=== PATIENT | female | born 1970 | race Caucasian/White ===

== ENCOUNTER 2020-03-16 18:00 | Inpatient (IN) | payer MEDICAID ==
[~2020-03-16] VITALS: Ht 175.3 cm; Wt 70.8 kg
[2020-03-16 19:09] LABS: BASOPHILS 0.1 % (0-2); HEMATOCRIT 36.9 % (36.0-48.0); HEMOGLOBIN 12.3 g/dL (12-16); IMMATURE GRANULOCYTES 0.6 % (0-5); LYMPHOCYTES 12.6 % (15-50); MCHC 33.3 g/dL (31.0-37.0); MEAN PLATELET VOLUME 8.5 fL (7.4-10.4); MONOCYTES 7.6 % (2-11); NEUTROPHILS 78.1 % (40-80); RDW 18.6 % (11.5-14.5); WBC 10.8 10x3/uL (4.8-10.8)
[2020-03-16 19:22] LABS: APTT 25.8 SECONDS (22.8-39.4); INR 0.99 (0.85-1.17)
[2020-03-16 19:23] LABS: ANION GAP 12.9 mmol/L (8-16); CALCIUM 9.2 mg/dL (8.5-10.1); CARBON DIOXIDE 28.9 mmol/L (21.0-32.0); CREATININE - SERUM 0.9 mg/dL (0.6-1.3); POTASSIUM - SERUM 3.8 mmol/L (3.5-5.1)
[2020-03-16 19:28] LABS: ALBUMIN 2.7 g/dL (3.4-5.0); BILIRUBIN - TOTAL 0.58 mg/dL (0.2-1.3); PROTEIN - SERUM 7.3 g/dL (6.4-8.2)
[2020-03-16 19:35] LABS: PLATELET COUNT 372 10x3/uL (130-400)
[2020-03-16 20:10] LABS: BILIRUBIN NEGATIVE (NEGATIVE); KETONE NEGATIVE (NEGATIVE); NITRITE NEGATIVE (NEGATIVE); UROBILINOGEN NORMAL (NORMAL)
[2020-03-16 20:11] LABS: BACTERIA FEW /hpf (NONE SEEN); WHITE CELLS - URINE 0-5 /hpf (0-5)
[2020-03-16 23:13] VITALS: BP 117/89; BMI 23.2
--- NOTE | 2020-03-16 23:45 | NUR ---
PROVIDED SANDWICH TRAY BEFORE MIDNIGHT. PATIENT VERBALIZES UNDERSTANDING OF NPO STATUS AFTER MIDNIGHT. CALL LIGHT CLOSE. CPOC.
[2020-03-17 06:58] LABS: BASOPHILS 0 % (0-2); EOSINOPHILS 1.7 % (0-7); HEMATOCRIT 33.7 % (36.0-48.0); IMMATURE GRANULOCYTES 0.4 % (0-5); MCH 28.9 pg (26.0-34.0); MCHC 32.6 g/dL (31.0-37.0); MCV 88.7 fL (80.0-100.0); MEAN PLATELET VOLUME 8.8 fL (7.4-10.4); MONOCYTES 8.8 % (2-11); NEUTROPHILS 74.1 % (40-80); PLATELET COUNT 393 10x3/uL (130-400); RDW 18.6 % (11.5-14.5)
[2020-03-17 07:26] LABS: INR 0.98 (0.85-1.17); PROTIME 12.9 SECONDS (11.6-15.0)
[2020-03-17 07:31] LABS: APTT 31.1 SECONDS (22.8-39.4)
[2020-03-17 07:45] LABS: CALC OSMOLALITY 277 mosm/kg (275-300); CALCIUM 8.5 mg/dL (8.5-10.1); CARBON DIOXIDE 26.9 mmol/L (21.0-32.0); CHLORIDE - SERUM 101 mmol/L (98-107); CREATININE - SERUM 0.7 mg/dL (0.6-1.3); GLUCOSE 104 mg/dL (74-106); MAGNESIUM - SERUM 2.1 mg/dL (1.8-2.4); PHOSPHOROUS 4.3 mg/dL (2.5-4.9); POTASSIUM - SERUM 3.9 mmol/L (3.5-5.1); PRO BNP 31 pg/mL (0-125); SODIUM 138 mmol/L (136-145); UREA NITROGEN 18 mg/dL (7-18); eGFR NON AFRICAN AMERICAN > 90 mL/min (90-120)
--- NOTE | 2020-03-17 09:01 | NUR ---
0700 BEDSIDE REPORT RCEIVED INSTRUCTED PT TO REMAIN NPO FOR PROCEEDURE VRBALIZED UNDERSTANDING.
--- NOTE | 2020-03-17 09:02 | NUR ---
0900 PATIENT NOT IN ROOM CALLED IR TO VERIFY THAT STAFF CAME TO GET HER FOR PARACENTHESIS
[2020-03-17 09:48] VITALS: BP 119/72
[2020-03-17 10:05] VITALS: BP 109/64
[2020-03-17 10:11] VITALS: Ht 175.3 cm; Wt 70.8 kg
[2020-03-17 12:00] VITALS: BP 93/60
[2020-03-17 15:40] LABS: ANION GAP 9.7 mmol/L (8-16); CALCIUM 8.4 mg/dL (8.5-10.1); CARBON DIOXIDE 30.8 mmol/L (21.0-32.0); MAGNESIUM - SERUM 1.9 mg/dL (1.8-2.4); PHOSPHOROUS 3.5 mg/dL (2.5-4.9); POTASSIUM - SERUM 3.5 mmol/L (3.5-5.1)
[2020-03-17 15:42] LABS: CREATININE - SERUM 0.9 mg/dL (0.6-1.3)
[2020-03-17 17:14] VITALS: BP 102/64
[2020-03-17 20:00] VITALS: BP 99/67
--- NOTE | 2020-03-17 20:00 | NUR ---
PATIENT RESTING IN BED WATCHING TV. NO S/S OF ACUTE DISTRESS. NO C/O AT THIS TIME. PATIENT HAS A LEFT FOREARM, SALINE LOC. IV IS PATENT WITHOUT REDNESS, SWELLING, OR TENDERNESS. PATIENT HAS A RIGHT PORT THAT IS NOT TO BE USED. PATIENT HAS A SMALL INCISION ON RIGHT SIDE FROM PARACENTISIS. CALL LIGHT WITHIN REACH. WILL CONTINUE TO MONITOR.
--- NOTE | 2020-03-17 20:04 | NUR ---
RETURND FROM IR WITH SMALL INCISION TO RLQ SITE CD NO DRAINAGE NOTED
--- NOTE | 2020-03-17 20:05 | NUR ---
1700 AMBULATING IN HALLS WITHOUT COMPLICATIONS
[2020-03-18 04:00] VITALS: BP 97/61
--- NOTE | 2020-03-18 05:14 | NUR ---
I have reviewed this patient and I concur with the Shift Assessment completed by the Licensed Practical Nurse today this shift.
[2020-03-18 06:34] LABS: BASOPHILS 0.1 % (0-2); EOSINOPHILS 1.2 % (0-7); HEMATOCRIT 32.2 % (36.0-48.0); HEMOGLOBIN 10.4 g/dL (12-16); IMMATURE GRANULOCYTES 0.4 % (0-5); LYMPHOCYTES 16.2 % (15-50); MCH 28.7 pg (26.0-34.0); MCHC 32.3 g/dL (31.0-37.0); MEAN PLATELET VOLUME 8.9 fL (7.4-10.4); MONOCYTES 8.7 % (2-11); NEUTROPHILS 73.4 % (40-80); PLATELET COUNT 340 10x3/uL (130-400); RBC 3.62 10x6/uL (4.00-5.40); RDW 18.6 % (11.5-14.5); WBC 8.1 10x3/uL (4.8-10.8)
[2020-03-18 06:51] LABS: ANION GAP 10.6 mmol/L (8-16); CALCIUM 8.1 mg/dL (8.5-10.1); CARBON DIOXIDE 28.9 mmol/L (21.0-32.0); CREATININE - SERUM 0.9 mg/dL (0.6-1.3); MAGNESIUM - SERUM 1.9 mg/dL (1.8-2.4); PHOSPHOROUS 3.6 mg/dL (2.5-4.9); POTASSIUM - SERUM 3.5 mmol/L (3.5-5.1)
--- NOTE | 2020-03-18 08:00 | NUR ---
ALERT AND ORIENTED X4 WITH DRESSING INTACT TO ABDOMEN. UP ADLIB AND DENIES ANY PAIN OR DISCOMFORT AT THIS TIME. ABDOMEN SOFT WITH BOWEL SOUNDS NOTED. ENCOURAGED TO USE CALL LIGHT FOR ASSSIT.
[2020-03-18 09:24] VITALS: BP 93/67
[2020-03-18 13:51] VITALS: BP 96/60
[2020-03-18] MEDS ORDERED: OMNICEF300 MG PO (15:07)
[2020-03-18] MEDS ORDERED: NICODERM CQ1 EAC3 TOPICAL (15:26)
--- NOTE | 2020-03-18 16:05 | NUR ---
IV DISCONTINUED AND VERBALIZED UNDERSTANDING OF DISCHARGE INSTRUCTIONS. STABLE AT TIME OF DEPARTURE.
== END 2020-03-18 16:05 | disposition home or self-care (01) | DRG 948 ==
LOC: D.ER 18:00 → D.MS 22:03 → OBSVTIME 22:03 → D.MS 03-17 14:49
PROVIDERS: Emergency Medicine; Family Medicine; Specialist; ADMIT Family Medicine; ATTEND Family Medicine
PROC: 0W9G3ZZ Drainage of Peritoneal Cavity, Percutaneous Approach (ICD-10-PCS; principal; 2020-03-17 09:05)
DX: R18.8 Other ascites (principal); F17.203 Nicotine dependence unspecified, with withdrawal; C56.9 Malignant neoplasm of unspecified ovary; N39.0 Urinary tract infection, site not specified

== ENCOUNTER 2020-03-28 08:19 | Inpatient (IN) | payer MEDICAID ==
[~2020-03-28] VITALS: Ht 167.6 cm; Wt 70.0 kg
--- NOTE | ~2020-03-28 | HEMODYNAMI ---
PATIENT:DASHA MCFARLAND MEDICAL RECORD: [id number] : 70 LOCATION:DRicardoAL [id number] ADMISSION DATE: 03/29/20 Generatedon:03/31/202010:12 Patient name: DASHA MCFARLAND Patient #: [id number] SSN: D OB: 1970 Date of study: 03/31/2020 Page: Of Hemodynamic Procedure Report Patient Data Patient Demographics Procedure consent was obtained First Name: DASHA Gender: Female Last Name: BARTOLO : 1970 Middle Initial: A Age: 50 year(s) Patient #: [id number] Race: Unknown Additional ID: [id number] Contact details Address: [address] [place] [address] State: [place] City: [facility] Zip code: [address] Past Medical History Allergies Allergen Reaction Date Comments Reported Penicillins 03/31/2020 Admission Admission Data Admission Date: 03/29/2020 Admission Time: 17:44 Room #: 2202 Procedure Procedure Types Cath Procedure Peripheral Cath Diagnostic Procedure Miscellaneous Pleurex Pleurex Cath Place w/ Imaging Procedure Description Procedure Date Procedure Date: 03/31/2020 Procedure Start Time: 9:30 Procedure End Time: 10:11 Procedure Staff Name Function Nimesh Bang MD Performing Physician ANTELMO JOINER RT Monitor Rickie Zapien RT Scrub Kandice Cruz RN Nurse Ana COLLINS RN Nurse Procedure Data Cath Procedure Fluoroscopy Diagnostic fluoroscopy Total fluoroscopy Time: 1.2 time: 1.2 min min Diagnostic fluoroscopy Total fluoroscopy dose: 43 dose: 43 mGy mGy Procedure Medications Medication Administration Route Dosage Heparin Flush Bag added to field 3 bags (1000units/500ml NS) Lidocaine 1% added to field 20 Vancomycin I.V.P.B 1 g Fentanyl I.V. 50 mcg Versed I.V. 1 mg Fentanyl I.V. 25 mcg Versed I.V. 0.5 mg Fentanyl I.V. 25 mcg Versed I.V. 0.5 mg Hemodynamics Rest Heart Rate: 103 (bpm) Snapshots Pre Cath Intra NCS Post Cath Vital Signs Time Heart Resp SPO2 etCO2 NIBP (mmHg) Rhythm Pain Status Sedation Rate (ipm) (%) (mmHg) Level (bpm) 8:46:48 101 15 0 106/73(82) NSR 0 (11) , No 10(A) pain 8:50:47 101 21 31.4 108/77(89) NSR 0 (11) , No 10(A) pain 8:54:47 100 19 32.9 110/77(87) NSR 0 (11) , No 10(A) pain 8:58:46 100 18 32.2 113/77(92) NSR 0 (11) , No 10(A) pain 9:02:48 96 21 24.7 112/76(92) NSR 0 (11) , No 10(A) pain 9:06:52 95 22 20.2 113/66(86) NSR 0 (11) , No 10(A) pain 9:10:54 96 19 30.7 117/78(90) NSR 0 (11) , No 10(A) pain 9:14:57 97 20 100 30.7 115/76(96) NSR 0 (11) , No 10(A) pain 9:18:59 98 16 100 33.7 112/77(98) NSR 0 (11) , No 10(A) pain 9:23:01 99 16 100 32.9 112/78(92) NSR 0 (11) , No 10(A) pain 9:27:01 101 16 32.9 114/81(96) NSR 4 (11) , 9(A) Distressing 9:31:02 99 18 32.2 112/78(91) NSR 3 (11) , 9(A) Tolerable 9:35:02 100 16 100 36.7 115/79(92) NSR 3 (11) , 9(A) Tolerable 9:39:01 100 14 99 35.9 119/83(93) NSR 0 (11) , No 8(A) pain 9:43:03 100 12 100 37.4 119/77(108) NSR 0 (11) , No 8(A) pain 9:47:07 101 11 100 35.9 119/78(90) NSR 0 (11) , No 8(A) pain 9:51:08 99 12 100 37.4 112/81(93) NSR 0 (11) , No 8(A) pain 9:55:06 96 12 99 37.4 117/82(102) NSR 0 (11) , No 8(A) pain 9:59:08 98 13 100 38.9 117/76(91) NSR 0 (11) , No 8(A) pain 10:03:10 95 17 100 32.9 112/73(89) NSR 0 (11) , No 9(A) pain 10:07:07 100 15 100 36.7 113/83(96) NSR 0 (11) , No 9(A) pain 10:11:09 95 15 100 34.4 115/73(102) NSR 0 (11) , No 9(A) pain Medications Time Medication Route Dose Verified Delivered Reason Notes Effe ctiveness by by 8:53:19 Heparin Flush added 3 Nimesh Beavers used for Bag to bags Beti Bang MD procedure (1000units/500ml field WEI NS) 8:53:32 Lidocaine 1% added 20ml Nimesh Beavers for local to vial Beti Bang MD anesthetic field WEI 8:53:50 Vancomycin I.V.P.B 1 g Nimesh Perez Per KARINA Bang physician RN 9:26:36 Fentanyl I.V. 50 Nimesh Mcdonaldr for mcg Burda, KARINA sedation RN 9:26:43 Versed I.V. 1 mg Nimesh Perez for Burda, KARINA sedation RN 9:30:31 Fentanyl I.V. 25 Nimesh Mcdonaldr for mcg Burda, KARINA sedation RN 9:30:34 Versed I.V. 0.5 Nimesh Minner for mg Burda, KARINA sedation RN 9:36:44 Fentanyl I.V. 25 Nimesh Mcdonaldr for mcg Burda, KARINA sedation RN 9:36:51 Versed I.V. 0.5 Nimesh Minner for mg Burda, KARINA sedation grey tender Log Time Note 8:45:28 Kandice Cruz RN sent for patient. Start room use. 8:45:29 Time tracking: Regular hours (M-F 7:00 - 5:00) 8:45:34 Plan of Care:Hemodynamics will remain stable., Cardiac rhythm will remain stable., Comfort level will be maintained., Respiratory function will remain adequate., Patient/ family verbilizes understanding of procedure., Procedure tolerated without complication., Recovers from procedure without complications.. 8:45:39 Patient received from Med/Surg to IR Alert and oriented. Tansferred to table in Supine position. 8:45:41 Signed procedure consent form obtained from patient. 8:45:42 Warm blankets applied, and junaid hugger turned on for patient comfort. 8:45:43 Correct patient and procedure confirmed by team. 8:45:43 ECG and BP/O2 sat monitors applied to patient. 8:45:45 Vital chart was started 8:45:58 Baseline sample Acquired. 8:46:14 Full Disclosure recording started 8:46:14 - 8:46:19 H&P Date Dictated: 03/31/2020 Within 30 days and on chart.. 8:46:21 Pre-op teaching completed and patient verbalized understanding. 8:46:22 Pre-procedure instructions explained to patient. 8:46:27 Family in patients room. 8:46:29 Patient NPO since Midnight. 8:46:34 Patient allergic to Penicillins 8:48:49 Is the patient allergic to Iodine/contrast media? No. 8:48:50 Is patient on blood thinner?Yes 8:48:52 Patient diabetic? No. 8:48:55 - 8:48:57 ----Pre-sedation anethsthesia assessment.---- 8:48:59 Previous problem with sedation/anesthesia? No ? 8:49:02 Snore? Yes 8:49:04 Sleep apnea? No 8:49:06 Deviated septum? No 8:49:08 Opens mouth fully? Yes 8:49:12 Sticks out tongue? Yes 8:49:18 Airway obstruction? No ? 8:49:25 Dentures? No ? 8:51:49 - 8:53:19 Heparin Flush Bag (1000units/500ml NS) 3 bags added to field was administered by Nimesh Bang MD; used for procedure; Verbal order read back and verified. 8:53:32 Lidocaine 1% 20ml vial added to field was administered by Nimesh Bang MD; for local anesthetic; Verbal order read back and verified. 8:53:50 Vancomycin 1 g I.V.P.B was administered by Ana COLLINS RN; Per physician; Verbal order read back and verified. 9:07:18 Right abdomen area was prepped with chlora-prep and draped in sterile fashion 9:07:19 Alarms reviewed by Malinda Batres 9:07:20 Sharps counted by scrub and verified by Trey 9:07:21 - 9:12:50 ASPIRA PLEURAL DRAIN CATH ([id number]) opened to sterile field. 9:24:37 - 9:24:39 Physician arrived 9:25:06 --------ALL STOP TIME OUT------ ::07 Final Timeout: patient, procedure, and site verified with staff and physician. All members of the team are in agreement. :25:11 Right abdomen site verified by team. ::15 Fire Safety Assessment: A--An alcohol-based skin anteseptic being used preoperatively., C--Open oxygen or nitrous oxide is being used. 9:25:23 - 9:25:26 Use device set IR Diagnostic 9:25:27 Bag Decanter () opened to sterile field. 9:25:27 Sterile Angiographic Pack opened to sterile field. 9:25:28 Tegaderm 4 x 4 ([id number]) opened to sterile field. 9:25:58 - 9:26:36 Fentanyl 50 mcg I.V. was administered by Ana COLLINS RN; for sedation; Verbal order read back and verified. 9::43 Versed 1 mg I.V. was administered by Ana COLLINS RN; for sedation; Verbal order read back and verified. 9:30:02 MICROPUNCTURE 4FR Tarari ([id number]) opened to sterile field. 9:30:08 Procedure started. 9:30:17 Local anesthetic to Abdominal area with Lidocaine 1% by Nimesh Bang MD.INITIAL ACCESS ONLY 9:30:31 Fentanyl 25 mcg I.V. was administered by Ana COLLINS RN; for sedation; Verbal order read back and verified. 9:30:34 Versed 0.5 mg I.V. was administered by Ana COLLINS RN; for sedation; Verbal order read back and verified. 9:35:27 Local anesthetic to Abdominal area with Lidocaine 1% by Nimesh Bang MD.ADDITIONAL ACCESS 9:36:44 Fentanyl 25 mcg I.V. was administered by Ana COLLINS RN; for sedation; Verbal order read back and verified. 9:36:51 Versed 0.5 mg I.V. was administered by Ana COLLINS RN; for sedation; Verbal order read back and verified. 9:59:21 AMPLATZ Super Stiff 75cm wire ([id number]) opened to sterile field. 9:59:47 ASPIRA DRESSING KIT ([id number] opened to sterile field. 10:00:13 Dermabond Pen opened to sterile field. 10:00:22 3-0 Vicryl Single Pack [id number] opened to sterile field. 10:00:27 2-0 Silk 685H opened to sterile field. 10:07:25 - 10:10:03 Procedure ended.(Physican Out) 10:10:07 Fluoroscopy time 01.20 minutes. 10:10:10 Fluoroscopy dose: 43 mGy 10:10:10 Flurop Dose total: 43 10:10:13 Sharps counted by scrub and verified by R.NRicardo 10:10:24 Post-op/insertion site Right Abdominal area dressed using a Dermabond, 4x4 and tegaderm.. 10:10:43 Post procedure instruction explained to patient.Patient verbalizes understanding. 10:10:45 Procedure and supply charges have been captured, reviewed, submitted an d are correct. 10:11:16 Vital chart was stopped 10:11:29 Operative report dictated upon procedure completion. 10:11:30 See physician's report for complete and final results. 10:11:32 Procedure ended. 10:11:32 Full Disclosure recording stopped Device Usage Item Name Manufacture Quantity Catalog Hospital Part Current Minima l Lot# / Number Charge Number Stock Stock Serial# Code ASPIRA Merit 1 [id number] [id number] [id number] 1 PLEURAL DRAIN Medical CATH ([id number]) Bag Decanter Microtek 1 2001S 900424 29114 [id number] 5 (2001S) Medical Inc. Sterile Cardinal 1 [id number] 882249 668445 5 Angiographic Health Pack Tegaderm 4 x 3M 1 1626W 382763 881242 347163 5 4 (1626W) MICROPUNCTURE Cook Medical 1 [id number] 134626 686521 161814 5 4FR Cook ([id number]) AMPLATZ Super [place] 1 [id number] 569246 848936 947141 5 Stiff 75cm Scientific wire ([id number]) ASPIRA Merit 1 [id number] 819977 691591 1 DRESSING KIT Medical ([id number] Dermabond Pen Ethicon 1 [id number] 792600 817716 5 3-0 Vicryl Ethicon 1 [id number] 434018 520304 669590 5 Single Pack [id number] 2-0 Silk 685H Ethicon 1 685H 850126 95897 478203 5 Signature Audit [place] Stage Time Signature Unsigned Intra-Procedure 03/31/2020 ANTELMO JOINER RT 10:12:06 AM (R) [id number] [place] [address]
[~2020-03-28 08:19] MED LIST: NICODERM CQ1 EAC3 TOPICAL; OMNICEF300 MG PO
[2020-03-28 08:44] LABS: BASOPHILS 0.4 % (0-2); EOSINOPHILS 0.8 % (0-7); HEMATOCRIT 34.8 % (36.0-48.0); HEMOGLOBIN 11.3 g/dL (12-16); IMMATURE GRANULOCYTES 0.4 % (0-5); LYMPHOCYTES 22.4 % (15-50); MCH 28.9 pg (26.0-34.0); MCHC 32.5 g/dL (31.0-37.0); MEAN PLATELET VOLUME 8.8 fL (7.4-10.4); MONOCYTES 18.4 % (2-11); NEUTROPHILS 57.6 % (40-80); RBC 3.91 10x6/uL (4.00-5.40); RDW 18.5 % (11.5-14.5); WBC 5.2 10x3/uL (4.8-10.8)
[2020-03-28 08:54] LABS: ANION GAP 11.8 mmol/L (8-16); CALCIUM 9.6 mg/dL (8.5-10.1); CARBON DIOXIDE 27.7 mmol/L (21.0-32.0); CREATININE - SERUM 0.9 mg/dL (0.6-1.3); PLATELET COUNT 509 10x3/uL (130-400); POTASSIUM - SERUM 4.5 mmol/L (3.5-5.1)
[2020-03-28 09:01] LABS: ALBUMIN 2.4 g/dL (3.4-5.0); BILIRUBIN - TOTAL 0.31 mg/dL (0.2-1.3); PROTEIN - SERUM 7.1 g/dL (6.4-8.2)
--- NOTE | 2020-03-28 09:46 | NUR ---
PT TO RADIOLOGY VIA STRETCHER AT THIS TIME WITH FARM PRODUCT PURCHASER.
[2020-03-28 10:24] LABS: APTT 27.4 SECONDS (22.8-39.4); INR 0.97 (0.85-1.17); PROTIME 12.9 SECONDS (11.6-15.0)
--- NOTE | 2020-03-28 13:10 | NUR ---
received pt from ER via WC. C/O pain in abdomin. EQUIP MAINT ENG ordered and is being hooked up. VS stable and WDL. Needs anticipated and met. Will conrinue to monitor
[2020-03-28 13:24] VITALS: BP 113/82; Ht 167.6 cm; Wt 70.0 kg
--- NOTE | 2020-03-28 16:32 | NUR ---
OUT OF ROOM FOR PROCEDURE
--- NOTE | 2020-03-28 17:39 | NUR ---
BACK IN ROOM. NO ACUTE DISTRESS NOTED. VS STABLE: BP 93/65 SPO2 95% ON ROOM AIR, HR 98, TEMP 98.2 MOTHER AT BEDSIDE. NEEDS ANTICIPATED AND MET. WILL CONTINUE TO MONITOR
[2020-03-28 19:54] VITALS: BP 104/70
--- NOTE | 2020-03-28 22:30 | NUR ---
PATIENT RESTING IN BED WITH FAMILY AT BEDSIDE. NO S/S OF ACUTE DISTRESS. NO C/O AT THIS TIME. PATIENT HAS RIGHT AC, NORMAL SALINE @ 75 ML/HR. IV IS PATENT WITHOUT REDNESS, SWELLING, OR TENDERNESS. PATIENT HAS MORPHINE LOSS CLAIM CLERK. PATIENT IS UP ADLIB CALL LIGHT WITHIN REACH. WILL CONTINUE TO [facility].
[2020-03-28 23:55] VITALS: BP 98/67
[2020-03-29 04:12] VITALS: BP 90/58
[2020-03-29 06:11] LABS: HEMATOCRIT 31.5 % (36.0-48.0); HEMOGLOBIN 9.9 g/dL (12-16); MCH 28.3 pg (26.0-34.0); MCHC 31.4 g/dL (31.0-37.0); MEAN PLATELET VOLUME 8.7 fL (7.4-10.4); PLATELET COUNT 491 10x3/uL (130-400); RDW 18.8 % (11.5-14.5); WBC 4.3 10x3/uL (4.8-10.8)
[2020-03-29 06:32] LABS: ALBUMIN 1.8 g/dL (3.4-5.0); ALKALINE PHOSPHATASE 101 U/L (30-120); ALT (SGPT) 22 U/L (10-68); BILIRUBIN - TOTAL 0.09 mg/dL (0.2-1.3); CALC OSMOLALITY 269 mosm/kg (275-300); CALCIUM 8.6 mg/dL (8.5-10.1); CARBON DIOXIDE 27.1 mmol/L (21.0-32.0); CHLORIDE - SERUM 100 mmol/L (98-107); CREATININE - SERUM 0.8 mg/dL (0.6-1.3); GLUCOSE 108 mg/dL (74-106); POTASSIUM - SERUM 4.5 mmol/L (3.5-5.1); PROTEIN - SERUM 5.7 g/dL (6.4-8.2); SODIUM 134 mmol/L (136-145); UREA NITROGEN 14 mg/dL (7-18); eGFR NON AFRICAN AMERICAN 80 mL/min (90-120)
[2020-03-29 08:15] LABS: BASOPHILS 1 % (0-2); EOSINOPHILS 5 % (0-7); LYMPHOCYTES 24 % (15-50); MONOCYTES 10 % (2-11); NEUTROPHILS 60 % (40-80); PLATELET ESTIMATE NORMAL
[2020-03-29 08:55] VITALS: BP 95/54
[2020-03-29 12:57] VITALS: BP 91/55
--- NOTE | 2020-03-29 15:05 | MORECARE ---
CASE MANAGEMENT DISCHARGE SUMMARY PATIENT: DASHA MCFARLAND UNIT: [id number] ADM DATE: 03/28/20 AGE: 50 : 70 SEX: F ROOM/BED: D.2202 AUTHOR: MILLIE MINA PHYSICIAN: REFERRING PHYSICIAN: JOSE JAMA DO DATE OF SERVICE: 03/29/20 Discharge Plan Patient Name: DASHA MCFARLAND Facility: [facility]:[place] : 1970 Planned Disposition: Home or Self Care Anticipated Discharge Date: Discharge Date: Expected LOS: Initial Reviewer: [email or web address] Initial Review Date: 03/28/2020 Generated: 03/29/20 4:05 pm DCPIA - Discharge Planning Initial Assessment Updated by [email or web address]: Tameka Hampton on 03/29/20 3:00 pm * Is the patient Alert and Oriented? Yes * PCP [facility] * Pharmacy [facility] * Preadmission Environment Home with Family * ADLs Independent * Equipment Other * Other Equipment ADJUSTABLE BED * List name and contact numbers for known caregivers / representatives who currently or will assist patient after discharge: ANDREAS PEARSON ( MOTHER) [phone] * Verbal permission to speak to the caregivers and representatives has been obtained from the patient. N/A * Community resources currently utilized None * Additional services required to return to the preadmission environment? No * Can the patient safely return to the preadmission environment? Yes * Has this patient been hospitalized within the prior 30 days at any hospital? Yes Patient Name: DASHA MCFARLAND Page 26156 at 1505 All edits/amendments must be made on the electronic document DICTATION DATE: 03/29/20 1505 MACHINIST MATE: JOSE GUADALUPE 03/29/20 1505 RPT#: [id number] DC DATE: STATUS: ADM IN [facility] [address] [place] [address] END OF REPORT
--- NOTE | 2020-03-29 15:21 | MORECARE ---
CASE MANAGEMENT DISCHARGE SUMMARY PATIENT: DASHA MCFARLAND UNIT: [id number] ADM DATE: 03/28/20 AGE: 50 : 70 SEX: F ROOM/BED: D.2202 AUTHOR: KEELEYDOC PHYSICIAN: REFERRING PHYSICIAN: JOSE JAMA DO DATE OF SERVICE: 03/29/20 Discharge Plan Patient Name: DASHA CMFARLAND Facility: [facility]:[place] : 1970 Planned Disposition: Home or Self Care Anticipated Discharge Date: Discharge Date: Expected LOS: Initial Reviewer: [email or web address] Initial Review Date: 03/28/2020 Generated: 03/29/20 4:21 pm Comments DCP- Discharge Planning Updated by [email or web address]: Tameka Hampton on 03/29/20 2:[address] Patient Name: DASHA MCFARLAND Admission Status: ER Accout number: [id number] Admission Date: 03-28-2020 : 1970 Admission Diagnosis: Attending: JOSE JAMA Current LOS: 1 Anticipated DC Date: Planned Disposition: Home or Self Care Primary Insurance: MEDICAID [place] Discharge Planning Comments: CASE MANAGEMENT MET WITH PATIENT TO ASSESS DISCHARGE PLANNING NEEDS. PATIENT LIVES AT HOME WITH HER CHILDREN WHO HELP HER. SHE STATED THAT HER MOTHER WILL BE HER CUPOLA CHARGER INSULATION HOME AND HELPS HER WITH. SHE HAS A ADJUSTABLE BED AT HOME. SHE DOES NOT HAVE ANY COMMUNITY HELP AT THIS TIME. SHE IS UNSURE ABOUT HOME HEALTH. HER HOME ADDRESS IS [facility] [phone] CM WILL CONTINUE TO FOLLOW AND ASSIST NEEDED FOR DC PLANNING Sonography Technologist: Tameka Hampton DCPIA - Discharge Planning Initial Assessment Updated by [email or web address]: Tameka Hampton on 03/29/20 3:00 pm * Is the patient Alert and Oriented? Yes * PCP [facility] * Pharmacy [facility] * Preadmission Environment Home with Family * ADLs Independent * Equipment Other * Other Equipment ADJUSTABLE BED * List name and contact numbers for known caregivers / representatives who currently or will assist patient after discharge: ANDREAS PEARSON ( MOTHER) [phone] * Verbal permission to speak to the caregivers and representatives has been obtained from the patient. N/A * Community resources currently utilized None * Additional services required to return to the preadmission environment? No * Can the patient safely return to the preadmission environment? Yes * Has this patient been hospitalized within the prior 30 days at any hospital? Yes Last DP export: 03/29/20 2:05 p Patient Name: DASHA MCFARLAND Page [phone] at 1521 All edits/amendments must be made on the electronic document DICTATION DATE: 03/29/201520 SUPERVISOR SHIPFITTERS: JOSE GUADALUPE 03/29/20 152 RPT#: [id number] DC DATE: STATUS: ADM IN [facility] [address] [place] [address] END OF REPORT
[2020-03-29 18:08] VITALS: BP 98/50
[2020-03-29 19:13] VITALS: BP 94/65
[2020-03-29 19:48] LABS: CKMB 0.4 U/L (0.0-3.6); CREATINE KINASE 23 UL (21-215); TROPONIN-I < 0.017 ng/mL (0.000-0.060)
--- NOTE | 2020-03-29 20:00 | NUR ---
RESTING IN BED, C/O MAUSEA ZOFRAN GIVEN, TECHNOLOGY COACH IN USE FOR PAIN CONTROL, SEE SHIFT ASSESSMENT, CALL LIGHT IN REACH
[2020-03-29 22:26] LABS: CKMB 0.6 U/L (0.0-3.6); CREATINE KINASE 26 UL (21-215); TROPONIN-I < 0.017 ng/mL (0.000-0.060)
[2020-03-30 03:34] LABS: BASOPHILS 0.2 % (0-2); EOSINOPHILS 1.3 % (0-7); HEMATOCRIT 32.8 % (36.0-48.0); HEMOGLOBIN 10.4 g/dL (12-16); IMMATURE GRANULOCYTES 0.4 % (0-5); LYMPHOCYTES 22.8 % (15-50); MCH 28.6 pg (26.0-34.0); MCHC 31.7 g/dL (31.0-37.0); MCV 90.1 fL (80.0-100.0); MEAN PLATELET VOLUME 8.7 fL (7.4-10.4); MONOCYTES 19.5 % (2-11); NEUTROPHILS 55.8 % (40-80); PLATELET COUNT 511 10x3/uL (130-400); RBC 3.64 10x6/uL (4.00-5.40); RDW 18.6 % (11.5-14.5); WBC 4.8 10x3/uL (4.8-10.8)
[2020-03-30 04:00] VITALS: BP 96/48
[2020-03-30 04:10] LABS: CALC OSMOLALITY 264 mosm/kg (275-300); CALCIUM 8.8 mg/dL (8.5-10.1); CARBON DIOXIDE 25.4 mmol/L (21.0-32.0); CHLORIDE - SERUM 100 mmol/L (98-107); CKMB 0.6 U/L (0.0-3.6); CREATINE KINASE 23 UL (21-215); CREATININE - SERUM 0.7 mg/dL (0.6-1.3); GLUCOSE 104 mg/dL (74-106); POTASSIUM - SERUM 4.3 mmol/L (3.5-5.1); SODIUM 132 mmol/L (136-145); TROPONIN-I < 0.017 ng/mL (0.000-0.060); UREA NITROGEN 13 mg/dL (7-18); eGFR NON AFRICAN AMERICAN > 90 mL/min (90-120)
--- NOTE | 2020-03-30 07:30 | NUR ---
REC'D IN BED AWAKE AND ALERT. RESP EVEN AND UNLABORED WITN NO DISTRESS NOTED. CAN EXPRESS NEEDS AND WANTS. NO C/O NOTED OR VOICED. ASSESSMENT COMPLETED. DENIES ANY PAIN OR DISCOMFORT AT THIS TIME. C/L IN REACH AT BEDSIDE.
[2020-03-30 09:08] VITALS: BP 90/72
[2020-03-30 12:14] VITALS: BP 102/70
--- NOTE | 2020-03-30 12:51 | NUR ---
PATIENT UP IN BED EATING. DENIES NEEDS AT THIS TIME. FAMILY AT BEDSIDE. FREE FROM SIGNS OF DISTRESS. WILL CONTINUE TO MONITOR THROUGHOUT THE DAY.
[2020-03-30 17:07] VITALS: BP 104/69
--- NOTE | 2020-03-30 19:00 | NUR ---
PATIENT ALERT AND ORIENTED WHEN ENTERING THE ROOM. PATIENT HAS MORPHINE JAILKEEPER INFUSING AT 07/17/09. STATES MEDICATION IS EFFECTIVE FOR PAIN. DENIES FURTHER NEEDS AT THIS TIME. CALL LIGHT CLOSE. CPOC.
[2020-03-30 20:00] VITALS: BP 115/75
[2020-03-31 04:00] VITALS: BP 100/66
--- NOTE | 2020-03-31 04:18 | NUR ---
HIBBA CLEANSE, EKG, CONSENTS COMPLETED. PATIENT REMAINS NPO SINCE MIDNIGHT. DENIES FURTHER NEEDS AT THIS TIME. CPOC.
[2020-03-31 06:49] LABS: HEMATOCRIT 32.6 % (36.0-48.0); HEMOGLOBIN 10.5 g/dL (12-16); MCH 28.6 pg (26.0-34.0); MCHC 32.2 g/dL (31.0-37.0); MCV 88.8 fL (80.0-100.0); MEAN PLATELET VOLUME 8.9 fL (7.4-10.4); PLATELET COUNT 545 10x3/uL (130-400); RBC 3.67 10x6/uL (4.00-5.40); RDW 18.3 % (11.5-14.5); WBC 5.4 10x3/uL (4.8-10.8)
[2020-03-31 07:07] LABS: APTT 29.9 SECONDS (22.8-39.4); INR 1.08 (0.85-1.17); PROTIME 13.9 SECONDS (11.6-15.0)
[2020-03-31 07:28] LABS: CALC OSMOLALITY 267 mosm/kg (275-300); CALCIUM 8.3 mg/dL (8.5-10.1); CARBON DIOXIDE 22.6 mmol/L (21.0-32.0); CHLORIDE - SERUM 99 mmol/L (98-107); CREATININE - SERUM 0.7 mg/dL (0.6-1.3); GLUCOSE 109 mg/dL (74-106); MAGNESIUM - SERUM 1.7 mg/dL (1.8-2.4); POTASSIUM - SERUM 4.8 mmol/L (3.5-5.1); SODIUM 133 mmol/L (136-145); UREA NITROGEN 14 mg/dL (7-18); eGFR NON AFRICAN AMERICAN > 90 mL/min (90-120)
[2020-03-31 08:18] LABS: LYMPHOCYTES 14 % (15-50); MONOCYTES 19 % (2-11); NEUTROPHILS 64 % (40-80); PLATELET ESTIMATE INCREASED
[2020-03-31 09:25] VITALS: BP 106/73
--- NOTE | 2020-03-31 20:00 | NUR ---
PATIENT RESTING IN BED WATCHING TV. NO S/S OF ACUTE DISTRESS. NO C/O AT THIS TIME. PATIENT HAS RIGHT AC, NORMAL SALINE @ KVO AND MORPHINE ACCOUNTS PAYABLE ANALYST. IV IS PATENT WITHOUT REDNESS, SWELLING, OR TENDERNESS. PATIENT HAS BANADAGE ON RIGHT SIDE FROM PARACENTESIS DONE TODAY, DRESSING C/D/I. PATIENT HAS PLEUREX CATH ON RIGHT SIDE WELL. PATEINT IS UP ADLIB. CALL LIGHT WITHIN REACH. WILL CONTINUE TO MONITOR.
--- NOTE | 2020-04-01 03:19 | NUR ---
I have reviewed this patient and I concur with the Shift Assessment completed by the Licensed Practical Nurse today this shift.
[2020-04-01 04:00] VITALS: BP 100/68
[2020-04-01 06:48] LABS: CALC OSMOLALITY 258 mosm/kg (275-300); CALCIUM 8.3 mg/dL (8.5-10.1); CARBON DIOXIDE 22.8 mmol/L (21.0-32.0); CHLORIDE - SERUM 98 mmol/L (98-107); CREATININE - SERUM 0.7 mg/dL (0.6-1.3); GLUCOSE 109 mg/dL (74-106); MAGNESIUM - SERUM 1.7 mg/dL (1.8-2.4); POTASSIUM - SERUM 4.2 mmol/L (3.5-5.1); SODIUM 129 mmol/L (136-145); UREA NITROGEN 11 mg/dL (7-18); eGFR NON AFRICAN AMERICAN > 90 mL/min (90-120)
--- NOTE | 2020-04-01 07:20 | NUR ---
REC'D IN BED AWAKE AND ALERT. RESP EVEN AND UNLABORED WITH NO DISTRESS NOTED. CAN EXPRESS NEEDS AND WANTS. NO C/O NOTED OR VOICED CAN EXPRESS NEEDS AND WANTS. DENIES ANY PAIN OR DISCOMFORT AT THIS TIME. ASSESSMENT COMPLETED. C/L IN REACH AT BEDSIDE.
[2020-04-01 07:25] LABS: BASOPHILS 0.3 % (0-2); EOSINOPHILS 0.8 % (0-7); HEMATOCRIT 32.1 % (36.0-48.0); HEMOGLOBIN 10.4 g/dL (12-16); IMMATURE GRANULOCYTES 0.6 % (0-5); LYMPHOCYTES 15.8 % (15-50); MCH 28.7 pg (26.0-34.0); MCHC 32.4 g/dL (31.0-37.0); MCV 88.4 fL (80.0-100.0); MEAN PLATELET VOLUME 8.8 fL (7.4-10.4); MONOCYTES 30.7 % (2-11); NEUTROPHILS 51.8 % (40-80); PLATELET COUNT 496 10x3/uL (130-400); RBC 3.63 10x6/uL (4.00-5.40); RDW 18.3 % (11.5-14.5); WBC 6.3 10x3/uL (4.8-10.8)
--- NOTE | 2020-04-01 09:23 | MORECARE ---
CASE MANAGEMENT DISCHARGE SUMMARY PATIENT: DASHA MCFARLAND UNIT: [id number] ADM DATE: 03/29/20 AGE: 50 : 70 SEX: F ROOM/BED: D.2202 AUTHOR: KEELEYDOC PHYSICIAN: REFERRING PHYSICIAN: JOSE JAMA DO DATE OF SERVICE: 04/01/20 Discharge Plan Patient Name: DASHA MCFARLAND Facility: [facility]:[place] : 1970 Planned Disposition: Home or Self Care Anticipated Discharge Date: Discharge Date: Expected LOS: Initial Reviewer: [email or web address] Initial Review Date: 03/28/2020 Generated: 04/01/20 10:23 am DCP- Discharge Planning Updated by [email or web address]: Tameka Hampton on 03/29/20 2:[address] Patient Name: DASHA MCFARLAND Admission Status: ER Accout number: [id number] Admission Date: 03-28-2020 : 1970 Admission Diagnosis: Attending: JOSE JAMA Current LOS: 1 Anticipated DC Date: Planned Disposition: Home or Self Care Primary Insurance: MEDICAID [place] Discharge Planning Comments: CASE MANAGEMENT MET WITH PATIENT TO ASSESS DISCHARGE PLANNING NEEDS. PATIENT LIVES AT HOME WITH HER CHILDREN WHO HELP HER. SHE STATED THAT HER MOTHER WILL BE HER COREMAKER FLOOR HOME AND HELPS HER WITH. SHE HAS A ADJUSTABLE BED AT HOME. SHE DOES NOT HAVE ANY COMMUNITY HELP AT THIS TIME. SHE IS UNSURE ABOUT HOME HEALTH. HER [facility] ADDRESS IS [facility] [phone] CM WILL CONTINUE TO FOLLOW AND ASSIST NEEDED FOR DC PLANNING Rn Coronary Care Unit: Tameka Hampton DCPIA - Discharge Planning Initial Assessment Updated by [email or web address]: Tameka Hampton on 03/29/20 3:00 pm * Is the patient Alert and Oriented? Yes * PCP [facility] * Pharmacy [facility] * Preadmission Environment Home with Family * ADLs Independent * Equipment Other * Other Equipment ADJUSTABLE BED * List name and contact numbers for known caregivers / representatives who currently or will assist patient after discharge: ANDREAS PEARSON ( MOTHER) [phone] * Verbal permission to speak to the caregivers and representatives has been obtained from the patient. N/A * Community resources currently utilized None * Additional services required to return to the preadmission environment? No * Can the patient safely return to the preadmission environment? Yes * Has this patient been hospitalized within the prior 30 days at any hospital? Yes External Providers External Provider: [facility] Next Contact Date: Service Request Date: Service Type: Resolution: Reviewer: Comments: Last DP export: 03/29/20 2:21 p Patient Name: DASHA MCFARLAND Page 24971 at 0923 All edits/amendments must be made on the electronic document DICTATION DATE: 04/01/20922 DIRECTOR OF COMMUNITY LIFE: JOSE GUADALUPE 04/01/20922 RPT#: [id number] DC DATE: STATUS: ADM IN [facility] [address] [place] [address] END OF REPORT
--- NOTE | 2020-04-01 09:31 | MORECARE ---
CASE MANAGEMENT DISCHARGE SUMMARY PATIENT: DASHA MCFARLAND UNIT: [id number] ADM DATE: 03/29/20 AGE: 50 : 70 SEX: F ROOM/BED: D.2202 AUTHOR: MILLIE MINA PHYSICIAN: REFERRING PHYSICIAN: JOSE JAMA DO DATE OF SERVICE: 04/01/20 Discharge Plan Patient Name: DASHA MCFARLAND Facility: [facility]:[place] : 1970 Planned Disposition: Home or Self Care Anticipated Discharge Date: Discharge Date: Expected LOS: Initial Reviewer: [id number] Initial Review Date: 03/28/2020 Generated: 04/01/20 10:31 am Comments DCP- Discharge Planning Updated by [id number]: Tameka Hampton on 04/01/20 8:[address] PATIENT WILL BE DISCHARGING HOME TODAY WITH HOME HEALTH SHE DID NOT CARE WHAT COMPANY, CARE IV CAN START CARE TOMORROW AND PATIENT WAS FINE WITH THAT. I HAVE SENT THE REFERRAL OVER, PATIENT WILL BE STAYING WITH HER MOM WHILE SHE RECOVERS, HER MOTHERS ADDRESS IS [address] [place], [place] [address] IN [place]. SEE WITH IR HAS GONE OVER TEACHING WITH HER DRAIN . HE HAS GIVEN HER THE SUPPLIES SHE WILL NEED TILL HERS COME IN THE MAIL. HE HAS ORDERED THOSE AND THEY WILL BE SHIPPED TO HER HOME. PATIENT DID NOT THIS SHE NEEDED ANYTHING ELSE AT THIS TIME. CM WILL CONTINUE TO FOLLOW AND ASSIST NEEDED DCP- Discharge Planning Updated by [id number]: Tameka Hampton on 03/29/20 2:[address] Patient Name: DASHA MCFARLAND Admission Status: ER Accout number: [id number] Admission Date: 03-28-2020 : 1970 Admission Diagnosis: Attending: JOSE JAMA Current LOS: 1 Anticipated DC Date: Planned Disposition: Home or Self Care Primary Insurance: MEDICAID [place] Discharge Planning Comments: CASE MANAGEMENT MET WITH PATIENT TO ASSESS DISCHARGE PLANNING NEEDS. PATIENT LIVES AT HOME WITH HER CHILDREN WHO HELP HER. SHE STATED THAT HER MOTHER WILL BE HER REEL ASSEMBLER HOME AND HELPS HER WITH. SHE HAS A ADJUSTABLE BED AT HOME. SHE DOES NOT HAVE ANY COMMUNITY HELP AT THIS TIME. SHE IS UNSURE ABOUT HOME HEALTH. HER HOME ADDRESS IS [facility] [phone] CM WILL CONTINUE TO FOLLOW AND ASSIST NEEDED FOR DC PLANNING Check Weigher: Tameka Hampton DCPIA - Discharge Planning Initial Assessment Updated by [id number]: Tameka Hampton on 03/29/20 3:00 pm * Is the patient Alert and Oriented? Yes * [facility]CP [facility] * Pharmacy [facility] * Preadmission Environment Home with Family * ADLs Independent * Equipment Other * Other Equipment ADJUSTABLE BED * List name and contact numbers for known caregivers / representatives who currently or will assist patient after discharge: ANDREAS PEARSON ( MOTHER) [phone] * Verbal permission to speak to the caregivers and representatives has been obtained from the patient. N/A * Community resources currently utilized None * Additional services required to return to the preadmission environment? No * Can the patient safely return to the preadmission environment? Yes * Has this patient been hospitalized within the prior 30 days at any hospital? Yes Coverage Notice Reviewer: [id number] - Tameka Hampton Notice Issued Date-Time: 04/01/2020 8:45 Notice Type: Patient Choice Letter Notice Delivered To: Patient Relationship to Patient: Quality Compliance Manager Name: Delivery Method: HAND - Hand Delivered Sherita Days: Prior Verbal Notification: Recipient Understood Notice: Yes Recipient Signature: Yes Med Rec Note Co-signed by Attending: Coverage Notice Comment: [facility] Last DP export: 04/01/20 8:23 a Patient Name: DASHA MCFARLAND Page [phone] at 0931 All edits/amendments must be made on the electronic document DICTATION DATE: 04/01/20930 FOREST FIREFIGHTER: JOSE GUADALUPE 04/01/20930 RPT#: [id number] DC DATE: STATUS: ADM IN [facility] [address] [place] [address] END OF REPORT
--- NOTE | 2020-04-01 10:00 | MORECARE ---
CASE MANAGEMENT DISCHARGE SUMMARY PATIENT: DASHA MCFARLAND UNIT: [id number] ADM DATE: 03/29/20 AGE: 50 : 70 SEX: F ROOM/BED: D.2202 AUTHOR: MILLIE MINA PHYSICIAN: REFERRING PHYSICIAN: JOSE JAMA DO DATE OF SERVICE: 04/01/20 Discharge Plan Patient Name: DASHA MCFARLAND Facility: [facility]:[place] : 1970 Planned Disposition: Home or Self Care Anticipated Discharge Date: Discharge Date: Expected LOS: Initial Reviewer: [id number] Initial Review Date: 03/28/2020 Generated: 04/01/20 10:59 am Comments DCP- Discharge Planning Updated by [id number]: Tameka Hampton on 04/01/20 8:[address] PATIENT WILL BE DISCHARGING HOME TODAY WITH HOME HEALTH SHE DID NOT CARE WHAT COMPANY, CARE IV CAN START CARE TOMORROW AND PATIENT WAS FINE WITH THAT. I HAVE SENT THE REFERRAL OVER, PATIENT WILL BE STAYING WITH HER MOM WHILE SHE RECOVERS, HER MOTHERS ADDRESS IS [address] [place], [place] [address] IN [place]. SEE WITH IR HAS GONE OVER TEACHING WITH HER DRAIN . HE HAS GIVEN HER THE SUPPLIES SHE WILL NEED TILL HERS COME IN THE MAIL. HE HAS ORDERED THOSE AND THEY WILL BE SHIPPED TO HER HOME. PATIENT DID NOT THIS SHE NEEDED ANYTHING ELSE AT THIS TIME. CM WILL CONTINUE TO FOLLOW AND ASSIST NEEDED DCP- Discharge Planning Updated by [id number]: Tameka Hampton on 03/29/20 2:[address] Patient Name: DASHA MCFARLAND Admission Status: ER Accout number: [id number] Admission Date: 03-28-2020 : 1970 Admission Diagnosis: Attending: JOSE JAMA Current LOS: 1 Anticipated DC Date: Planned Disposition: Home or Self Care Primary Insurance: MEDICAID [place] Discharge Planning Comments: CASE MANAGEMENT MET WITH PATIENT TO ASSESS DISCHARGE PLANNING NEEDS. PATIENT LIVES AT HOME WITH HER CHILDREN WHO HELP HER. SHE STATED THAT HER MOTHER WILL BE HER RIGGING MAN HOME AND HELPS HER WITH. SHE HAS A ADJUSTABLE BED AT HOME. SHE DOES NOT HAVE ANY COMMUNITY HELP AT THIS TIME. SHE IS UNSURE ABOUT HOME HEALTH. HER HOME ADDRESS IS [facility] [phone] CM WILL CONTINUE TO FOLLOW AND ASSIST NEEDED FOR DC PLANNING Pre Owned Sales Manager: Tameka Hampton DCPIA - Discharge Planning Initial Assessment Updated by [id number]: Tameka Hampton on 03/29/20 3:00 pm * Is the patient Alert and Oriented? Yes * [facility]CP [facility] * Pharmacy [facility] * Preadmission Environment Home with Family * ADLs Independent * Equipment Other * Other Equipment ADJUSTABLE BED * List name and contact numbers for known caregivers / representatives who currently or will assist patient after discharge: ANDREAS PEARSON ( MOTHER) [phone] * Verbal permission to speak to the caregivers and representatives has been obtained from the patient. N/A * Community resources currently utilized None * Additional services required to return to the preadmission environment? No * Can the patient safely return to the preadmission environment? Yes * Has this patient been hospitalized within the prior 30 days at any hospital? Yes External Providers External Provider: [facility] Next Contact Date: Service Request Date: Service Type: Resolution: Reviewer: Comments: Coverage Notice Reviewer: [id number] - Tameka Hampton Notice Issued Date-Time: 04/01/2020 8:45 Notice Type: Patient Choice Letter Notice Delivered To: Patient Relationship to Patient: Respiratory Therapy Aide Name: Delivery Method: HAND - Hand Delivered Sherita Days: Prior Verbal Notification: Recipient Understood Notice: Yes Recipient Signature: Yes Med Rec Note Co-signed by Attending: Coverage Notice Comment: [facility] Last DP export: 04/01/20 8:32 a Patient Name: DASHA MCFARLAND Page [phone] at 1000 All edits/amendments must be made on the electronic document DICTATION DATE: 04/01/20958 MEDICAL PATHOLOGY TEACHER: JOSE GUADALUPE 04/01/20958 RPT#: [id number] DC DATE: STATUS: ADM IN [facility] [address] [place] [address] END OF REPORT
--- NOTE | 2020-04-01 10:07 | MORECARE ---
CASE MANAGEMENT DISCHARGE SUMMARY PATIENT: DASHA MCFARLAND UNIT: [id number] ADM DATE: 03/29/20 AGE: 50 : 70 SEX: F ROOM/BED: D.2202 AUTHOR: MILLIE MINA PHYSICIAN: REFERRING PHYSICIAN: JOSE JAMA DO DATE OF SERVICE: 04/01/20 Discharge Plan Patient Name: DASHA MCFARLAND Facility: [facility]:[place] : 1970 Planned Disposition: Home or Self Care Anticipated Discharge Date: Discharge Date: Expected LOS: Initial Reviewer: [id number] Initial Review Date: 03/28/2020 Generated: 04/01/20 11:06 am Comments DCP- Discharge Planning Updated by [id number]: Tameka Hampton on 04/01/20 9:[address] CARE IV WILL NOT BE ABLE TO MEET THE NEEDS OF THE PATIENT AT THIS TIME, I HAVE SENT THE REFERRAL TO [facility] DCP- Discharge Planning Updated by [id number]: Tameka Hampton on 04/01/20 8:[address] PATIENT WILL BE DISCHARGING HOME TODAY WITH HOME HEALTH SHE DID NOT CARE WHAT COMPANY, CARE IV CAN START CARE TOMORROW AND PATIENT WAS FINE WITH THAT. I HAVE SENT THE REFERRAL OVER, PATIENT WILL BE STAYING WITH HER MOM WHILE SHE RECOVERS, HER MOTHERS ADDRESS IS [address] [place], [place] [address] IN [place]. SEE WITH IR HAS GONE OVER TEACHING WITH HER DRAIN . HE HAS GIVEN HER THE SUPPLIES SHE WILL NEED TILL HERS COME IN THE MAIL. HE HAS ORDERED THOSE AND THEY WILL BE SHIPPED TO HER HOME. PATIENT DID NOT THIS SHE NEEDED ANYTHING ELSE AT THIS TIME. CM WILL CONTINUE TO FOLLOW AND ASSIST NEEDED DCP- Discharge Planning Updated by [id number]: Tameka Hampton on 03/29/20 2:[address] Patient Name: DASHA MCFARLAND Admission Status: ER Accout number: [id number] Admission Date: 03-28-2020 : 1970 Admission Diagnosis: Attending: JOSE JAMA Current LOS: 1 Anticipated DC Date: Planned Disposition: Home or Self Care Primary Insurance: MEDICAID [place] Discharge Planning Comments: CASE MANAGEMENT MET WITH PATIENT TO ASSESS DISCHARGE PLANNING NEEDS. PATIENT LIVES AT HOME WITH HER CHILDREN WHO HELP HER. SHE STATED THAT HER MOTHER WILL BE HER BREAD SLICER MACHINE HOME AND HELPS HER WITH. SHE HAS A ADJUSTABLE BED AT HOME. SHE DOES NOT HAVE ANY COMMUNITY HELP AT THIS TIME. SHE IS UNSURE ABOUT HOME HEALTH. HER HOME ADDRESS IS [facility] [phone] CM WILL CONTINUE TO FOLLOW AND ASSIST NEEDED FOR DC PLANNING [facility] Pricing Consultant: Tameka Hampton DCPIA - Discharge Planning Initial Assessment Updated by [id number]: Tameka Hampton on 03/29/20 3:00 pm * Is the patient Alert and Oriented? Yes * [facility]CP [facility] * [facility]acy [facility] * Preadmission Environment Home with Family * ADLs Independent * Equipment Other * Other Equipment ADJUSTABLE BED * List name and contact numbers for known caregivers / representatives who currently or will assist patient after discharge: ANDREAS PEARSON ( MOTHER) [phone] * Verbal permission to speak to the caregivers and representatives has been obtained from the patient. N/A * Community resources currently utilized None * Additional services required to return to the preadmission environment? No * Can the patient safely return to the preadmission environment? Yes * Has this patient been hospitalized within the prior 30 days at any hospital? Yes Coverage Notice Reviewer: [id number] - Tameka Hampton Notice Issued Date-Time: 04/01/2020 8:45 Notice Type: Patient Choice Letter Notice Delivered To: Patient Relationship to Patient: Resident Caregiver Name: Delivery Method: HAND - Hand Delivered Sherita Days: Prior Verbal Notification: Recipient Understood Notice: Yes Recipient Signature: Yes Med Rec Note Co-signed by Attending: Coverage Notice Comment: [facility] Last DP export: 04/01/20 9:00 a Patient Name: DASHA MCFARLAND Page 15042 at 1007 All edits/amendments must be made on the electronic document DICTATION DATE: 04/01/20 1006 TEXTILE SCREEN MAKER: JOSE GUADALUPE 04/01/20 1006 RPT#: [id number] DC DATE: STATUS: ADM IN [facility] [address] [place] [address] END OF REPORT
--- NOTE | 2020-04-01 10:14 | MORECARE ---
CASE MANAGEMENT DISCHARGE SUMMARY PATIENT: DASHA MCFARLAND UNIT: [id number] ADM DATE: 03/29/20 AGE: 50 : 70 SEX: F ROOM/BED: D.2202 AUTHOR: MILLIE MINA PHYSICIAN: REFERRING PHYSICIAN: JOSE JAMA DO DATE OF SERVICE: 04/01/20 Discharge Plan Patient Name: DASHA MCFARLAND Facility: [facility]:[place] : 1970 Planned Disposition: Home or Self Care Anticipated Discharge Date: Discharge Date: Expected LOS: Initial Reviewer: [id number] Initial Review Date: 03/28/2020 Generated: 04/01/20 11:13 am Comments DCP- Discharge Planning Updated by [email or web address]: Tameka Hampton on 04/01/20 9:[address] CARE IV WILL NOT BE ABLE TO MEET THE NEEDS OF THE PATIENT AT THIS TIME, I HAVE SENT THE REFERRAL TO [facility] DCP- Discharge Planning Updated by [id number]: Tameka Hampton on 04/01/20 8:[address] PATIENT WILL BE DISCHARGING HOME TODAY WITH HOME HEALTH SHE DID NOT CARE WHAT COMPANY, CARE IV CAN START CARE TOMORROW AND PATIENT WAS FINE WITH THAT. I HAVE SENT THE REFERRAL OVER, PATIENT WILL BE STAYING WITH HER MOM WHILE SHE RECOVERS, HER MOTHERS ADDRESS IS [address] [place], [place] [address] IN [place]. SEE WITH IR HAS GONE OVER TEACHING WITH HER DRAIN . HE HAS GIVEN HER THE SUPPLIES SHE WILL NEED TILL HERS COME IN THE MAIL. HE HAS ORDERED THOSE AND THEY WILL BE SHIPPED TO HER HOME. PATIENT DID NOT THIS SHE NEEDED ANYTHING ELSE AT THIS TIME. CM WILL CONTINUE TO FOLLOW AND ASSIST NEEDED DCP- Discharge Planning Updated by [id number]: Tameka Hampton on 03/29/20 2:[address] Patient Name: DASHA MCFARLAND Admission Status: ER Accout number: [id number] Admission Date: 03-28-2020 : 1970 Admission Diagnosis: Attending: JOSE JAMA Current LOS: 1 Anticipated DC Date: Planned Disposition: Home or Self Care Primary Insurance: MEDICAID [place] Discharge Planning Comments: CASE MANAGEMENT MET WITH PATIENT TO ASSESS DISCHARGE PLANNING NEEDS. PATIENT LIVES AT HOME WITH HER CHILDREN WHO HELP HER. SHE STATED THAT HER MOTHER WILL BE HER YARN PREPARATION SUPERVISOR HOME AND HELPS HER WITH. SHE HAS A ADJUSTABLE BED AT HOME. SHE DOES NOT HAVE ANY COMMUNITY HELP AT THIS TIME. SHE IS UNSURE ABOUT HOME HEALTH. HER HOME ADDRESS IS [facility] [phone] CM WILL CONTINUE TO FOLLOW AND ASSIST NEEDED FOR DC PLANNING Director Of Rooms: Tameka Hampton DCPIA - Discharge Planning Initial Assessment Updated by [id number]: Tameka Hampton on 03/29/20 3:00 pm * Is the patient Alert and Oriented? Yes * [facility]CP [facility] * Pharmacy [facility] * Preadmission Environment Home with Family * ADLs Independent * Equipment Other * Other Equipment ADJUSTABLE BED * List name and contact numbers for known caregivers / representatives who currently or will assist patient after discharge: ANDREAS PEARSON ( MOTHER) [phone] * Verbal permission to speak to the caregivers and representatives has been obtained from the patient. N/A * Community resources currently utilized None * Additional services required to return to the preadmission environment? No * Can the patient safely return to the preadmission environment? Yes * Has this patient been hospitalized within the prior 30 days at any hospital? Yes Coverage Notice Reviewer: [id number] - Tameka Hampotn Notice Issued Date-Time: 04/01/2020 8:45 Notice Type: Patient Choice Letter Notice Delivered To: Patient Relationship to Patient: Local Telephone Operator Name: Delivery Method: HAND - Hand Delivered Sherita Days: Prior Verbal Notification: Recipient Understood Notice: Yes Recipient Signature: Yes Med Rec Note Co-signed by Attending: Coverage Notice Comment: [facility] FOR [facility] Last DP export: 04/01/20 9:07 a Patient Name: DASHA MCFARLAND Page 56085 at 1014 All edits/amendments must be made on the electronic document DICTATION DATE: 04/01/20 1013 IMPREGNATING MACHINE OPERATOR: JOSE GUADALUPE 04/01/20 1013 RPT#: [id number] DC DATE: STATUS: ADM IN [facility] [address] [place] [address] END OF REPORT
--- NOTE | 2020-04-01 10:23 | NUR ---
PATIENT IN BED SLEEPING. AROUSES TO VOICE. DENIES NEEDS AT THIS TIME. FREE FROM SIGNS OF DISTRESS. BED LOW POSITION, CALL LIGHT IN REACH. WILL CONTINUE TO MONITOR.
[2020-04-01 10:43] VITALS: BP 102/67
[2020-04-01 13:03] VITALS: BP 100/67
[2020-04-01] MEDS ORDERED: ALDACTONE25 MG PO (13:40)
--- NOTE | 2020-04-01 14:18 | MORECARE ---
CASE MANAGEMENT DISCHARGE SUMMARY PATIENT: DASHA MCFARLAND UNIT: [id number] ADM DATE: 03/29/20 AGE: 50 : 70 SEX: F ROOM/BED: D.2202 AUTHOR: MILLIE MINA PHYSICIAN: REFERRING PHYSICIAN: JOSE JAMA DO DATE OF SERVICE: 04/01/20 Discharge Plan Patient Name: DASHA MCFARLAND Facility: [facility]:[place] : 1970 Planned Disposition: Home or Self Care Anticipated Discharge Date: Discharge Date: Expected LOS: Initial Reviewer: [id number] Initial Review Date: 03/28/2020 Generated: 04/01/20 3:17 pm Comments DCP- Discharge Planning Updated by [id number]: Tameka Hampton on 04/01/20 1:[address] PATIENT WILL BE DISCHARGING HOME TODAY WITH [facility] THEY WILL START CARE TOMORROW SHE HAS ALL SUPPLIES FOR HER DRAIN DCP- Discharge Planning Updated by [id number]: Tameka Hampton on 04/01/20 9:[address] CARE IV WILL NOT BE ABLE TO MEET THE NEEDS OF THE PATIENT AT THIS TIME, I HAVE SENT THE REFERRAL TO [facility] DCP- Discharge Planning Updated by [id number]: Tameka Hampton on 04/01/20 8:[address] PATIENT WILL BE DISCHARGING HOME TODAY WITH HOME HEALTH SHE DID NOT CARE WHAT COMPANY, CARE IV CAN START CARE TOMORROW AND PATIENT WAS FINE WITH THAT. I HAVE SENT THE REFERRAL OVER, PATIENT WILL BE STAYING WITH HER MOM WHILE SHE RECOVERS, HER MOTHERS ADDRESS IS [address] [place], [place] [address] IN [place]. SEE WITH IR HAS GONE OVER TEACHING WITH HER DRAIN . HE HAS GIVEN HER THE SUPPLIES SHE WILL NEED TILL HERS COME IN THE MAIL. HE HAS ORDERED THOSE AND THEY WILL BE SHIPPED TO HER HOME. PATIENT DID NOT THIS SHE NEEDED ANYTHING ELSE AT THIS TIME. CM WILL CONTINUE TO FOLLOW AND ASSIST NEEDED DCP- Discharge Planning Updated by [id number]: Tameka Hampton on 03/29/20 2:[address] Patient Name: DASHA MCFARLAND Admission Status: ER Accout number: [id number] Admission Date: 03-28-2020 : 1970 Admission Diagnosis: Attending: JOSE JAMA Current LOS: 1 Anticipated DC Date: Planned Disposition: Home or Self Care Primary Insurance: MEDICAID [place] Discharge Planning Comments: CASE MANAGEMENT MET WITH PATIENT TO ASSESS DISCHARGE PLANNING NEEDS. PATIENT LIVES AT HOME WITH HER CHILDREN WHO HELP HER. SHE STATED THAT HER MOTHER WILL BE HER PROGRAMMING INTERNSHIP HOME AND HELPS HER WITH. SHE HAS A ADJUSTABLE BED AT HOME. SHE DOES NOT HAVE ANY COMMUNITY HELP AT THIS TIME. SHE IS UNSURE ABOUT HOME HEALTH. HER [facility] ADDRESS IS [facility] [phone] CM WILL CONTINUE TO FOLLOW AND ASSIST NEEDED FOR DC PLANNING Test Baker: Tameka Hampton DCPIA - Discharge Planning Initial Assessment Updated by [id number]: Tameka Hampton on 03/29/20 3:00 pm * Is the patient Alert and Oriented? Yes * [facility]CP [facility] * [facility]acy [facility] * Preadmission Environment Home with Family * ADLs Independent * Equipment Other * Other Equipment ADJUSTABLE BED * List name and contact numbers for known caregivers / representatives who currently or will assist patient after discharge: ANDREAS PEARSON ( MOTHER) [phone] * Verbal permission to speak to the caregivers and representatives has been obtained from the patient. N/A * Community resources currently utilized None * Additional services required to return to the preadmission environment? No * Can the patient safely return to the preadmission environment? Yes * Has this patient been hospitalized within the prior 30 days at any hospital? Yes Coverage Notice Reviewer: [id number] - Tameka Hampton Notice Issued Date-Time: 04/01/2020 8:45 Notice Type: Patient Choice Letter Notice Delivered To: Patient Relationship to Patient: Data Technician Name: Delivery Method: HAND - Hand Delivered Sherita Days: Prior Verbal Notification: Recipient Understood Notice: Yes Recipient Signature: Yes Med Rec Note Co-signed by Attending: Coverage Notice Comment: [facility] FOR [facility] Last DP export: 04/01/20 9:13 a Patient Name: DASHA MCFARLAND Page 60047 at 1418 All edits/amendments must be made on the electronic document DICTATION DATE: 04/01/201416 BARN MANAGER: JOSE GUADALUPE 04/01/201416 RPT#: [id number] DC DATE: STATUS: ADM IN [facility] [address] [place] [address] END OF REPORT
[2020-04-01] MEDS ORDERED: CARAFATE1 G PO (14:45)
--- NOTE | 2020-04-01 15:44 | NUR ---
DC HOME AT THIS TIME IN STABLE CONDITION WITH ALL PERSONAL BELONGING. IN STABLE CONDITION UPON DEPARTURE. VOICES UNDERSTANDING OF DC INSTRUCTION. C/L IN REACH AT BEDSIDE.
--- NOTE | 2020-04-04 08:47 | MORECARE ---
CASE MANAGEMENT DISCHARGE SUMMARY PATIENT: DASHA MCFARLAND UNIT: [id number] ADM DATE: 03/29/20 AGE: 50 : 70 SEX: F ROOM/BED: D.2202 AUTHOR: MILLIE MINA PHYSICIAN: REFERRING PHYSICIAN: JOSE JAMA DO DATE OF SERVICE: 04/04/20 Discharge Plan Patient Name: DASHA MCFARLAND Facility: [facility]:[place] : 1970 Planned Disposition: Home or Self Care Anticipated Discharge Date: Discharge Date: 04/01/2020 Expected LOS: Initial Reviewer: [email or web address] Initial Review Date: 03/28/2020 Generated: 04/04/20 9:46 am Comments DCP- Discharge Planning Updated by [email or web address]: Tameka Hampton on 04/01/20 1:[address] PATIENT WILL BE DISCHARGING HOME TODAY WITH [facility] THEY WILL START CARE TOMORROW SHE HAS ALL SUPPLIES FOR HER DRAIN DCP- Discharge Planning Updated by [email or web address]: Tameka Hampton on 04/01/20 9:[address] CARE [facility] WILL NOT BE ABLE TO MEET THE NEEDS OF THE PATIENT AT THIS TIME, I HAVE SENT THE REFERRAL TO [facility] DCP- Discharge Planning Updated by [email or web address]: Tameka Hampton on 04/01/20 8:[address] PATIENT WILL BE DISCHARGING HOME TODAY WITH [facility] SHE DID NOT CARE WHAT COMPANY, CARE [facility] CAN START CARE TOMORROW AND PATIENT WAS FINE WITH THAT. I HAVE SENT THE REFERRAL OVER, PATIENT WILL BE STAYING WITH HER MOM WHILE SHE RECOVERS, HER MOTHERS ADDRESS IS [address] [place], [place] [address] IN [place]. SEE WITH IR HAS GONE OVER TEACHING WITH HER DRAIN . HE HAS GIVEN HER THE SUPPLIES SHE WILL NEED TILL HERS COME IN THE MAIL. HE HAS ORDERED THOSE AND THEY WILL BE SHIPPED TO HER HOME. PATIENT DID NOT THIS SHE NEEDED ANYTHING ELSE AT THIS TIME. CM WILL CONTINUE TO FOLLOW AND ASSIST NEEDED DCP- Discharge Planning Updated by [email or web address]: Tameka Hampton on 03/29/20 2:[address] Patient Name: DASHA MCFARLAND Admission Status: ER Accout number: [id number] Admission Date: 03-28-2020 : 1970 Admission Diagnosis: Attending: JOSE JAMA Current LOS: 1 Anticipated DC Date: Planned Disposition: Home or Self Care Primary Insurance: MEDICAID [place] Discharge Planning Comments: CASE MANAGEMENT MET WITH PATIENT TO ASSESS DISCHARGE PLANNING NEEDS. PATIENT LIVES AT HOME WITH HER CHILDREN WHO HELP HER. SHE STATED THAT HER MOTHER WILL BE HER REELER OPERATOR HOME AND HELPS HER WITH. SHE HAS A ADJUSTABLE BED AT HOME. SHE DOES NOT HAVE ANY COMMUNITY HELP AT THIS TIME. SHE IS UNSURE ABOUT HOME HEALTH. HER HOME ADDRESS IS [facility] [phone] CM WILL CONTINUE TO FOLLOW AND ASSIST NEEDED FOR DC PLANNING Procurement Buyer: Tameka Hampton DCPIA - Discharge Planning Initial Assessment Updated by [email or web address]: Tameka Hampton on 03/29/20 3:00 pm * Is the patient Alert and Oriented? Yes * [facility] * Pharmacy [facility] * Preadmission Environment Home with Family * ADLs Independent * Equipment Other * Other Equipment ADJUSTABLE BED * List name and contact numbers for known caregivers / representatives who currently or will assist patient after discharge: ANDREAS PEARSON ( MOTHER) [phone] * Verbal permission to speak to the caregivers and representatives has been obtained from the patient. N/A * Community resources currently utilized None * Additional services required to return to the preadmission environment? No * Can the patient safely return to the preadmission environment? Yes * Has this patient been hospitalized within the prior 30 days at any hospital? Yes Coverage Notice Reviewer: [id number] - Tameka Hampton Notice Issued Date-Time: 04/01/2020 8:45 Notice Type: Patient Choice Letter Notice Delivered To: Patient Relationship to Patient: River Guide Name: Delivery Method: HAND - Hand Delivered Sherita Days: Prior Verbal Notification: Recipient Understood Notice: Yes Recipient Signature: Yes Med Rec Note Co-signed by Attending: Coverage Notice Comment: [facility] FOR HH Last DP export: 04/01/20 1:17 p Patient Name: DASHA MCFARLAND Page 71233 at 0847 All edits/amendments must be made on the electronic document DICTATION DATE: 04/04/20845 MOP MAKER: JOSE GUADALUPE 04/04/2046 RPT#: [id number] DC DATE:04/01/20 STATUS: DIS IN [facility] [address] [place] [address] END OF REPORT
== END 2020-04-01 15:48 | disposition home health service (06) | DRG 948 ==
LOC: D.ER 08:19 → OBSVTIME 10:36 → D.MS 10:36 → OBSVTIME 11:11 → D.MS 03-29 17:44
PROVIDERS: Family Medicine; General Practice; ADMIT Family Medicine; ATTEND Family Medicine
PROC: 0W9G3ZZ Drainage of Peritoneal Cavity, Percutaneous Approach (ICD-10-PCS; principal; 2020-03-29)
PROC: 0WHG33Z Insertion of Infusion Device into Peritoneal Cavity, Percutaneous Approach (ICD-10-PCS; 2020-03-31)
DX: R18.8 Other ascites (principal); C56.9 Malignant neoplasm of unspecified ovary; K21.9 Gastro-esophageal reflux disease without esophagitis

== ENCOUNTER 2020-04-03 13:42 | Inpatient (IN) | payer MEDICAID ==
[~2020-04-03] VITALS: Ht 167.6 cm; Wt 63.0 kg
[~2020-04-03 13:42] MED LIST changes: +ALDACTONE25 MG PO; +CARAFATE1 G PO
[2020-04-03 14:34] LABS: HEMATOCRIT 32.5 % (36.0-48.0); HEMOGLOBIN 10.7 g/dL (12-16); MCH 28.3 pg (26.0-34.0); MCHC 32.9 g/dL (31.0-37.0); MEAN PLATELET VOLUME 8.5 fL (7.4-10.4); RBC 3.78 10x6/uL (4.00-5.40); RDW 18.2 % (11.5-14.5); WBC 6.3 10x3/uL (4.8-10.8)
[2020-04-03 14:40] LABS: PLATELET COUNT 620 10x3/uL (130-400)
[2020-04-03 14:45] LABS: CALC OSMOLALITY 264 mosm/kg (275-300); CARBON DIOXIDE 29.3 mmol/L (21.0-32.0); CHLORIDE - SERUM 91 mmol/L (98-107); CREATININE - SERUM 0.8 mg/dL (0.6-1.3); GLUCOSE 103 mg/dL (74-106); POTASSIUM - SERUM 3.6 mmol/L (3.5-5.1); SODIUM 131 mmol/L (136-145); UREA NITROGEN 17 mg/dL (7-18); eGFR NON AFRICAN AMERICAN 80 mL/min (90-120)
[2020-04-03 14:52] LABS: ALKALINE PHOSPHATASE 177 U/L (30-120); ALT (SGPT) 24 U/L (10-68); BILIRUBIN - TOTAL 0.38 mg/dL (0.2-1.3); PROTEIN - SERUM 6.6 g/dL (6.4-8.2)
[2020-04-03 15:09] LABS: LYMPHOCYTES 28 % (15-50); MONOCYTES 20 % (2-11); NEUTROPHILS 41 % (40-80); PLATELET ESTIMATE INCREASED
[2020-04-03 16:00] LABS: BILIRUBIN NEGATIVE (NEGATIVE); KETONE MODERATE mg/dL (NEGATIVE); NITRITE NEGATIVE (NEGATIVE); UROBILINOGEN NORMAL mg/dL (< 2)
[2020-04-03 16:01] LABS: WHITE CELLS - URINE 0-5 HPF (0-4)
[2020-04-03 16:02] LABS: AMORPHOUS SEDIMENT MANY LPF (NONE SEEN); BACTERIA FEW HPF (NONE SEEN); EPITHELIAL CELLS 0-5 /hpf (0-5)
[2020-04-03 16:07] LABS: APTT 31.9 SECONDS (22.8-39.4); INR 1.03 (0.85-1.17); PROTIME 13.5 SECONDS (11.6-15.0)
--- NOTE | 2020-04-03 17:13 | NUR ---
PT ADVISED THAT HER NAUSEA WAS BETTER AND ASKED FOR SOME WATER OR ICE, PT WAS INFROMED THAT WE HAD TO WAIT UNTIL THE DR CLEARS HER FOR PO INTAKE
[2020-04-03 18:49] VITALS: BP 108/65
--- NOTE | 2020-04-03 18:55 | NUR ---
BEDSIDE REPORT GIVEN TO CHON LOPEZ
--- NOTE | 2020-04-03 20:04 | NUR ---
PT RESTING IN COMFORT AND SAFETY. PT HAS IVF/ DRIP INFUSING VIA PUMP. PT DENIES NEEDS AT THIS TIME.
[2020-04-03 20:07] VITALS: BP 106/67
--- NOTE | 2020-04-03 22:40 | NUR ---
RECEIVED TO FLOOR FROM ER, ORIENTED TO ROOM, CALL LIGHT IN REACH, BED LOWEST POSITION, DENIES NEEDS, NO S/S OF DISTRESS NOTED
[2020-04-03 23:19] VITALS: BP 113/67; BMI 22.4
[2020-04-04 04:00] VITALS: BP 104/64
[2020-04-04 06:11] LABS: BASOPHILS 0.2 % (0-2); EOSINOPHILS 1.2 % (0-7); HEMATOCRIT 28.8 % (36.0-48.0); HEMOGLOBIN 9.1 g/dL (12-16); IMMATURE GRANULOCYTES 1.3 % (0-5); MCH 27.5 pg (26.0-34.0); MCHC 31.6 g/dL (31.0-37.0); MEAN PLATELET VOLUME 8.5 fL (7.4-10.4); NEUTROPHILS 48.3 % (40-80); PLATELET COUNT 530 10x3/uL (130-400); RBC 3.31 10x6/uL (4.00-5.40); RDW 18.2 % (11.5-14.5); WBC 5.2 10x3/uL (4.8-10.8)
[2020-04-04 06:30] LABS: APTT 28.1 SECONDS (22.8-39.4); INR 1.04 (0.85-1.17); PROTIME 13.5 SECONDS (11.6-15.0)
[2020-04-04 06:41] LABS: ALBUMIN 1.7 g/dL (3.4-5.0); ALKALINE PHOSPHATASE 137 U/L (30-120); ALT (SGPT) 19 U/L (10-68); BILIRUBIN - TOTAL 0.27 mg/dL (0.2-1.3); CALC OSMOLALITY 264 mosm/kg (275-300); CALCIUM 8.1 mg/dL (8.5-10.1); CARBON DIOXIDE 26.1 mmol/L (21.0-32.0); CHLORIDE - SERUM 97 mmol/L (98-107); CREATININE - SERUM 0.6 mg/dL (0.6-1.3); GLUCOSE 87 mg/dL (74-106); POTASSIUM - SERUM 3.1 mmol/L (3.5-5.1); PROTEIN - SERUM 5.5 g/dL (6.4-8.2); SODIUM 133 mmol/L (136-145); eGFR NON AFRICAN AMERICAN > 90 mL/min (90-120)
[2020-04-04 06:46] LABS: UREA NITROGEN 12 mg/dL (7-18)
[2020-04-04 08:13] VITALS: BP 100/61
--- NOTE | 2020-04-04 11:18 | NUR ---
ASSESSMENT PER FLOW SHEET. PATIENT IS WITHOUT DISTRESS.WITHOUT COMPLAINTS OF NAUSEA.STATES SHE IS HUNGRY. SCD ON AND WORKING. IS TO BEDSIDE WITH INSTRUCT.FAMILY AT BEDSIDE
[2020-04-04 12:04] VITALS: BP 99/65
[2020-04-04 13:34] VITALS: Ht 167.6 cm; Wt 63.0 kg
[2020-04-04 16:00] VITALS: BP 100/69
[2020-04-04 20:00] VITALS: BP 108/70
--- NOTE | 2020-04-04 23:14 | NUR ---
REC'D WALKING ROUNDS CHGE.OF SHIFT ASSISTED DRSG CHGE PER REQUEST RIGHT LATERAL MID ABDOMEN.SAMSON WELL CONTINUE TO MONITOR FOR ANY CHGES AND FOLLOW CURRENT PLAN OF CARE.
[2020-04-05 04:00] VITALS: BP 96/69
[2020-04-05 08:58] VITALS: BP 106/69
--- NOTE | 2020-04-05 12:52 | MORECARE ---
CASE MANAGEMENT DISCHARGE SUMMARY PATIENT: DASHA MCFARLAND UNIT: [id number] ADM DATE: 04/03/20 AGE: 50 : 70 SEX: F ROOM/BED: D.2215 AUTHOR: MILLIE MINA PHYSICIAN: REFERRING PHYSICIAN: NGOZI TELLO MD DATE OF SERVICE: 04/05/20 Discharge Plan Patient Name: DASHA MCFARLAND Facility: [facility]:[place] : 1970 Planned Disposition: Anticipated Discharge Date: Discharge Date: Expected LOS: Initial Reviewer: [email or web address] Initial Review Date: 04/03/2020 Generated: 04/05/20 1:52 pm Patient Name: DASHA MCFARLAND Page 27353 at 1252 All edits/amendments must be made on the electronic document DICTATION DATE: 04/05/20 1252 PARKING REGULATION ENFORCEMENT OFFICER: JOSE GUADALUPE 04/05/20 1252 RPT#: [id number] DC DATE: STATUS: ADM IN [facility] [address] [place] [address] END OF REPORT
--- NOTE | 2020-04-05 13:00 | MORECARE ---
CASE MANAGEMENT DISCHARGE SUMMARY PATIENT: DASHA MCFARLAND UNIT: [id number] ADM DATE: 04/03/20 AGE: 50 : 70 SEX: F ROOM/BED: D.2215 AUTHOR: MILLIE MINA PHYSICIAN: REFERRING PHYSICIAN: NGOZI TELLO MD DATE OF SERVICE: 04/05/20 Discharge Plan Patient Name: DASHA MCFARLAND [facility] [facility] 1970 Planned Disposition: Anticipated Discharge Date: Discharge Date: Expected LOS: Initial Reviewer: [email or web address] Initial Review Date: 04/03/2020 Generated: 04/05/20 1:59 pm Comments DCP- Discharge Planning Updated by [id number]: Tameka Hampton on 04/05/20 11:[address] PATIENT IS REQUESTING TO BE TRANSFERED TO [facility], WHERE HER CANCER DR IS TREATING HER. I HAVE STARTED THE REQUEST TO TRANSFER HER TO [facility], FOR A HIGHER LEVEL OF CARE DR CASTILLO WILL DO THE DOC TO [facility] AND I HOPE TO GET AN ACCEPTING MD. SHE IS A PATIENT OF [facility]. CM TO FOLLOW AND ASSIST NEEDED I SPOKE WITH CESARIO WITH [facility] TRANSFER LINE Last DP export: 04/05/20 11:52 a Patient Name: DASHA MCFARLAND Page 76910 at 1300 All edits/amendments must be made on the electronic document DICTATION DATE: 04/05/20 1259 CABINET INSTALLER: JOSE GUADALUPE 04/05/20 1259 RPT#: [id number] DC DATE: STATUS: ADM IN [facility] [address] [place] [address] END OF REPORT
--- NOTE | 2020-04-05 13:19 | MORECARE ---
CASE MANAGEMENT DISCHARGE SUMMARY PATIENT: DASHA MCFARLAND UNIT: [id number] ADM DATE: 04/03/20 AGE: 50 : 70 SEX: F ROOM/BED: D.2215 AUTHOR: MILLIE MINA PHYSICIAN: REFERRING PHYSICIAN: NGOZI TELLO MD DATE OF SERVICE: 04/05/20 Discharge Plan Patient Name: DASHA MCFARLAND Facility: [facility]:[place] : 1970 Planned Disposition: Anticipated Discharge Date: Discharge Date: Expected LOS: Initial Reviewer: [email or web address] Initial Review Date: 04/03/2020 Generated: 04/05/20 2:19 pm Comments DCP- Discharge Planning Updated by [email or web address]: Tameka Hampton on 04/05/20 12:[address] PATIENT WILL BE TRANSFERING TO [facility] FOR HIGHER LEVEL OF CARE DR CASTILLO SPOKE WITH JAELYN WESTON APN AND THE ACCEPTING MD IS DR MATHIAS. SHE WILL TAKE A DISC WITH HER AND WILL BE TRANSFERED VIA EMS DCP- Discharge Planning Updated by [email or web address]: Tameka Hampton on 04/05/20 11:[address] PATIENT IS REQUESTING TO BE TRANSFERED TO [facility], WHERE HER CANCER DR IS TREATING HER. I HAVE STARTED THE REQUEST TO TRANSFER HER TO [facility], FOR A HIGHER LEVEL OF CARE DR CASTILLO WILL DO THE DOC TO DOC AND I HOPE TO GET AN ACCEPTING MD. SHE IS A PATIENT OF [facility]. CM TO FOLLOW AND ASSIST NEEDED I SPOKE WITH CESARIO WITH [facility] TRANSFER LINE Last DP export: 04/05/20 12:00 p Patient Name: DASHA MCFARLAND Page [phone] at 1319 All edits/amendments must be made on the electronic document DICTATION DATE: 04/05/20 1319 QUANTITATIVE MANAGER: JOSE GUADALUPE 04/05/20 1319 RPT#: [id number] DC DATE: STATUS: ADM IN [facility] [address] [place] [address] END OF REPORT
[2020-04-05 18:09] VITALS: BP 105/71
[2020-04-05 20:00] VITALS: BP 92/64
[2020-04-06 06:11] LABS: BASOPHILS 0.2 % (0-2); EOSINOPHILS 0.6 % (0-7); HEMATOCRIT 31.8 % (36.0-48.0); HEMOGLOBIN 9.9 g/dL (12-16); IMMATURE GRANULOCYTES 0.9 % (0-5); LYMPHOCYTES 9.6 % (15-50); MCH 27.5 pg (26.0-34.0); MCHC 31.1 g/dL (31.0-37.0); MCV 88.3 fL (80.0-100.0); MEAN PLATELET VOLUME 8.4 fL (7.4-10.4); MONOCYTES 13.2 % (2-11); NEUTROPHILS 75.5 % (40-80); PLATELET COUNT 536 10x3/uL (130-400); RDW 18.6 % (11.5-14.5)
[2020-04-06 06:20] LABS: WBC 8.8 10x3/uL (4.8-10.8)
[2020-04-06 06:41] LABS: ALBUMIN 1.6 g/dL (3.4-5.0); ALKALINE PHOSPHATASE 166 U/L (30-120); ALT (SGPT) 29 U/L (10-68); CALC OSMOLALITY 265 mosm/kg (275-300); CARBON DIOXIDE 22.7 mmol/L (21.0-32.0); CHLORIDE - SERUM 101 mmol/L (98-107); CREATININE - SERUM 0.6 mg/dL (0.6-1.3); GLUCOSE 92 mg/dL (74-106); POTASSIUM - SERUM 3.7 mmol/L (3.5-5.1); PROTEIN - SERUM 5.3 g/dL (6.4-8.2); SODIUM 134 mmol/L (136-145); UREA NITROGEN 6 mg/dL (7-18); eGFR NON AFRICAN AMERICAN > 90 mL/min (90-120)
[2020-04-06 09:21] VITALS: BP 92/60
--- NOTE | 2020-04-06 10:16 | MORECARE ---
CASE MANAGEMENT DISCHARGE SUMMARY PATIENT: DASHA MCFARLAND UNIT: [id number] ADM DATE: 04/03/20 AGE: 50 : 70 SEX: F ROOM/BED: D.2215 AUTHOR: MILLIE MINA PHYSICIAN: REFERRING PHYSICIAN: NGOZI TELLO MD DATE OF SERVICE: 04/06/20 Discharge Plan Patient Name: DASHA MCFARLAND Facility: [facility]:[place] : 1970 Planned Disposition: Anticipated Discharge Date: Discharge Date: Expected LOS: Initial Reviewer: [id number] Initial Review Date: 04/03/2020 Generated: 04/06/20 11:15 am Comments DCP- Discharge Planning Updated by [email or web address]: Tameka Hampton on 04/06/20 9:[address] CALLED [facility] TO CHECK THE STATUS OF HER TRANSFER SHE IS STILL WAITING ON A BED PER [facility] DCP- Discharge Planning Updated by [email or web address]: Tameka Hampton on 04/05/20 12:[address] PATIENT WILL BE TRANSFERING TO [facility] FOR HIGHER LEVEL OF CARE DR CASTILLO SPOKE WITH JAELYN WESTON APN AND THE ACCEPTING MD IS DR MATHIAS. SHE WILL TAKE A DISC WITH HER AND WILL BE TRANSFERED VIA EMS DCP- Discharge Planning Updated by [email or web address]: Tameka Hampton on 04/05/20 11:[address] PATIENT IS REQUESTING TO BE TRANSFERED TO [facility], WHERE HER CANCER DR IS TREATING HER. I HAVE STARTED THE REQUEST TO TRANSFER HER TO [facility], FOR A HIGHER LEVEL OF CARE DR CASTILLO WILL DO THE DOC TO [facility] AND I HOPE TO GET AN ACCEPTING MD. SHE IS A PATIENT OF [facility]. CM TO FOLLOW AND ASSIST NEEDED I SPOKE WITH CESARIO WITH [facility] TRANSFER LINE Last DP export: 04/05/20 12:19 p Patient Name: DASHA MCFARLAND Page 92829 at 1016 All edits/amendments must be made on the electronic document DICTATION DATE: 04/06/20 1015 MARINE ELECTRONICS TECHNICIAN: JOSE GUADALUPE 04/06/20 1015 RPT#: [id number] DC DATE: STATUS: ADM IN [facility] [address] [place] [address] END OF REPORT
--- NOTE | 2020-04-06 10:31 | NUR ---
ASSESSMENT COMPLETED PER FLOW SHEET. RESTING AFTER PAIN MEDS ORDERED.MONITOR FOR NEEDS.
--- NOTE | 2020-04-06 12:36 | MORECARE ---
CASE MANAGEMENT DISCHARGE SUMMARY PATIENT: DASHA MCFARLAND UNIT: [id number] ADM DATE: 04/03/20 AGE: 50 : 70 SEX: F ROOM/BED: D.2215 AUTHOR: MILLIE MINA PHYSICIAN: REFERRING PHYSICIAN: NGOZI TELLO MD DATE OF SERVICE: 04/06/20 Discharge Plan Patient Name: DASHA MCFARLAND Facility: [facility]:[place] : 1970 Planned Disposition: Home with Home Health Anticipated Discharge Date: Discharge Date: Expected LOS: Initial Reviewer: [email or web address] Initial Review Date: 04/03/2020 Generated: 04/06/20 1:35 pm Comments DCP- Discharge Planning Updated by [email or web address]: Tameka Hampton on 04/06/20 9:[address] CALLED [facility] TO CHECK THE STATUS OF HER TRANSFER SHE IS STILL WAITING ON A BED PER [facility] DCP- Discharge Planning Updated by [email or web address]: Tameka Hampton on 04/05/20 12:[address] PATIENT WILL BE TRANSFERING TO [facility] FOR HIGHER LEVEL OF CARE DR CASTILLO SPOKE WITH JAELYN WESTON APN AND THE ACCEPTING MD IS DR MATHIAS. SHE WILL TAKE A DISC WITH HER AND WILL BE TRANSFERED VIA EMS DCP- Discharge Planning Updated by [email or web address]: Tameka Hampton on 04/05/20 11:[address] PATIENT IS REQUESTING TO BE TRANSFERED TO [facility], WHERE HER CANCER DR IS TREATING HER. I HAVE STARTED THE REQUEST TO TRANSFER HER TO [facility], FOR A HIGHER LEVEL OF CARE DR CASTILLO WILL DO THE DOC TO [facility] AND I HOPE TO GET AN ACCEPTING MD. SHE IS A PATIENT OF [facility]. CM TO FOLLOW AND ASSIST NEEDED I SPOKE WITH CESARIO WITH [facility] TRANSFER LINE Last DP export: 04/06/20 9:15 a Patient Name: DASHA MCFARLAND Page 08770 at 1236 All edits/amendments must be made on the electronic document DICTATION DATE: 04/06/20 1235 VENUE MANAGER: JOSE GUADALUPE 04/06/20 1235 RPT#: [id number] DC DATE: STATUS: ADM IN [facility] [address] [place] [address] END OF REPORT
[2020-04-06 12:38] VITALS: BP 102/70
--- NOTE | 2020-04-06 12:54 | MORECARE ---
CASE MANAGEMENT DISCHARGE SUMMARY PATIENT: DASHA MCFARLAND UNIT: [id number] ADM DATE: 04/03/20 AGE: 50 : 70 SEX: F ROOM/BED: D.2215 AUTHOR: MILLIE MINA PHYSICIAN: REFERRING PHYSICIAN: NGOZI TELLO MD DATE OF SERVICE: 04/06/20 Discharge Plan Patient Name: DASHA MCFARLAND Facility: [facility]:[place] : 1970 Planned Disposition: Home with Home Health Anticipated Discharge Date: Discharge Date: Expected LOS: Initial Reviewer: [email or web address] Initial Review Date: 04/03/2020 Generated: 04/06/20 1:54 pm Comments DCP- Discharge Planning Updated by [email or web address]: Tameka Hampton on 04/06/20 9:[address] CALLED [facility] TO CHECK THE STATUS OF HER TRANSFER SHE IS STILL WAITING ON A BED PER [facility] DCP- Discharge Planning Updated by [id number]: Tameka Hampton on 04/05/20 12:[address] PATIENT WILL BE TRANSFERING TO [facility] FOR HIGHER LEVEL OF CARE DR CASTILLO SPOKE WITH JAELYN WESTON APN AND THE ACCEPTING MD IS DR MATHIAS. SHE WILL TAKE A DISC WITH HER AND WILL BE TRANSFERED VIA EMS DCP- Discharge Planning Updated by [id number]: Tameka Hampton on 04/05/20 11:[address] PATIENT IS REQUESTING TO BE TRANSFERED TO [facility], WHERE HER CANCER DR IS TREATING HER. I HAVE STARTED THE REQUEST TO TRANSFER HER TO [facility], FOR A HIGHER LEVEL OF CARE DR CASTILLO WILL DO THE DOC TO DOC AND I HOPE TO GET AN ACCEPTING MD. SHE IS A PATIENT OF [facility]. CM TO FOLLOW AND ASSIST NEEDED I SPOKE WITH CESARIO WITH [facility] TRANSFER LINE DCPIA - Discharge Planning Initial Assessment Updated by [email or web address]: Tameka Hampton on 04/06/20 12:47 pm * Is the patient Alert and Oriented? Yes * [facility]CP [facility] * [facility] * Preadmission Environment Home with Family * ADLs Independent * Equipment Other * Other Equipment pleurix catheter supplies adjustable bed * List name and contact numbers for known caregivers / representatives who currently or will assist patient after discharge: ANDREAS PEARSON (MOTHER) [phone] * Verbal permission to speak to the caregivers and representatives has been obtained from the patient. N/A * Community resources currently utilized Home Health * Please name any agencies selected above. [facility] * Additional services required to return to the preadmission environment? Yes * Can the patient safely return to the preadmission environment? Yes * Has this patient been hospitalized within the prior 30 days at any hospital? Yes Last DP export: 04/06/20 11:36 a Patient Name: DASHA MCFARLAND Page 18768 at 1254 All edits/amendments must be made on the electronic document DICTATION DATE: 04/06/20 1254 CHEMICAL PLANT OPERATOR SUPERVISOR: JOSE GUADALUPE 04/06/20 1254 RPT#: [id number] DC DATE: STATUS: ADM IN [facility] [address] [place] [address] END OF REPORT
--- NOTE | 2020-04-06 13:03 | MORECARE ---
CASE MANAGEMENT DISCHARGE SUMMARY PATIENT: DASHA MCFARLAND UNIT: [id number] ADM DATE: 04/03/20 AGE: 50 : 70 SEX: F ROOM/BED: D.2847 AUTHOR: MILLIE MINA PHYSICIAN: REFERRING PHYSICIAN: NGOZI TELLO MD DATE OF SERVICE: 04/06/20 Discharge Plan Patient Name: DASHA MCFARLAND Facility: [facility]:[place] : 1970 Planned Disposition: Home with Home Health Anticipated Discharge Date: Discharge Date: Expected LOS: Initial Reviewer: [id number] Initial Review Date: 04/03/2020 Generated: 04/06/20 2:03 pm Comments DCP- Discharge Planning Updated by [id number]: Tameka Hampton on 04/06/20 11:[address] Patient Name: DASHA MCFARLAND Admission Status: ER Accout number: [id number] Admission Date: 04-03-2020 : 1970 Admission Diagnosis:UNSPECIFIED ABDOMINAL PAIN Attending: OMER, Current LOS: 3 Anticipated DC Date: Planned Disposition: Home with Home Health Primary Insurance: MEDICAID [place] Discharge Planning Comments: CM met with patient to complete initial dc planning assessment. CM educated patient on the CM role and verbal consent given by patient to complete assessment. Patient was staying with her mother so she could help her with her care. She was just discharged on 04/01/20 with [facility] . IR had set up and taught the patient and the mother how to drain her pleurx catheter & IR set up her supplies to be delivered to her home. At this time she is on a list to transfer to [facility], for a higher level of care. She is waiting on a bed. Patient denied known discharge needs at this time. CM will continue to follow and will assist as needed with dc plans/needs. Ball Ender: Tameka Hampton DCP- Discharge Planning Updated by [email or web address]: Tameka Hampton on 04/06/20 9:[address] CALLED [facility] TO CHECK THE STATUS OF HER TRANSFER SHE IS STILL WAITING ON A BED PER [facility] DCP- Discharge Planning Updated by [id number]: Tameka Hampton on 04/05/20 12:[address] PATIENT WILL BE TRANSFERING TO [facility] FOR HIGHER LEVEL OF CARE DR CASTILLO SPOKE WITH JAELYN WESTON APN AND THE ACCEPTING MD IS DR MATHIAS. SHE WILL TAKE A DISC WITH HER AND WILL BE TRANSFERED VIA EMS DCP- Discharge Planning Updated by [email or web address]: Tameka Hmapton on 04/05/20 11:[address] PATIENT IS REQUESTING TO BE TRANSFERED TO [facility], WHERE HER CANCER DR IS TREATING HER. I HAVE STARTED THE REQUEST TO TRANSFER HER TO [facility], FOR A HIGHER LEVEL OF CARE DR CASTILLO WILL DO THE DOC TO DOC AND I HOPE TO GET AN ACCEPTING MD. SHE IS A PATIENT OF [facility]. CM TO FOLLOW AND ASSIST NEEDED I SPOKE WITH CESARIO WITH [facility] TRANSFER LINE DCPIA - Discharge Planning Initial Assessment Updated by [email or web address]: Tameka Hampton on 04/06/20 12:47 pm * Is the patient Alert and Oriented? Yes * [facility]CP [facility] * [facility] * Preadmission Environment Home with Family * ADLs Independent * Equipment Other * Other Equipment pleurix catheter supplies adjustable bed * List name and contact numbers for known caregivers / representatives who currently or will assist patient after discharge: ANDREAS PEARSON (MOTHER) [phone] * Verbal permission to speak to the caregivers and representatives has been obtained from the patient. N/A * Community resources currently utilized Home Health * Please name any agencies selected above. [facility] * Additional services required to return to the preadmission environment? Yes * Can the patient safely return to the preadmission environment? Yes * Has this patient been hospitalized within the prior 30 days at any hospital? Yes Last DP export: 04/06/20 11:54 a Patient Name: DASHA MCFARLAND Page [id number] Electronically Signed by [facility] CITYValeriy on 04/06/20 at 1303 All edits/amendments must be made on the electronic document DICTATION DATE: 04/06/20 1303 TAX SERVICES MANAGER: JOSE GUADALUPE 04/06/20 1303 RPT#: [id number] DC DATE: STATUS: ADM IN [facility] [address] [place] [address] END OF REPORT
[2020-04-06 17:46] VITALS: BP 102/61
[2020-04-07] VITALS: BP 159/66
[2020-04-07 00:21] VITALS: BP 102/65
[2020-04-07 04:00] VITALS: BP 92/61
--- NOTE | 2020-04-07 05:55 | NUR ---
I have reviewed this patient and I concur with the Shift Assessment completed by the Licensed Practical Nurse today this shift.
[2020-04-07 07:10] LABS: HEMATOCRIT 30.5 % (36.0-48.0); HEMOGLOBIN 9.5 g/dL (12-16); MCH 27.4 pg (26.0-34.0); MCHC 31.1 g/dL (31.0-37.0); MCV 87.9 fL (80.0-100.0); MEAN PLATELET VOLUME 8.5 fL (7.4-10.4); PLATELET COUNT 510 10x3/uL (130-400); RBC 3.47 10x6/uL (4.00-5.40); RDW 18.9 % (11.5-14.5)
[2020-04-07 07:18] LABS: ALBUMIN 1.4 g/dL (3.4-5.0); ALKALINE PHOSPHATASE 149 U/L (30-120); ALT (SGPT) 28 U/L (10-68); BILIRUBIN - TOTAL 0.26 mg/dL (0.2-1.3); CALC OSMOLALITY 265 mosm/kg (275-300); CALCIUM 7.8 mg/dL (8.5-10.1); CHLORIDE - SERUM 101 mmol/L (98-107); CREATININE - SERUM 0.5 mg/dL (0.6-1.3); GLUCOSE 91 mg/dL (74-106); POTASSIUM - SERUM 3.3 mmol/L (3.5-5.1); SODIUM 134 mmol/L (136-145); UREA NITROGEN 7 mg/dL (7-18); eGFR NON AFRICAN AMERICAN > 90 mL/min (90-120)
[2020-04-07 09:02] VITALS: BP 94/58
[2020-04-07 11:46] LABS: ANISOCYTOSIS OCC; LYMPHOCYTES 10 % (15-50); MONOCYTES 15 % (2-11); NEUTROPHILS 74 % (40-80); PLATELET ESTIMATE INCREASED
[2020-04-07 11:51] VITALS: BP 94/56
--- NOTE | 2020-04-07 13:49 | MORECARE ---
CASE MANAGEMENT DISCHARGE SUMMARY PATIENT: DASHA MCFARLAND UNIT: [id number] ADM DATE: 04/03/20 AGE: 50 : 70 SEX: F ROOM/BED: D.2215 AUTHOR: MILLIE MINA PHYSICIAN: REFERRING PHYSICIAN: NGOZI TELLO MD DATE OF SERVICE: 04/07/20 Discharge Plan Patient Name: DASHA MCFARLAND Facility: [facility]:[place] : 1970 Planned Disposition: Home with Home Health Anticipated Discharge Date: Discharge Date: Expected LOS: Initial Reviewer: [email or web address] Initial Review Date: 04/03/2020 Generated: 04/07/20 2:48 pm Comments DCP- Discharge Planning Updated by [email or web address]: Tameka Hampton on 04/07/20 12:[address] PATIENT HAS BEEN ACCEPTED TO [facility] AND HAS A BED, ROOM NUMBER [id number] DCP- Discharge Planning Updated by [id number]: Tameka Hampton on 04/06/20 11:[address] Patient Name: DASHA MCFARLAND Admission Status: ER Accout number: [id number] Admission Date: 04-03-2020 : 1970 Admission Diagnosis:UNSPECIFIED ABDOMINAL PAIN Attending: OMER, Current LOS: 3 Anticipated DC Date: Planned Disposition: Home with Home Health Primary Insurance: MEDICAID [place] Discharge Planning Comments: CM met with patient to complete initial dc planning assessment. CM educated patient on the CM role and verbal consent given by patient to complete assessment. Patient was staying with her mother so she could help her with her care. She was just discharged on 04/01/20 with [facility] . IR had set up and taught the patient and the mother how to drain her pleurx catheter & IR set up her supplies to be delivered to her home. At this time she is on a list to transfer to [facility], for a higher level of care. She is waiting on a bed. Patient denied known discharge needs at this time. CM will continue to follow and will assist as needed with dc plans/needs. Starting Sheet Tank Operator: Tameka Hampton DCP- Discharge Planning Updated by [email or web address]: Tameka Hampton on 04/06/20 9:[address]ED [facility] TO CHECK THE STATUS OF HER TRANSFER SHE IS STILL WAITING ON A BED PER [facility] DCP- Discharge Planning Updated by [id number]: Tameka Hampton on 04/05/20 12:[address] PATIENT WILL BE TRANSFERING TO [facility] FOR HIGHER LEVEL OF CARE DR CASTILLO SPOKE WITH JAELYN WESTON APN AND THE ACCEPTING MD IS DR MATHIAS. SHE WILL TAKE A DISC WITH HER AND WILL BE TRANSFERED VIA EMS DCP- Discharge Planning Updated by [email or web address]: Tameka Hampton on 04/05/20 11:[address] PATIENT IS REQUESTING TO BE TRANSFERED TO [facility], WHERE HER CANCER DR IS TREATING HER. I HAVE STARTED THE REQUEST TO TRANSFER HER TO [facility], FOR A HIGHER LEVEL OF CARE DR CASTILLO WILL DO THE DOC TO DOC AND I HOPE TO GET AN ACCEPTING MD. SHE IS A PATIENT OF [facility]. CM TO FOLLOW AND ASSIST NEEDED I SPOKE WITH CESARIO WITH [facility] TRANSFER LINE DCPIA - Discharge Planning Initial Assessment Updated by [id number]: Tameka Hampton on 04/06/20 12:47 pm * Is the patient Alert and Oriented? Yes * [facility]CP [facility] * [facility] * Preadmission Environment Home with Family * ADLs Independent * Equipment Other * Other Equipment pleurix catheter supplies adjustable bed * List name and contact numbers for known caregivers / representatives who currently or will assist patient after discharge: ANDREAS PEARSON (MOTHER) [phone] * Verbal permission to speak to the caregivers and representatives has been obtained from the patient. N/A * Community resources currently utilized Home Health * Please name any agencies selected above. [facility] * Additional services required to return to the preadmission environment? Yes * Can the patient safely return to the preadmission environment? Yes * Has this patient been hospitalized within the prior 30 days at any hospital? Yes Last DP export: 04/06/20 12:03 p Patient Name: DASHA MCFARLAND Page 25978 at 1349 All edits/amendments must be made on the electronic document DICTATION DATE: 04/07/201347 EQUINE VET: JOSE GUADALUPE 04/07/201347 RPT#: [id number] DC DATE: STATUS: ADM IN [facility] [address] [place] [address] END OF REPORT
--- NOTE | 2020-04-07 14:44 | NUR ---
0700 BEDSIDE REPORT RECEIVED ASSESSMENT COMPLETE
--- NOTE | 2020-04-07 14:45 | NUR ---
1208 MORPHINE 4 MG GIVEN IV FPR PAIN 03/17
--- NOTE | 2020-04-07 14:45 | NUR ---
1232 ONE TIME DOSE PHENERGAN 25MG IV GIVEN FOR NAUSEA
--- NOTE | 2020-04-07 14:46 | NUR ---
1300 REPORT CALLED TO HAILEY DANIELS RN AT [facility]
--- NOTE | 2020-04-08 09:23 | MORECARE ---
CASE MANAGEMENT DISCHARGE SUMMARY PATIENT: DASHA MCFARLAND UNIT: [id number] ADM DATE: 04/03/20 AGE: 50 : 70 SEX: F ROOM/BED: D.2215 AUTHOR: KEELEYDOC PHYSICIAN: REFERRING PHYSICIAN: NGOZI TELLO MD DATE OF SERVICE: 04/08/20 Discharge Plan Patient Name: DASHA MCFARLAND Facility: [facility]:[place] : 1970 Planned Disposition: Home with Home Health Anticipated Discharge Date: Discharge Date: 04/07/2020 Expected LOS: Initial Reviewer: [email or web address] Initial Review Date: 04/03/2020 Generated: 04/08/20 10:22 am Comments DCP- Discharge Planning Updated by [id number]: Tameka Hampton on 04/07/20 12:[address] PATIENT HAS BEEN ACCEPTED TO [facility] AND HAS A BED, ROOM NUMBER -[id number] DCP- Discharge Planning Updated by [email or web address]: Tameka Hampton on 04/06/20 11:[address] Patient Name: DASHA MCFARLAND Admission Status: ER Accout number: [id number] Admission Date: 04-03-2020 : 1970 Admission Diagnosis:UNSPECIFIED ABDOMINAL PAIN Attending: OMER, Current LOS: 3 Anticipated DC Date: Planned Disposition: Home with Home Health Primary Insurance: MEDICAID [place] Discharge Planning Comments: CM met with patient to complete initial dc planning assessment. CM educated patient on the CM role and verbal consent given by patient to complete assessment. Patient was staying with her mother so she could help her with her care. She was just discharged on 04/01/20 with [facility] . IR had set up and taught the patient and the mother how to drain her pleurx catheter & IR set up her supplies to be delivered to her home. At this time she is on a list to transfer to [facility], for a higher level of care. She is waiting on a bed. Patient denied known discharge needs at this time. CM will continue to follow and will assist as needed with dc plans/needs. Senior Accountant Analyst: Tameka Hampton DCP- Discharge Planning Updated by [email or web address]: Tameka Hampton on 04/06/20 9:[address] CALLED [facility] TO CHECK THE STATUS OF HER TRANSFER SHE IS STILL WAITING ON A BED PER [facility] DCP- Discharge Planning Updated by [email or web address]: Tameka Hampton on 04/05/20 12:[address] PATIENT WILL BE TRANSFERING TO [facility] FOR HIGHER LEVEL OF CARE DR CASTILLO SPOKE WITH JAELYN WESTON APN AND THE ACCEPTING MD IS DR MATHIAS. SHE WILL TAKE A DISC WITH HER AND WILL BE TRANSFERED VIA EMS DCP- Discharge Planning Updated by [email or web address]: Tameka Hampton on 04/05/20 11:[address] PATIENT IS REQUESTING TO BE TRANSFERED TO [facility], WHERE HER CANCER DR IS TREATING HER. I HAVE STARTED THE REQUEST TO TRANSFER HER TO [facility], FOR A HIGHER LEVEL OF CARE DR CASTILLO WILL DO THE DOC TO DOC AND I HOPE TO GET AN ACCEPTING MD. SHE IS A PATIENT OF [facility]. CM TO FOLLOW AND ASSIST NEEDED I SPOKE WITH CESARIO WITH [facility] TRANSFER LINE DCPIA - Discharge Planning Initial Assessment Updated by [email or web address]: Tameka Hapmton on 04/06/20 12:47 pm * Is the patient Alert and Oriented? Yes * PCP [facility] * Pharmacy [facility] * Preadmission Environment Home with Family * ADLs Independent * Equipment Other * Other Equipment pleurix catheter supplies adjustable bed * List name and contact numbers for known caregivers / representatives who currently or will assist patient after discharge: ANDREAS PEARSON (MOTHER) [phone] * Verbal permission to speak to the caregivers and representatives has been obtained from the patient. N/A * Community resources currently utilized Home Health * Please name any agencies selected above. [facility] * Additional services required to return to the preadmission environment? Yes * Can the patient safely return to the preadmission environment? Yes * Has this patient been hospitalized within the prior 30 days at any hospital? Yes Last DP export: 04/07/20 12:49 p Patient Name: DASHA MCFARLAND Page [id number] at 0923 All edits/amendments must be made on the electronic document DICTATION DATE: 04/08/20921 DISTANCE LEARNING COORDINATOR: JOSE GUADALUPE 04/08/20921 RPT#: [id number] DC DATE:10/01/20 STATUS: DIS IN [facility] [address] [facility] [place] [address] END OF REPORT
== END 2020-04-07 15:35 | disposition short-term general hospital (02) | DRG 375 ==
LOC: D.ER 13:42 → D.MS 21:45
PROVIDERS: Family Medicine; Family Medicine Adult Medicine; ADMIT Family Medicine; ATTEND Family Medicine
DX: C78.6 Secondary malignant neoplasm of retroperitoneum and peritoneum (principal); R18.0 Malignant ascites; E87.1 Hypo-osmolality and hyponatremia; C56.9 Malignant neoplasm of unspecified ovary; E87.6 Hypokalemia; E86.0 Dehydration; R11.2 Nausea with vomiting, unspecified; D64.9 Anemia, unspecified; Z72.0 Tobacco use

== ENCOUNTER → 2020-09-15 11:31 | Outpatient (CLI) | payer MEDICAID ==
[2020-07-22 17:35] VITALS: BMI 16.6
[~2020-09-15 11:31] MED LIST changes: +AZITHROMYCIN500 MG PO
[2020-09-15 11:51] LABS: BASOPHILS 0.4 % (0-2); HEMATOCRIT 35.6 % (36.0-48.0); HEMOGLOBIN 11.7 g/dL (12-16); IMMATURE GRANULOCYTES 0.1 % (0-5); LYMPHOCYTE ABS# 1.31 10x3/uL (1.18-3.74); LYMPHOCYTES 18.9 % (15-50); MCH 31.3 pg (26.0-34.0); MCHC 32.9 g/dL (31.0-37.0); MCV 95.2 fL (80.0-100.0); MEAN PLATELET VOLUME 8.9 fL (7.4-10.4); MONOCYTES 7.1 % (2-11); NEUTROPHIL ABS# 4.95 10x3/uL (1.56-6.13); NEUTROPHILS 71.5 % (40-80); PLATELET COUNT 387 10x3/uL (130-400); RBC 3.74 10x6/uL (4.00-5.40); RDW 14.6 % (11.5-14.5); WBC 6.9 10x3/uL (4.8-10.8)
[2020-09-15 12:05] LABS: ALKALINE PHOSPHATASE 110 U/L (30-120); ALT (SGPT) 14 U/L (10-68); BILIRUBIN - TOTAL 0.28 mg/dL (0.2-1.3); CALC OSMOLALITY 278 mosm/kg (275-300); CALCIUM 8.9 mg/dL (8.5-10.1); CARBON DIOXIDE 29.5 mmol/L (21.0-32.0); CHLORIDE - SERUM 105 mmol/L (98-107); CREATININE - SERUM 0.7 mg/dL (0.6-1.3); POTASSIUM - SERUM 4.1 mmol/L (3.5-5.1); PROTEIN - SERUM 6.6 g/dL (6.4-8.2); SODIUM 141 mmol/L (136-145); UREA NITROGEN 12 mg/dL (7-18); eGFR NON AFRICAN AMERICAN > 90 mL/min (90-120)
[2020-09-15 12:06] LABS: GLUCOSE 70 mg/dL (74-106)
== END | disposition home or self-care (01) ==
LOC: D.LABREF 11:31
PROVIDERS: ATTEND Emergency Medicine
DX: C56.1 Malignant neoplasm of right ovary (principal); C56.2 Malignant neoplasm of left ovary; E43 Unspecified severe protein-calorie malnutrition; Z15.01 Genetic susceptibility to malignant neoplasm of breast

== ENCOUNTER → 2020-09-22 11:26 | Outpatient (CLI) | payer MEDICAID ==
[2020-07-22 17:35] VITALS: BMI 16.6
[2020-09-22 11:39] LABS: BASOPHILS 0.3 % (0-2); EOSINOPHILS 2.4 % (0-7); HEMATOCRIT 36.2 % (36.0-48.0); HEMOGLOBIN 11.6 g/dL (12-16); IMMATURE GRANULOCYTES 0.2 % (0-5); LYMPHOCYTE ABS# 1.38 10x3/uL (1.18-3.74); LYMPHOCYTES 22.4 % (15-50); MCH 30.2 pg (26.0-34.0); MCV 94.3 fL (80.0-100.0); MEAN PLATELET VOLUME 8.9 fL (7.4-10.4); MONOCYTES 11.9 % (2-11); NEUTROPHIL ABS# 3.87 10x3/uL (1.56-6.13); NEUTROPHILS 62.8 % (40-80); PLATELET COUNT 440 10x3/uL (130-400); RBC 3.84 10x6/uL (4.00-5.40); RDW 14.4 % (11.5-14.5); WBC 6.2 10x3/uL (4.8-10.8)
[2020-09-22 11:52] LABS: ALBUMIN 2.8 g/dL (3.4-5.0); ALKALINE PHOSPHATASE 105 U/L (30-120); ALT (SGPT) 15 U/L (10-68); BILIRUBIN - TOTAL 0.37 mg/dL (0.2-1.3); CALC OSMOLALITY 276 mosm/kg (275-300); CALCIUM 8.8 mg/dL (8.5-10.1); CARBON DIOXIDE 28.5 mmol/L (21.0-32.0); CHLORIDE - SERUM 104 mmol/L (98-107); CREATININE - SERUM 0.6 mg/dL (0.6-1.3); GLUCOSE 89 mg/dL (74-106); POTASSIUM - SERUM 4.5 mmol/L (3.5-5.1); PROTEIN - SERUM 6.4 g/dL (6.4-8.2); SODIUM 140 mmol/L (136-145); UREA NITROGEN 11 mg/dL (7-18); eGFR NON AFRICAN AMERICAN > 90 mL/min (90-120)
== END | disposition home or self-care (01) ==
LOC: D.LABREF 11:26
PROVIDERS: ATTEND Internal Medicine Hematology & Oncology
DX: C56.1 Malignant neoplasm of right ovary (principal); E43 Unspecified severe protein-calorie malnutrition; C56.2 Malignant neoplasm of left ovary; Z15.01 Genetic susceptibility to malignant neoplasm of breast

== ENCOUNTER → 2020-09-29 11:46 | Outpatient (CLI) | payer MEDICAID ==
[2020-07-22 17:35] VITALS: BMI 16.6
[2020-09-29 13:22] LABS: BASOPHILS 0.1 % (0-2); EOSINOPHILS 0.1 % (0-7); HEMATOCRIT 31.5 % (36.0-48.0); HEMOGLOBIN 10.4 g/dL (12-16); IMMATURE GRANULOCYTES 0.1 % (0-5); LYMPHOCYTE ABS# 1.28 10x3/uL (1.18-3.74); LYMPHOCYTES 12.7 % (15-50); MCH 30.8 pg (26.0-34.0); MCV 93.2 fL (80.0-100.0); MEAN PLATELET VOLUME 8.9 fL (7.4-10.4); MONOCYTES 10.1 % (2-11); NEUTROPHIL ABS# 7.78 10x3/uL (1.56-6.13); NEUTROPHILS 76.9 % (40-80); PLATELET COUNT 485 10x3/uL (130-400); RBC 3.38 10x6/uL (4.00-5.40); WBC 10.1 10x3/uL (4.8-10.8)
[2020-09-29 13:28] LABS: ALBUMIN 2.3 g/dL (3.4-5.0); ALKALINE PHOSPHATASE 98 U/L (30-120); ALT (SGPT) 18 U/L (10-68); BILIRUBIN - TOTAL 0.15 mg/dL (0.2-1.3); CALC OSMOLALITY 278 mosm/kg (275-300); CALCIUM 8.5 mg/dL (8.5-10.1); CARBON DIOXIDE 28.3 mmol/L (21.0-32.0); CHLORIDE - SERUM 100 mmol/L (98-107); CREATININE - SERUM 0.7 mg/dL (0.6-1.3); GLUCOSE 98 mg/dL (74-106); POTASSIUM - SERUM 4.1 mmol/L (3.5-5.1); PROTEIN - SERUM 6.2 g/dL (6.4-8.2); SODIUM 139 mmol/L (136-145); UREA NITROGEN 16 mg/dL (7-18); eGFR NON AFRICAN AMERICAN > 90 mL/min (90-120)
== END | disposition home or self-care (01) ==
LOC: D.LABREF 11:46
PROVIDERS: ATTEND Internal Medicine Hematology & Oncology
DX: C56.1 Malignant neoplasm of right ovary (principal); C56.2 Malignant neoplasm of left ovary; E43 Unspecified severe protein-calorie malnutrition; Z15.01 Genetic susceptibility to malignant neoplasm of breast

== ENCOUNTER 2020-10-15 20:18 | Inpatient (IN) | payer MEDICAID ==
[~2020-10-15] VITALS: Ht 167.6 cm; Wt 51.7 kg
--- NOTE | ~2020-10-15 | HEMODYNAMI ---
PATIENT:DAHSA MCFARLAND MEDICAL RECORD: [id number] : [birth year] LOCATION:[facility] D.2222 ADMISSION DATE: 10/15/20 Generatedon:19:31 Patient name: DASHA MCFARLAND Patient #: [id number] SSN: : 1970 Date of study: 10/17/2020 Page: Of Hemodynamic Procedure Report Patient Data Patient Demographics First Name: DASHA Gender: Female Last Name: BARTOLO : 1970 Middle Initial: A Age: 50 year(s) Patient #: [id number] Race: Unknown Additional ID: [id number] Contact details Address: [address] [place] [address] State: [place] City: [place] Zip code: [address] Past Medical History Allergies Allergen Reaction Date Comments Reported Penicillins 03/31/2020 Penicillins 10/17/2020 Admission Admission Data Admission Date: 10/15/2020 Admission Time: 23:53 Room #: .2222 Height (in.): 66 BSA: 1.58 (m2) Height (cm.): 167.64 BMI: 18.4 (kg/m2) Weight (lbs.): 114 Weight (kg.): 51.71 Procedure Procedure Types Cath Procedure Peripheral Cath Diagnostic Procedure Miscellaneous Cathetergram Procedure Description Procedure Date Procedure Date: 10/17/2020 Procedure Start Time: 9:23 Procedure Staff Name Function Nimesh Bang MD Performing Physician Brandi Hayward RT Body Liner Doris De Leon RN Nurse Rickie Zapien RT Scrub Procedure Data Cath Procedure Fluoroscopy Diagnostic fluoroscopy Total fluoroscopy Time: 0 time: 0 min min Diagnostic fluoroscopy Total fluoroscopy dose: 14 dose: 14 mGy mGy Contrast Material Contrast Material Type Amount (ml) Isovue 300 15 Hemodynamics Rest BSA: 1.58 (m2) O2 Consumption: Estimated: 214.88 (ml/min) O2 Consumption indexed : Estimated:136 (ml/min/m) Pre Cath Intra NCS Post Cath Procedure Log Time Note 8:50:03 Patient Weight : 114 lbs 8:50:09 Patient Height : 66 inches 8:50:12 Time tracking: Regular hours (M-F 7:00 - 5:00) 8:53:36 Patient received from Med/Surg to IR Alert and oriented. Tansferred to table in Supine position. 8:53:42 Pre-procedure instructions explained to patient. 8:53:43 Pre-op teaching completed and patient verbalized understanding. 8:53:45 Family unavailable. 8:53:54 Patient allergic to Penicillins 8:53:58 Is the patient allergic to Iodine/contrast media? No. 8:54:15 Right chest area was prepped with chlora-prep and draped in sterile fashion 8:54:20 9:22:05 Physician arrived 9:22:06 --------ALL STOP TIME OUT------ 9:22:07 Final Timeout: patient, procedure, and site verified with staff and physician. All members of the team are in agreement. 9:23:09 Procedure started. 9:23:10 Full Disclosure recording started 9:29:41 portagram performed 9:30:01 Procedure ended.(Physican Out) 9:30:22 Fluoroscopy time 00.00 minutes. 9:30:29 Fluoroscopy dose: 14 mGy 9:30:29 Flurop Dose total: 14 9:30:34 Contrast amount:Isovue 300 15ml. 9:30:37 Procedure and supply charges have been captured, reviewed, submitted and are correct. Signature Audit [place] Stage Time Signature Unsigned Intra-Procedure 10/17/2020 Brandi Hayward 9:31:15 AM (R) [facility] [address] [facility] [place] [address]
--- NOTE | ~2020-10-15 | HEMODYNAMI ---
PATIENT:DASHA MCFARLAND MEDICAL RECORD: [id number] : [birth year] LOCATION: D.2222 ADMISSION DATE: 10/15/20 Generatedon:111:44 Patient name: DASHA MCFARLAND Patient #: [id number] SSN: D OB: 1970 Date of study: 10/18/2020 Page: Of Hemodynamic Procedure Report Patient Data Patient Demographics Procedure consent was obtained First Name: DASHA Gender: Female Last Name: BARTOLO : 1970 Middle Initial: A Age: 50 year(s) Patient #: [id number] Race: Unknown Additional ID: [id number] Contact details [address]: [address] [place] [address] State: [place] City: [place] Zip code: [address] Past Medical History Allergies Allergen Reaction Date Comments Reported Penicillins 03/31/2020 Penicillins 10/17/2020 Penicillins 10/18/2020 Admission Admission Data Admission Date: 10/15/2020 Admission Time: 23:53 Room #: D.2222 Height (in.): 66 BSA: 1.58 (m2) Height (cm.): 167.64 BMI: 18.4 (kg/m2) Weight (lbs.): 114 Weight (kg.): 51.71 Procedure Procedure Types Cath Procedure Peripheral Cath Diagnostic Procedure Miscellaneous Pleurex Pleurex Cath Place w/ Imaging Procedure Description Procedure Date Procedure Date: 10/18/2020 Procedure Start Time: 11:39 Procedure Staff Name Function Alon Shaw MD Performing Physician Brandi Hayward RT Lobster Fisherman Doris De Leon RN Nurse Rickie Zapien RT Scrub Procedure Data Cath Procedure Fluoroscopy Diagnostic fluoroscopy Total fluoroscopy Time: 0.4 time: 0.4 min min Diagnostic fluoroscopy Total fluoroscopy dose: 3 dose: 3 mGy mGy Procedure Medications Medication Administration Route Dosage Heparin Flush Bag added to field 2 bags (1000units/500ml NS) Lidocaine 1% added to field 20 Fentanyl I.V. 50 mcg Versed I.V. 1 mg Fentanyl I.V. 25 mcg Versed I.V. 0.5 mg Hemodynamics Rest BSA: 1.58 (m2) O2 Consumption: Estimated: 156.33 (ml/min) O2 Consumption indexed : Estimated:98.94 (ml/min/m) Heart Rate: 73 (bpm) Snapshots Pre Cath Intra NCS Post Cath Vital Signs Time Heart Resp SPO2 etCO2 NIBP Rhythm Pain Sedation Rate (ipm) (%) (mmHg) (mmHg) Status Level (bpm) 10:49:09 70 17 94 0 124/66(90) NSR 0 (11) 10(A) , No pain 10:53:15 73 19 94 0 128/68(93) NSR 0 (11) 10(A) , No pain 10:57:21 72 18 97 0 129/76(86) NSR 0 (11) 10(A) , No pain 11:01:31 66 20 97 0 125/66(85) NSR 0 (11) 10(A) , No pain 11:05:55 74 15 97 0 118/63(78) NSR 0 (11) 8(A) , No pain 11:09:59 75 17 96 0 119/69(78) NSR 0 (11) 8(A) , No pain 11:14:05 73 16 97 6.7 120/64(79) NSR 0 (11) 8(A) , No pain 11:18:12 72 16 96 12 117/64(93) NSR 0 (11) 8(A) , No pain 11:22:18 75 13 96 18.8 126/63(85) NSR 0 (11) 8(A) , No pain 11:26:26 75 16 95 0 120/64(75) NSR 0 (11) 8(A) , No pain 11:30:34 69 13 98 1.5 127/61(82) NSR 0 (11) 10(A) , No pain 11:34:44 70 16 98 0 126/63(83) NSR 0 (11) 10(A) , No pain 11:38:49 76 13 97 0 99/67(77) NSR 0 (11) 10(A) , No pain 11:43:42 66 16 98 0 115/65(79) NSR 0 (11) 10(A) , No pain Medications Time Medication Route Dose Verified Delivered Reason Notes Effec tiveness by by 10:44:39 Heparin Flush added 2 Alon Chi used for Bag to bags Colin Shaw procedure (1000units/500ml field MD WEI NS) 10:44:57 Lidocaine 1% added 20ml Aoln Chi used for to vial Colin Shaw procedure field MD WEI 11:04:22 Fentanyl I.V. 50 Alon George for mcg Colin De Leon sedation RN 11:04:46 Versed I.V. 1 mg Alon George for Colin De Leon sedation MD GIVENS 11:20:18 Versed I.V. 0.5 Alon George for mg Colin De Leon sedation MD GIVENS 11:20:58 Fentanyl I.V. 25 Alon George for mcg Colin De Leon sedation cancer registry coordinator Log Time Note 10:09:55 Patient Height : 66 inches 10:09:55 Patient Weight : 114 lbs 10:11:56 ASPIRA DRESSING KIT ([id number] opened to sterile field. 10:11:57 ASPIRA PLEURAL DRAIN CATH ([id number]) opened to sterile field. 10:12:22 Use device set IR Diagnostic 10:12:25 Sterile Angiographic Pack opened to sterile field. 10:12:28 Bag Decanter (2002S) opened to sterile field. 10:32:54 - 10:32:57 Time tracking: Regular hours (M-F 7:00 - 5:00) 10:33:32 Plan of Care:Hemodynamics will remain stable., Cardiac rhythm will remain stable., Comfort level will be maintained., Respiratory function will remain adequate., Patient/ family verbilizes understanding of procedure., Procedure tolerated without complication., Recovers from procedure without complications.. 10:33:54 Patient received from Med/Surg to IR Alert and oriented. Tansferred to table in Supine position. 10:33:58 Signed procedure consent form obtained from patient. 10:34:04 H&P Date Dictated: 10/18/2020 Within 30 days and on chart.. 10:34:06 Pre-procedure instructions explained to patient. 10:34:07 Pre-op teaching completed and patient verbalized understanding. 10:34:17 Family unavailable. 10:34:22 Patient NPO since Midnight. 10:34:34 Patient allergic to Penicillins 10:34:43 Is patient on blood thinner?No 10:34:49 ----Pre-sedation anethsthesia assessment.---- 10:34:54 Previous problem with sedation/anesthesia? No ? 10:34:56 Snore? Yes 10:35:00 Sleep apnea? No 10:35:03 Deviated septum? No 10:35:06 Opens mouth fully? Yes 10:35:12 Sticks out tongue? Yes 10:36:09 Airway obstruction? Yes pl eff. 10:36:14 Dentures? No ? 10:36:52 Alarms reviewed by Malinda Batres 10:37:06 Right chest area was prepped with chlora-prep and draped in sterile fashion 10:37:20 - 10:44:39 Heparin Flush Bag (1000units/500ml NS) 2 bags added to field was administered by Alon Shaw MD; used for procedure; Verbal order read back and verified. 10:44:57 Lidocaine 1% 20ml vial added to field was administered by Alon bynum MD; used for procedure; Verbal order read back and verified. 10:48:05 ECG and BP/O2 sat monitors applied to patient. 10:48:06 Vital chart was started 10:48:08 Baseline sample Acquired. 10:48:09 Full Disclosure recording started 10:48:09 - 10:49:40 SUTURE L27IN 2-0 MCRYL ASHU MO opened to sterile field. 10:51:47 Fire Safety Assessment: A--An alcohol-based skin anteseptic being used preoperatively., C--Open oxygen or nitrous oxide is being used. 11:01:01 Physician arrived 11:01:02 --------ALL STOP TIME OUT------ 11:01:03 Final Timeout: patient, procedure, and site verified with staff and physician. All members of the team are in agreement. 11:02:37 Procedure started. 11:04:22 Fentanyl 50 mcg I.V. was administered by Doris De Leon RN; for sedation; Verbal order read back and verified. 11:04:46 Versed 1 mg I.V. was administered by Doris De Leon RN; for sedation; Verbal order read back and verified. 11:08:13 YUCH needle opened to sterile field. 11:08:15 STOPCOCK 3-Way Large Bore ([id number]) opened to sterile field. 11:20:18 Versed 0.5 mg I.V. was administered by Doris De Leon RN; for sedation; Verbal order read back and verified. 11:20:58 Fentanyl 25 mcg I.V. was administered by Doris De Leon RN; for sedation; Verbal order read back and verified. 11:21:50 [id number] 8FR CATH DRAIN TRAY opened to sterile field. 11:38:40 Procedure ended.(Physican Out) 11:40:17 Fluoroscopy time 00.40 minutes. 11:40:21 Fluoroscopy dose: 3 mGy 11:40:21 Flurop Dose total: 3 11:40:23 Procedure and supply charges have been captured, reviewed, submitted an d are correct. 11:41:15 Report given to Med/Surg. 11:44:05 Vital chart was stopped Device Usage Item Name Manufacture Quantity Catalog Hospital Part Current Mini mal Lot# / Number Charge Number Stock Stock Serial# Code ASPIRA DRESSING Merit 1 [id number] 1 KIT ([id number] Medical ASPIRA PLEURAL Merit 1 [id number] [id number] 1 DRAIN CATH Medical ([id number]) Sterile Cardinal 1 [id number] [id number] 5 Angiographic Health Pack Bag Decanter Microtek 1 [id number] 21929 [id number] 5 () Medical Inc. SUTURE L27IN Ethicon 1 [id number] 892552 5 2-0 MCRYL ASHU MO YUCH needle [employer] [facility] 1 [id number] [id number] 5 [id number] STOPCOCK 3-Way [facility] 1 [id number] 8564 [id number] 5 [id number] Large Bore ([id number]) [id number] CareFusion 1 [id number] 826206 [id number] 5 8FR CATH DRAIN TRAY Signature Audit [place] Stage Time Signature Unsigned Intra-Procedure 10/18/2020 Brandi Hayward 11:44:02 AM RT(R) [facility] [address] [place] [address]
[2020-10-15] MEDS ORDERED: VITAMINS (20:31)
[2020-10-15] MEDS ORDERED: HYDROXYZINE HCL50 MG PO (20:31)
[2020-10-15 21:52] LABS: HEMATOCRIT 35.7 % (36.0-48.0); HEMOGLOBIN 11.6 g/dL (12-16); LYMPHOCYTE ABS# 1.87 10x3/uL (1.18-3.74); MCH 30.2 pg (26.0-34.0); MCHC 32.5 g/dL (31.0-37.0); MEAN PLATELET VOLUME 9.2 fL (7.4-10.4); RBC 3.84 10x6/uL (4.00-5.40); RDW 14.5 % (11.5-14.5); WBC 13.5 10x3/uL (4.8-10.8)
[2020-10-15 21:53] LABS: PLATELET COUNT 259 10x3/uL (130-400)
[2020-10-15 21:56] LABS: APTT 29.4 SECONDS (22.8-39.4); INR 1.05 (0.85-1.17); PROTIME 12.7 SECONDS (11.6-15.0)
[2020-10-15 21:59] LABS: CALC OSMOLALITY 280 mosm/kg (275-300); CARBON DIOXIDE 28.8 mmol/L (21.0-32.0); CHLORIDE - SERUM 104 mmol/L (98-107); CREATININE - SERUM 0.7 mg/dL (0.6-1.3); GLUCOSE 90 mg/dL (74-106); POTASSIUM - SERUM 3.8 mmol/L (3.5-5.1); SODIUM 141 mmol/L (136-145); UREA NITROGEN 12 mg/dL (7-18); eGFR NON AFRICAN AMERICAN > 90 mL/min (90-120)
[2020-10-15 22:13] LABS: LYMPHOCYTES 10 % (15-50); MONOCYTES 5 % (2-11); NEUTROPHILS 85 % (40-80); PLATELET ESTIMATE NORMAL
[2020-10-15 22:15] VITALS: BP 101/69
[2020-10-15 22:16] LABS: ALBUMIN 2.4 g/dL (3.4-5.0); ALKALINE PHOSPHATASE 116 U/L (30-120); ALT (SGPT) 14 U/L (10-68); CKMB 0.6 U/L (0.0-3.6); CREATINE KINASE 49 UL (21-215); PRO BNP 390 pg/mL (0-125); PROTEIN - SERUM 6.9 g/dL (6.4-8.2); TROPONIN-I < 0.017 ng/mL (0.000-0.060)
[2020-10-15 22:45] VITALS: BP 107/71
[2020-10-16] VITALS (28 sets, daily range): BP systolic 72–112; BP diastolic 42–72
--- NOTE | 2020-10-16 00:10 | NUR ---
DR BAUM AT BEDSIDE TO GET CONSENT SIGNED FOR CHEST TUBE PLACEMENT. PROCEDURE EXPLAINED TO PATIENT AND CONSENT SIGNED AND WITNESSED.
--- NOTE | 2020-10-16 00:20 | NUR ---
DR BAUM STARTED PROCEDURE WIT THIS NURSE, LUCINA RN, AND HAILEY RN. AREA CLEANED WITH CHLORAPREP AND DRAIPED FOR STERILITY. AREA NUMBED BY DR BAUM AT THE FOURTH INTERCOSTAL SPACE WITH 2 PERCENT LIDOCAINE. 28 FR CHEST TUPE PLACED IN FOURTH INTERCOSTAL SPACE WITH 3000 ML OF IMEDIATE FLUID RETURN. AREA DRESSED WITH VASALINE GAUZE AND DRAIN GAUZE AND SECURED WITH FOAM TAPE.
--- NOTE | 2020-10-16 02:15 | NUR ---
PATIENT ARRIVED TO UNIT. UPON TRANSFERRING FROM THE STRETCHER TO THE BED. PATIENT ROLLED TO LEFT SIDE AND EVERYTHING WAS SATURATED WITH BLOOD. PATIENT CHEST TUBE WAS DISLODGED. VASELINE BANDAGE AND PRESSURE DRESSING APPLIED. DR. BAUM NOTIFIED. STAT CXR ORDERED PATIENT IN S/S OF DISTRESS. NO C/O PAIN. CALL LIGHT WITHIN REACH. WILL CPOC.
--- NOTE | 2020-10-16 03:15 | NUR ---
ATTEMPTED TO ADMINISTER ANTIBIOTIC UNABLE PULL FROM PYXIS. ALLERGY NOTED. SPOKE WITH PATIENT SHE STATED THAT SHE HAS HAD ROCEPHIN PRIOR AND HAD NO REACTION. CALLED AND SPOKE WITH AFTER HOURS PHARMACY. PHARMACIST STATED HE WILL VERIFY MEDICATION. STILL WAITING AT THIS TIME.
[2020-10-16 05:09] LABS: BASOPHILS 0.1 % (0-2); EOSINOPHILS 0.1 % (0-7); HEMATOCRIT 35.9 % (36.0-48.0); HEMOGLOBIN 11.4 g/dL (12-16); IMMATURE GRANULOCYTES 3.5 % (0-5); LYMPHOCYTE ABS# 0.89 10x3/uL (1.18-3.74); LYMPHOCYTES 6.5 % (15-50); MCH 29.9 pg (26.0-34.0); MCHC 31.8 g/dL (31.0-37.0); MCV 94.2 fL (80.0-100.0); MEAN PLATELET VOLUME 9.2 fL (7.4-10.4); MONOCYTES 5.6 % (2-11); NEUTROPHIL ABS# 11.44 10x3/uL (1.56-6.13); NEUTROPHILS 84.2 % (40-80); PLATELET COUNT 225 10x3/uL (130-400); RBC 3.81 10x6/uL (4.00-5.40); RDW 14.7 % (11.5-14.5); WBC 13.6 10x3/uL (4.8-10.8)
[2020-10-16 05:23] LABS: ALBUMIN 1.8 g/dL (3.4-5.0); ALKALINE PHOSPHATASE 97 U/L (30-120); ALT (SGPT) 12 U/L (10-68); BILIRUBIN - TOTAL 0.22 mg/dL (0.2-1.3); CALC OSMOLALITY 276 mosm/kg (275-300); CALCIUM 8.1 mg/dL (8.5-10.1); CARBON DIOXIDE 24.2 mmol/L (21.0-32.0); CHLORIDE - SERUM 108 mmol/L (98-107); CREATININE - SERUM 0.6 mg/dL (0.6-1.3); GLUCOSE 118 mg/dL (74-106); MAGNESIUM - SERUM 1.5 mg/dL (1.8-2.4); PHOSPHOROUS 4.1 mg/dL (2.5-4.9); POTASSIUM - SERUM 3.7 mmol/L (3.5-5.1); PROTEIN - SERUM 5.5 g/dL (6.4-8.2); SODIUM 138 mmol/L (136-145); UREA NITROGEN 13 mg/dL (7-18); eGFR NON AFRICAN AMERICAN > 90 mL/min (90-120)
--- NOTE | 2020-10-16 05:59 | NUR ---
DR BAUM RETURNED CALL AFTER LOOKING AT CXR, UPDATED REGARDING PT STATUS-(RESTING COMFORTABLY, DENIES ANY NEEDS) STATES PNEUMO DOES NOT LOOK TO BE EXPANDING, CONT TO MONITOR FOR NOW.
--- NOTE | 2020-10-16 07:50 | NUR ---
ABSENT BREATH SOUNDS NOTED DURING AM ASSESSMENT, STAT CHEST X RAY ORDERED TO EVALUATE STATUS POST ACCIDENTAL REMOVAL OF RIGHT CHEST TUBE YESTERDAY. PATIENT IN NO DISTRESS AT THIS TIME, MG, SOB AT REST.
--- NOTE | 2020-10-16 08:40 | NUR ---
PATIENT ASSISTED FROM BED TO BSC WITH X 1 ASSIST. RETURNED BACK TO BED. VOID X 1. RADIOLOGY AT BEDSIDE FOR CHEST X RAY.
--- NOTE | 2020-10-16 09:40 | NUR ---
PATIENT ASSISTED TO POSITION OF COMFORT, SCHEDULED MEDICATIONS ADMINISTERED, WATER AT BEDSIDE, NO NEEDS. RESULTS OF CHEST X RAY EXPLAINED, CARE PLAN REVIEWED WITH PATIENT. SITTING UP HIGH PATEL IN NO ACUTE DISTRESS. ALERT AND ORIENTED X 4. MONITORING IN LINE OF SIGHT. VITALS STABLE.
--- NOTE | 2020-10-16 10:59 | NUR ---
PATIENT ROUNDING AND REASSESSMENT PERFORMED. NO CHANGES FROM PREVIOUS ASSESSMENT. VITALS STABLE. PATIENT RESTING WITH EYES CLOSED RESPIRATIONS EVEN AND UNLABORED. NAD. NS IVF INFUSING AT 125ML/HR.
--- NOTE | 2020-10-16 11:51 | NUR ---
PATIENT RESTING WITH EYES CLOSED AND RESPIRATIONS EVEN.
--- NOTE | 2020-10-16 12:30 | NUR ---
LUNCH TRAY SET UP FOR PATIENT, REQUESTING TWO DP, DIETARY NOTIFIED. PATIENT AWAKE ALERT AND ORIENTED. NO CHANGE IN STATUS.
--- NOTE | 2020-10-16 13:46 | NUR ---
ROUNDING PERFORMED. PATIENT FINISHED WITH LUNCH TRAY, RESTING WITH EYES CLOSED RESPIRATIONS EVEN NAD. MONITORING IN LINE OF SIGHT.
--- NOTE | 2020-10-16 14:19 | NUR ---
PATIENT CALL LIGHT REPLACED DUE TO MALFUNCTION, ASSISTED TO BEDSIDE COMMODE FOR VOID X 1 YELLOW URINE. LINENS CHANGED AND ROOM TIDIED. ASSISTED BACK TO BED. LINENS STRAIGHTENED, BLANKETS APPLIED, ASSISTED TO POSITION OF COMFORT. DENIES FURTHER NEEDS.
--- NOTE | 2020-10-16 15:02 | NUR ---
ROUND WITH DR PINO PERFORMED, OPTIONS DISCUSSED AT LENGTH WITH PATIENT. DR PINO STATES PATIENT IS CLEARED TO MOVE TO MED SURG FROM HIS STAND POINT AND THAT HE WILL PLACE A PLEURX CATH TOMORROW MORNING IN THE OR.
--- NOTE | 2020-10-16 15:10 | NUR ---
DR DEMETRIA SCOTT CALLED AT [address] PINO PLAN OF CARE[address] TELEPHONE ORDER TO MOVE TO MED SURG RECEIVED AT THIS TIME. FEEDLOT MANAGER LUCINA GIVENS NOTIFIED.
--- NOTE | 2020-10-16 15:29 | NUR ---
DR BENAVIDES CALLED, NOTIFIED OF PATIENT STATUS AND PLAN OF CARE.
--- NOTE | 2020-10-16 15:49 | NUR ---
DR MAKAYLA NEWMAN.
--- NOTE | 2020-10-16 16:06 | NUR ---
REPORT CALLED TO CHON BLACKMAN, ACCEPTED TO ROOM 2222.
--- NOTE | 2020-10-16 16:30 | NUR ---
PATIENT TAKEN TO ROOM 2222, STABLE, TOLERATED MOVE WELL, ALL BELONGINGS ACCOUNTED FOR BY PATIENT.
[2020-10-16 20:33] LABS: BILIRUBIN NEGATIVE (NEGATIVE); KETONE NEGATIVE (NEGATIVE); NITRITE NEGATIVE (NEGATIVE); UROBILINOGEN NORMAL mg/dL (< 2)
[2020-10-17] VITALS: BP 87/60
--- NOTE | 2020-10-17 01:02 | NUR ---
I have reviewed this patient and I concur with the Shift Assessment completed by the Licensed Practical Nurse today this shift.
--- NOTE | 2020-10-17 01:02 | NUR ---
I have reviewed this patient and I concur with the Shift Assessment completed by the Licensed Practical Nurse today this shift.
[2020-10-17 04:00] VITALS: BP 85/48
--- NOTE | 2020-10-17 07:24 | NUR ---
RECIEVED BEDSIDE REPORT. IN BED, AROUSES TO VOICE. DENIES NEEDS AT THIS TIME. BED LOW POSITION, CALL LIGHT IN REACH. WILL CONTINUE TO MONITOR.
[2020-10-17 08:02] LABS: ALBUMIN 1.9 g/dL (3.4-5.0); ALKALINE PHOSPHATASE 95 U/L (30-120); ALT (SGPT) 13 U/L (10-68); BILIRUBIN - TOTAL 0.27 mg/dL (0.2-1.3); CALC OSMOLALITY 275 mosm/kg (275-300); CALCIUM 8.1 mg/dL (8.5-10.1); CARBON DIOXIDE 27.5 mmol/L (21.0-32.0); CHLORIDE - SERUM 105 mmol/L (98-107); CREATININE - SERUM 0.7 mg/dL (0.6-1.3); GLUCOSE 83 mg/dL (74-106); MAGNESIUM - SERUM 1.5 mg/dL (1.8-2.4); PHOSPHOROUS 3.5 mg/dL (2.5-4.9); POTASSIUM - SERUM 3.8 mmol/L (3.5-5.1); PROTEIN - SERUM 5.1 g/dL (6.4-8.2); SODIUM 139 mmol/L (136-145); UREA NITROGEN 11 mg/dL (7-18); eGFR NON AFRICAN AMERICAN > 90 mL/min (90-120)
[2020-10-17 08:08] LABS: BASOPHILS 0.1 % (0-2); EOSINOPHILS 0.6 % (0-7); HEMATOCRIT 33.1 % (36.0-48.0); HEMOGLOBIN 10.5 g/dL (12-16); LYMPHOCYTE ABS# 1.29 10x3/uL (1.18-3.74); LYMPHOCYTES 18.4 % (15-50); MCH 30.1 pg (26.0-34.0); MCHC 31.7 g/dL (31.0-37.0); MCV 94.8 fL (80.0-100.0); MEAN PLATELET VOLUME 9.6 fL (7.4-10.4); MONOCYTES 8.5 % (2-11); NEUTROPHIL ABS# 5.08 10x3/uL (1.56-6.13); NEUTROPHILS 72.4 % (40-80); PLATELET COUNT 205 10x3/uL (130-400); RBC 3.49 10x6/uL (4.00-5.40); RDW 14.8 % (11.5-14.5)
[2020-10-17 08:11] LABS: APTT 32.5 SECONDS (22.8-39.4); INR 1.07 (0.85-1.17); PROTIME 12.9 SECONDS (11.6-15.0)
[2020-10-17 13:26] VITALS: Ht 167.6 cm; Wt 51.7 kg
[2020-10-17 15:25] VITALS: BP 104/62
[2020-10-17 18:35] VITALS: BP 106/52
[2020-10-17 20:00] VITALS: BP 112/62
--- NOTE | 2020-10-17 22:58 | NUR ---
PT RESTING IN BED. COMPLAINED OF PAIN WHERE PAST CHEST TUBE WAS. PAIN MEDICATION WAS GIVEN AND EFFECTIVE. ABLE TO MAKE WANTS AND NEEDS KNOWN CLEARLY. BED IN LOWEST POSITION. CALL LIGHT IN REACH.
[2020-10-18] VITALS (11 sets, daily range): BP systolic 107–141; BP diastolic 55–73
[2020-10-18 05:27] LABS: BASOPHILS 0.2 % (0-2); EOSINOPHILS 0.8 % (0-7); HEMATOCRIT 29.2 % (36.0-48.0); HEMOGLOBIN 9.2 g/dL (12-16); LYMPHOCYTE ABS# 1.23 10x3/uL (1.18-3.74); LYMPHOCYTES 24.9 % (15-50); MCH 29.7 pg (26.0-34.0); MCHC 31.5 g/dL (31.0-37.0); MCV 94.2 fL (80.0-100.0); MEAN PLATELET VOLUME 9.3 fL (7.4-10.4); MONOCYTES 12.8 % (2-11); NEUTROPHIL ABS# 3.03 10x3/uL (1.56-6.13); NEUTROPHILS 61.3 % (40-80); RDW 14.8 % (11.5-14.5)
[2020-10-18 05:32] LABS: PLATELET COUNT 150 10x3/uL (130-400); WBC 4.9 10x3/uL (4.8-10.8)
[2020-10-18 06:38] LABS: ALBUMIN 1.6 g/dL (3.4-5.0); ALKALINE PHOSPHATASE 79 U/L (30-120); BILIRUBIN - TOTAL 0.17 mg/dL (0.2-1.3); CALC OSMOLALITY 275 mosm/kg (275-300); CALCIUM 7.9 mg/dL (8.5-10.1); CARBON DIOXIDE 26.2 mmol/L (21.0-32.0); CHLORIDE - SERUM 105 mmol/L (98-107); CREATININE - SERUM 0.6 mg/dL (0.6-1.3); GLUCOSE 87 mg/dL (74-106); MAGNESIUM - SERUM 1.5 mg/dL (1.8-2.4); PHOSPHOROUS 3.5 mg/dL (2.5-4.9); POTASSIUM - SERUM 3.3 mmol/L (3.5-5.1); SODIUM 139 mmol/L (136-145); UREA NITROGEN 10 mg/dL (7-18); eGFR NON AFRICAN AMERICAN > 90 mL/min (90-120)
[2020-10-18 06:39] LABS: ALT (SGPT) 9 U/L (10-68)
--- NOTE | 2020-10-18 07:00 | NUR ---
RECEIVED BEDSIDE REPORT ON PATIENT AND ASSUMED CARE. PATIENT ALERT AND ORIENTED X 4, O2 3LPM VIA NC, BBS CLEAR AND EQUAL DIMINISHED IN THE BASES. IV 20 GA TO RIGHT FA, NSL, DRESSING C/D/I, AND IV L FA 18 GA INFUSING NS AT 100 ML/HR. NO S/S OF INFILTRATION. MORNING LABS SHOW LOW POTASSIUM 3.3 AND LOW MAG 1.5 WILL REPLACE IV PER PROTOCOL DUE TO PATIENT BEING NPO FOR PROCEDURE THIS AM. PATIENT DENIES ANY PAIN AT THIS TIME AND STATES IT HAS BEEN WELL CONTROLLED WITH MORPHINE. DRESING TO RIGHT CHEST LATERAL, C/D/I. HEAD TO TOE ASSESSMENT COMPLETED.
[2020-10-18 07:14] LABS: INR 1.05 (0.85-1.17); PROTIME 12.7 SECONDS (11.6-15.0)
--- NOTE | 2020-10-18 08:02 | NUR ---
DRAIN TO RIGHT LOWER ABDOMEN NOTED TO HAVE STITCHES PULLED OUT, PATIENTS STATES DRAIN HAD BEEN PLACED LAST DUE TO ACSITES BUT SHADI HAS TO DRAIN IT ONCE EVERY THREE - FOUR WEEKS AT MOST. LAST TIME SHE DRAINED IT SHE ONLY DRAINED 65 ML. IR AT ROOM AND FLUSHED DRAIN AND DRESSING PLACED TO PROTECT DRAIN.
--- NOTE | 2020-10-18 10:28 | NUR ---
PATIENT TO IR FOR PROCEDURE.
--- NOTE | 2020-10-18 12:15 | NUR ---
PATIENT BACK FROM IR, VSS.
[2020-10-18] MEDS ORDERED: OMNICEF300 MG PO (13:23)
[2020-10-18] MEDS ORDERED: FLORAJEN3 CAPS460 MG PO (13:23)
[2020-10-18] MEDS ORDERED: PROTONIX40 MG PO (13:23)
[2020-10-18] MEDS ORDERED: POTASSIUM CHLO10 ME1 PO (13:54)
[2020-10-18] MEDS ORDERED: OMEPRAZOLE20 M1 PO (13:55)
[2020-10-18] MEDS ORDERED: MAGNESIUM OXID250 MG PO (13:57)
[2020-10-18] MEDS ORDERED: [UNRECOGNIZED DRUG - OTHER] PO (14:00)
[2020-10-18] MEDS ORDERED: VIT D (14:01)
[2020-10-18] MEDS ORDERED: [UNRECOGNIZED DRUG - OTHER] (14:01)
[2020-10-18] MEDS ORDERED: [UNRECOGNIZED DRUG - OTHER] PO (14:02)
[2020-10-18] MEDS ORDERED: [UNRECOGNIZED DRUG - OTHER] PO (14:03)
[2020-10-18] MEDS ORDERED: [UNRECOGNIZED DRUG - OTHER] PO (14:04)
--- NOTE | 2020-10-18 14:20 | NUR ---
PATIENT WALKED IN HALLWAY BY RT ON ROOM AIR, SPO2 AT START OF WALK WAS 95% AND DROPPED TO 91% DURING WALK AND QUICKLY RECOVERED TO 95%.
--- NOTE | 2020-10-18 15:39 | MORECARE ---
CASE MANAGEMENT DISCHARGE SUMMARY PATIENT: DASHA MCFARLAND UNIT: [id number] ADM DATE: 10/15/20 AGE: 50 : 70 SEX: F ROOM/BED: D.2222 AUTHOR: MILLIE MINA PHYSICIAN: REFERRING PHYSICIAN: DEMETRIA SCOTT MD DATE OF SERVICE: 10/18/20 Case Management Discharge Planning Summary COMMENTS ENTERED DATE: 10/18/20 15:34 CT COMMENT TYPE: Discharge Planning REVIEWER: Tameka Hampton CM met with patient to complete initial dc planning assessment. CM educated patient on the CM role and verbal consent given by patient to complete assessment. Patient lives at home with her mother where she states she is independent with her care. Her daughter or her mother will be her driver education road instructor home today. At discharge patient plans to return home and feels this is a safe discharge. CM discussed availability of home health, rehab services, and medical equipment. At this time she has a shower chair and a elevated toilet seat that she does not use. She has her pleurx catheter supplies and know how to care for all of that. [facility] is current with [facility] and she is also on [facility]. She stated that she passed her walk test for home O2, but she said that part of the palliative program that if she thinks she needs O2 she can call and they will come assess her. Patient denied known discharge needs at this time. I will send clinicals over to [facility] . CM will continue to follow and will assist as needed with dc plans/needs. DCP REVIEW SUMMARY ANTICIPATED D/C DATE: EXPECTED LOS : CASE STATUS: DCP Initiated INITIAL REVIEW: 10/16/2020 INITIAL REVIEWER: Tameka Hampton FINAL DISCHARGE DISPOSITION: 01 : Home or Self Care (Routine Discharge) FINAL REVIEWER: FINAL REVIEW DATE: DCP Focus Questions & Answers DCP Screen QUESTION: ANSWER High Risk Factors: : Hosp related to CHF, COPD, DM, End Stage Ds, CVA, CA DCP Evaluation QUESTION: ANSWER Patient's ability to cope with chronic illness : d. No chronic illness Patient and/or caregiver agree upon recommended discharge plan? : Yes Family / Caregiver's ability to cope with chronic illness: : a. Adequate (ability to meet patient's medical needs, ensures patient attends medical appts.) Patient's current cognitive status: : *Oriented to person, place, situation, time and present Family / Caregiver's ability to cope with chronic illness: : a. Adequate (ability to meet patient's medical needs, ensures patient attends medical appts.) Physical Status: : Independent with ADL's Does the patient have the ability to pay for or attain post discharge needs / services? : Yes Functional screen assessment: : Can meet basic needs but may require referral for resources Living Arrangements: : Home Alone with Support Equipment needed for post hospitalization: : Other Is there a likelihood that the patient will require additional services to return to the preadmission environment? : No Living arrangements comments: : LIVES WITH MOTHER HAS CHILDREN Baseline cognitive status: : *Oriented to person, place, situation, time and present Other Equipment comments: : PLEUREX SUPPLIES Results of this evaluation have been discussed with: : Patient Patient with capacity for self-care or can be cared for in same environment as prior to hospitalization? : Yes Physical environment modification needed / anticipated for discharge: : No Medication Management: : Patient states they do not have transporation to bean picker medications [facility] Planned post hospital services available for patient? : Yes Does Patient have transportation to get home and to follow-up medical appointments when discharged from the hospital? : Yes Planned post hospital services covered by insurance plan? : Yes Would patient like to participate in any Care Coordination programs (if applicable): : Not applicable Does the patient have electricity at home? : Yes Does the patient have running water in their house? : Yes Equipment in use: : Other Equipment in use: : Shower Chair Other Equipment comments: : ELEVATED TOILET Mental health screen: : No mental health history Psychosocial status: : Independent adult (18-64) Resources / Services in place: : Palliative care at home Resources / Services in place: : Home health Contact information for resources in use: : [facility] DCP Re-evaluation QUESTION: ANSWER Would patient like to participate in any Care Coordination programs (if applicable): : Not applicable PATIENT: DASHA MCFARLAND ENCOUNTER: [id number] MEDICAL RECORD#: [id number] ADMISSION DATE: 10/15/2020 DISCHARGE DATE: ATTENDING MD: DEMETRIA SLOAN : AGE: 50 MARITAL STATUS: D DC PLAN ID: [id number] FACILITY: [facility] PRINTED ON: 10/18/20 15:39 CT All edits/amendments must be made on the electronic document DICTATION DATE: 10/18/201538 CORPORATE AUDITOR: JOSE GUADALUPE 10/18/201538 RPT#: [id number] DC DATE: STATUS: ADM IN [facility] [address] [place] [address] END OF REPORT
--- NOTE | 2020-10-18 15:49 | NUR ---
PATIENT IVS DISCONTINUED IN PREPARATION FOR DISCHARGE TO HOME PER ORDER.
[2020-10-18] MEDS ORDERED: HYDROCODONE-AC1 EAC2 PO (16:10)
--- NOTE | 2020-10-18 17:02 | NUR ---
PATIENT GIVEN DISCHARGE INSTRUCTIONS AND VERBALIZED UNDERSTANDING, TALKED AT LENGHT ON OPTIONS TO ASSIST WITH SMOKING CESSATION, PATIENT STATES IT HELPS WITH HER STRESS LEVELS TO SMOKE BUT WILL DISCUSS WITH PCP IF DECIDES TO QUITE. PATIENT AMBULATORY WITH RN TO VEHICLE, MOTHER DRIVING.
--- NOTE | 2020-10-19 10:19 | MORECARE ---
CASE MANAGEMENT DISCHARGE SUMMARY PATIENT: DASHA MCFARLAND UNIT: [id number] ADM DATE: 10/15/20 AGE: 50 : 70 SEX: F ROOM/BED: D.2222 AUTHOR: MILLIE MINA PHYSICIAN: REFERRING PHYSICIAN: DEMETRIA SCOTT MD DATE OF SERVICE: 10/19/20 Case Management Discharge Planning Summary COMMENTS ENTERED DATE: 10/18/20 15:34 CT COMMENT TYPE: Discharge Planning REVIEWER: Tameka Hampton CM met with patient to complete initial dc planning assessment. CM educated patient on the CM role and verbal consent given by patient to complete assessment. Patient lives at home with her mother where she states she is independent with her care. Her daughter or her mother will be her courtesy bus driver home today. At discharge patient plans to return home and feels this is a safe discharge. CM discussed availability of home health, rehab services, and medical equipment. At this time she has a shower chair and a elevated toilet seat that she does not use. She has her pleurx catheter supplies and know how to care for all of that. She is current with [facility] and she is also on Palliative Care. She stated that she passed her walk test for home O2, but she said that part of the palliative program that if she thinks she needs O2 she can call and they will come assess her. Patient denied known discharge needs at this time. I will send clinicals over to [facility] . CM will continue to follow and will assist as needed with dc plans/needs. DCP REVIEW SUMMARY ANTICIPATED D/C DATE: EXPECTED LOS : CASE STATUS: DCP Initiated INITIAL REVIEW: 10/16/2020 INITIAL REVIEWER: Tameka Hampton FINAL DISCHARGE DISPOSITION: 01 : Home or Self Care (Routine Discharge) FINAL REVIEWER: FINAL REVIEW DATE: DCP Focus Questions & Answers DCP Screen QUESTION: ANSWER High Risk Factors: : Hosp related to CHF, COPD, DM, End Stage Ds, CVA, CA DCP Evaluation QUESTION: ANSWER Patient's ability to cope with chronic illness : d. No chronic illness Patient and/or caregiver agree upon recommended discharge plan? : Yes Family / Caregiver's ability to cope with chronic illness: : a. Adequate (ability to meet patient's medical needs, ensures patient attends medical appts.) Patient's current cognitive status: : *Oriented to person, place, situation, time and present Family / Caregiver's ability to cope with chronic illness: : a. Adequate (ability to meet patient's medical needs, ensures patient attends medical appts.) Physical Status: : Independent with ADL's Does the patient have the ability to pay for or attain post discharge needs / services? : Yes Functional screen assessment: : Can meet basic needs but may require referral for resources Living Arrangements: : Home Alone with Support Equipment needed for post hospitalization: : Other Is there a likelihood that the patient will require additional services to return to the preadmission environment? : No Living arrangements comments: : LIVES WITH MOTHER HAS CHILDREN Baseline cognitive status: : *Oriented to person, place, situation, time and present Other Equipment comments: : PLEUREX SUPPLIES Results of this evaluation have been discussed with: : Patient Patient with capacity for self-care or can be cared for in same environment as prior to hospitalization? : Yes Physical environment modification needed / anticipated for discharge: : No Medication Management: : Patient states they do not have transporation to brain picker medications [facility] Planned post hospital services available for patient? : Yes Does Patient have transportation to get home and to follow-up medical appointments when discharged from the hospital? : Yes Planned post hospital services covered by insurance plan? : Yes Would patient like to participate in any Care Coordination programs (if applicable): : Not applicable Does the patient have electricity at home? : Yes Does the patient have running water in their house? : Yes Equipment in use: : Other Equipment in use: : Shower Chair Other Equipment comments: : ELEVATED TOILET Mental health screen: : No mental health history Psychosocial status: : Independent adult (18-64) Resources / Services in place: : Palliative care at home Resources / Services in place: : Home health Contact information for resources in use: : [facility] DCP Re-evaluation QUESTION: ANSWER Would patient like to participate in any Care Coordination programs (if applicable): : Not applicable PATIENT: DASHA MCFARLAND ENCOUNTER: [id number] MEDICAL RECORD#: [id number] ADMISSION DATE: 10/15/2020 DISCHARGE DATE: 10/18/2020 ATTENDING MD: DEMETRIA SLOAN : AGE: 50 MARITAL STATUS: D DC PLAN ID: [id number] FACILITY: [facility] PRINTED ON: 10/19/20 10:19 CT All edits/amendments must be made on the electronic document DICTATION DATE: 10/19/20 1019 SCREEN REPAIRER CRUSHER: JOSE GUADALUPE 10/19/20 1019 RPT#: [id number] DC DATE:10/18/20 STATUS: DIS IN [facility] [address] [place] [address] END OF REPORT
--- NOTE | 2020-10-19 10:43 | MORECARE ---
CASE MANAGEMENT DISCHARGE SUMMARY PATIENT: DASHA MCFARLAND UNIT: [id number] ADM DATE: 10/15/20 AGE: 50 : 70 SEX: F ROOM/BED: D.2222 AUTHOR: MILLIE MINA PHYSICIAN: REFERRING PHYSICIAN: DEMETRIA SCOTT MD DATE OF SERVICE: 10/19/20 Case Management Discharge Planning Summary COMMENTS ENTERED DATE: 10/18/20 15:34 CT COMMENT TYPE: Discharge Planning REVIEWER: Tameka Hampton CM met with patient to complete initial dc planning assessment. CM educated patient on the CM role and verbal consent given by patient to complete assessment. Patient lives at home with her mother where she states she is independent with her care. Her daughter or her mother will be her tank wagon driver home today. At discharge patient plans to return home and feels this is a safe discharge. CM discussed availability of home health, rehab services, and medical equipment. At this time she has a shower chair and a elevated toilet seat that she does not use. She has her pleurx catheter supplies and know how to care for all of that. She is current with [facility] and she is also on Palliative Care. She stated that she passed her walk test for home O2, but she said that part of the palliative program that if she thinks she needs O2 she can call and they will come assess her. Patient denied known discharge needs at this time. I will send clinicals over to [facility] . CM will continue to follow and will assist as needed with dc plans/needs. DCP REVIEW SUMMARY ANTICIPATED D/C DATE: EXPECTED LOS : CASE STATUS: DCP Initiated INITIAL REVIEW: 10/16/2020 INITIAL REVIEWER: Tameka Hampton FINAL DISCHARGE DISPOSITION: 01 : Home or Self Care (Routine Discharge) FINAL REVIEWER: FINAL REVIEW DATE: DCP Focus Questions & Answers DCP Screen QUESTION: ANSWER High Risk Factors: : Hosp related to CHF, COPD, DM, End Stage Ds, CVA, CA DCP Evaluation QUESTION: ANSWER Patient's ability to cope with chronic illness : d. No chronic illness Patient and/or caregiver agree upon recommended discharge plan? : Yes Family / Caregiver's ability to cope with chronic illness: : a. Adequate (ability to meet patient's medical needs, ensures patient attends medical appts.) Patient's current cognitive status: : *Oriented to person, place, situation, time and present Family / Caregiver's ability to cope with chronic illness: : a. Adequate (ability to meet patient's medical needs, ensures patient attends medical appts.) Physical Status: : Independent with ADL's Does the patient have the ability to pay for or attain post discharge needs / services? : Yes Functional screen assessment: : Can meet basic needs but may require referral for resources Living Arrangements: : Home Alone with Support Equipment needed for post hospitalization: : Other Is there a likelihood that the patient will require additional services to return to the preadmission environment? : No Living arrangements comments: : LIVES WITH MOTHER HAS CHILDREN Baseline cognitive status: : *Oriented to person, place, situation, time and present Other Equipment comments: : PLEUREX SUPPLIES Results of this evaluation have been discussed with: : Patient Patient with capacity for self-care or can be cared for in same environment as prior to hospitalization? : Yes Physical environment modification needed / anticipated for discharge: : No Medication Management: : Patient states they do not have transporation to peanut picker medications [facility] Planned post hospital services available for patient? : Yes Does Patient have transportation to get home and to follow-up medical appointments when discharged from the hospital? : Yes Planned post hospital services covered by insurance plan? : Yes Would patient like to participate in any Care Coordination programs (if applicable): : Not applicable Does the patient have electricity at home? : Yes Does the patient have running water in their house? : Yes Equipment in use: : Other Equipment in use: : Shower Chair Other Equipment comments: : ELEVATED TOILET Mental health screen: : No mental health history Psychosocial status: : Independent adult (18-64) Resources / Services in place: : Palliative care at home Resources / Services in place: : Home health Contact information for resources in use: : [facility] DCP Re-evaluation QUESTION: ANSWER Would patient like to participate in any Care Coordination programs (if applicable): : Not applicable PATIENT: DASHA MCFARLAND ENCOUNTER: [id number] MEDICAL RECORD#: [id number] ADMISSION DATE: 10/15/2020 DISCHARGE DATE: 10/18/2020 ATTENDING MD: DEMETRIA SLOAN : AGE: 50 MARITAL STATUS: D DC PLAN ID: [id number] FACILITY: [facility] PRINTED ON: 10/19/20 10:43 CT All edits/amendments must be made on the electronic document DICTATION DATE: 10/19/20 1043 TEACHER DANCING: JOSE GUADALUPE 10/19/20 1043 RPT#: [id number] DC DATE:10/18/20 STATUS: DIS IN [facility] [address] [place] [address] END OF REPORT
== END 2020-10-18 17:04 | disposition home health service (06) | DRG 186 ==
LOC: D.ER 20:18 → D.MS 23:53 → D.EDHOLD 23:53 → D.ICU 23:53 → D.MS 10-16 16:39
PROVIDERS: Family Medicine; General Practice; ADMIT Emergency Medicine; ATTEND Emergency Medicine
PROC: 0W9930Z Drainage of Right Pleural Cavity with Drainage Device, Percutaneous Approach (ICD-10-PCS; principal; 2020-10-15)
DX: J94.8 Other specified pleural conditions (principal); E43 Unspecified severe protein-calorie malnutrition; R18.0 Malignant ascites; C56.9 Malignant neoplasm of unspecified ovary; C79.9 Secondary malignant neoplasm of unspecified site; Z68.1 Body mass index [BMI] 19.9 or less, adult; J90 Pleural effusion, not elsewhere classified; Z72.0 Tobacco use; J98.2 Interstitial emphysema

== ENCOUNTER 2020-11-12 15:05 | Emergency (ER) | payer MEDICAID ==
[~2020-11-12] VITALS: Ht 167.6 cm; Wt 46.4 kg
[~2020-11-12 15:05] MED LIST changes: +FLORAJEN3 CAPS460 MG PO; +HYDROCODONE-AC1 EAC2 PO; +HYDROXYZINE HCL50 MG PO; +MAGNESIUM OXID250 MG PO; +OMEPRAZOLE20 M1 PO; +POTASSIUM CHLO10 ME1 PO; +PROTONIX40 MG PO; +VIT D; +VITAMINS; +[UNRECOGNIZED DRUG - OTHER]; +[UNRECOGNIZED DRUG - OTHER] PO; +[UNRECOGNIZED DRUG - OTHER] PO; +[UNRECOGNIZED DRUG - OTHER] PO; +[UNRECOGNIZED DRUG - OTHER] PO
[2020-11-12 15:26] VITALS: Ht 167.6 cm; Wt 46.4 kg
[2020-11-12 15:40] VITALS: BP 104/73
[2020-11-12 16:25] LABS: BILIRUBIN NEGATIVE (NEGATIVE); KETONE NEGATIVE (NEGATIVE); NITRITE NEGATIVE (NEGATIVE); UROBILINOGEN NORMAL mg/dL (< 2)
[2020-11-12 16:28] LABS: BASOPHILS 0.2 % (0-2); EOSINOPHILS 0.3 % (0-7); HEMATOCRIT 37.7 % (36.0-48.0); HEMOGLOBIN 12.5 g/dL (12-16); IMMATURE GRANULOCYTES 0.3 % (0-5); LYMPHOCYTE ABS# 1.44 10x3/uL (1.18-3.74); LYMPHOCYTES 22.9 % (15-50); MCH 30.2 pg (26.0-34.0); MCHC 33.2 g/dL (31.0-37.0); MCV 91.1 fL (80.0-100.0); MEAN PLATELET VOLUME 9.1 fL (7.4-10.4); MONOCYTES 7.3 % (2-11); NEUTROPHIL ABS# 4.35 10x3/uL (1.56-6.13); RBC 4.14 10x6/uL (4.00-5.40); RDW 16.4 % (11.5-14.5); WBC 6.3 10x3/uL (4.8-10.8)
[2020-11-12 16:30] LABS: PLATELET COUNT 237 10x3/uL (130-400)
[2020-11-12 16:36] LABS: CALC OSMOLALITY 274 mosm/kg (275-300); CALCIUM 8.6 mg/dL (8.5-10.1); CARBON DIOXIDE 31.4 mmol/L (21.0-32.0); CHLORIDE - SERUM 100 mmol/L (98-107); CREATININE - SERUM 0.8 mg/dL (0.6-1.3); GLUCOSE 91 mg/dL (74-106); POTASSIUM - SERUM 3.6 mmol/L (3.5-5.1); SODIUM 137 mmol/L (136-145); UREA NITROGEN 16 mg/dL (7-18); eGFR NON AFRICAN AMERICAN 80 mL/min (90-120)
[2020-11-12 16:45] LABS: ALBUMIN 2.2 g/dL (3.4-5.0); ALKALINE PHOSPHATASE 167 U/L (30-120); ALT (SGPT) 17 U/L (10-68); AMYLASE - SERUM 41 U/L (25-115); BILIRUBIN - TOTAL 0.18 mg/dL (0.2-1.3); LIPASE 184 U/L (73-393); PROTEIN - SERUM 6.8 g/dL (6.4-8.2)
[2020-11-12 16:51] LABS: TROPONIN-I < 0.017 ng/mL (0.000-0.060)
[2020-11-12] MEDS ORDERED: ZOFRAN ODT4 MG/UDTAB PO (17:08)
== END 2020-11-12 17:38 | disposition home or self-care (01) ==
LOC: D.ER 15:05
PROVIDERS: Family Medicine
DX: T85.9XXA Unspecified complication of internal prosthetic device, implant and graft, initial encounter (principal)

== ENCOUNTER 2020-12-09 16:42 | Inpatient (IN) | payer MEDICAID ==
[~2020-12-09] VITALS: Ht 167.6 cm; Wt 48.1 kg
[~2020-12-09 16:42] MED LIST changes: +ZOFRAN ODT4 MG/UDTAB PO
[2020-12-09 17:15] VITALS: BP 92/63
[2020-12-09 17:34] VITALS: BP 92/65
[2020-12-09 17:34] LABS: BASOPHILS 0.7 % (0-2); EOSINOPHILS 0.5 % (0-7); HEMATOCRIT 40.7 % (36.0-48.0); HEMOGLOBIN 13.5 g/dL (12-16); LYMPHOCYTES 23.8 % (15-50); MCH 30.4 pg (26.0-34.0); MCHC 33.3 g/dL (31.0-37.0); MCV 91.3 fL (80.0-100.0); MEAN PLATELET VOLUME 7.2 fL (7.4-10.4); MONOCYTES 15.3 % (2-11); NEUTROPHILS 59.7 % (40-80); PLATELET COUNT 475 10x3/uL (130-400); RBC 4.45 10x6/uL (4.00-5.40); RDW 21.4 % (11.5-14.5); WBC 5.1 10x3/uL (4.8-10.8)
[2020-12-09 17:40] LABS: APTT 27.7 SECONDS (22.8-39.4); INR 0.99 (0.85-1.17); PROTIME 12.1 SECONDS (11.6-15.0)
[2020-12-09 17:42] LABS: CALC OSMOLALITY 264 mosm/kg (275-300); CALCIUM 8.1 mg/dL (8.5-10.1); CARBON DIOXIDE 28.7 mmol/L (21.0-32.0); CHLORIDE - SERUM 98 mmol/L (98-107); CREATININE - SERUM 0.8 mg/dL (0.6-1.3); GLUCOSE 99 mg/dL (74-106); POTASSIUM - SERUM 4.4 mmol/L (3.5-5.1); SODIUM 131 mmol/L (136-145); UREA NITROGEN 18 mg/dL (7-18); eGFR NON AFRICAN AMERICAN 80 mL/min (90-120)
[2020-12-09 17:57] LABS: ALBUMIN 1.8 g/dL (3.4-5.0); ALKALINE PHOSPHATASE 307 U/L (30-120); ALT (SGPT) 29 U/L (10-68); BILIRUBIN - TOTAL 0.28 mg/dL (0.2-1.3); CKMB 0.4 U/L (0.0-3.6); CREATINE KINASE 67 UL (21-215)
[2020-12-09 18:01] LABS: TROPONIN-I < 0.017 ng/mL (0.000-0.060)
[2020-12-09 18:01] LABS: BILIRUBIN NEGATIVE (NEGATIVE); KETONE NEGATIVE (NEGATIVE); NITRITE NEGATIVE (NEGATIVE); UROBILINOGEN NORMAL mg/dL (< 2)
[2020-12-09 18:03] LABS: WHITE CELLS - URINE 0-5 HPF (0-4)
[2020-12-09 18:04] LABS: BACTERIA MODERATE HPF (NONE SEEN); SQUAMOUS EPITHELIAL 0-5 HPF (0-4)
[2020-12-09 18:08] VITALS: BP 101/69
[2020-12-09 18:30] VITALS: BP 97/67
--- NOTE | 2020-12-09 18:30 | NUR ---
97/67 (77) AFTER IVF BOLUS
[2020-12-09 19:13] VITALS: BP 98/73
--- NOTE | 2020-12-09 19:14 | NUR ---
BS REPORT TO CHON WALLACE
--- NOTE | 2020-12-09 22:24 | NUR ---
RECEIVED TO ROOM VIA [facility] FROM ER. ALERT.ORIENTED. RESP UNALBORED. IV TO RFA INTACT WITHOUT REDNESS OR EDEMA NOTED. ORIENTED TO ROOM..CL IN REACH
[2020-12-09 22:40] VITALS: BP 71/48
[2020-12-10 03:28] VITALS: BMI 17.1
[2020-12-10 05:42] LABS: BASOPHILS 0.6 % (0-2); EOSINOPHILS 0.5 % (0-7); HEMOGLOBIN 11.1 g/dL (12-16); LYMPHOCYTES 20.8 % (15-50); MCH 31.3 pg (26.0-34.0); MCHC 34.2 g/dL (31.0-37.0); MCV 91.4 fL (80.0-100.0); MEAN PLATELET VOLUME 7.2 fL (7.4-10.4); MONOCYTES 19.4 % (2-11); NEUTROPHILS 58.7 % (40-80); RDW 21.1 % (11.5-14.5); WBC 4.1 10x3/uL (4.8-10.8)
[2020-12-10 05:45] LABS: HEMATOCRIT 32.4 % (36.0-48.0); PLATELET COUNT 373 10x3/uL (130-400); RBC 3.54 10x6/uL (4.00-5.40)
[2020-12-10 06:04] LABS: ALKALINE PHOSPHATASE 220 U/L (30-120); CALC OSMOLALITY 262 mosm/kg (275-300); CALCIUM 7.1 mg/dL (8.5-10.1); CARBON DIOXIDE 26.9 mmol/L (21.0-32.0); CHLORIDE - SERUM 100 mmol/L (98-107); CREATININE - SERUM 0.7 mg/dL (0.6-1.3); GLUCOSE 75 mg/dL (74-106); MAGNESIUM - SERUM 1.2 mg/dL (1.8-2.4); POTASSIUM - SERUM 3.8 mmol/L (3.5-5.1); PROTEIN - SERUM 4.7 g/dL (6.4-8.2); SODIUM 131 mmol/L (136-145); UREA NITROGEN 16 mg/dL (7-18); eGFR NON AFRICAN AMERICAN > 90 mL/min (90-120)
[2020-12-10 06:05] LABS: ALBUMIN 1.3 g/dL (3.4-5.0); ALT (SGPT) 18 U/L (10-68)
[2020-12-10 06:38] VITALS: BP 78/44
[2020-12-10 09:28] VITALS: BP 82/54
[2020-12-10 12:16] VITALS: BP 77/48
[2020-12-10 14:47] VITALS: Ht 167.6 cm; Wt 48.1 kg
[2020-12-10 17:08] VITALS: BP 80/50
[2020-12-10 20:00] VITALS: BP 77/2
[2020-12-11 00:53] VITALS: BP 98/66
[2020-12-11 04:00] VITALS: BP 102/72
[2020-12-11 07:14] LABS: BASOPHILS 0.6 % (0-2); EOSINOPHILS 0.3 % (0-7); HEMATOCRIT 30.6 % (36.0-48.0); HEMOGLOBIN 10.5 g/dL (12-16); LYMPHOCYTES 13.3 % (15-50); MCH 31.3 pg (26.0-34.0); MCHC 34.3 g/dL (31.0-37.0); MCV 91.1 fL (80.0-100.0); MEAN PLATELET VOLUME 7.1 fL (7.4-10.4); MONOCYTES 15.8 % (2-11); PLATELET COUNT 337 10x3/uL (130-400); RBC 3.36 10x6/uL (4.00-5.40); RDW 21.5 % (11.5-14.5); WBC 4.8 10x3/uL (4.8-10.8)
[2020-12-11 08:04] LABS: ALBUMIN 2.2 g/dL (3.4-5.0); ALKALINE PHOSPHATASE 213 U/L (30-120); ALT (SGPT) 24 U/L (10-68); CALC OSMOLALITY 264 mosm/kg (275-300); CALCIUM 7.3 mg/dL (8.5-10.1); CARBON DIOXIDE 25.1 mmol/L (21.0-32.0); CHLORIDE - SERUM 101 mmol/L (98-107); CREATININE - SERUM 0.5 mg/dL (0.6-1.3); GLUCOSE 82 mg/dL (74-106); MAGNESIUM - SERUM 1.3 mg/dL (1.8-2.4); POTASSIUM - SERUM 3.2 mmol/L (3.5-5.1); PROTEIN - SERUM 5.1 g/dL (6.4-8.2); SODIUM 133 mmol/L (136-145); UREA NITROGEN 13 mg/dL (7-18); eGFR NON AFRICAN AMERICAN > 90 mL/min (90-120)
[2020-12-11 08:53] VITALS: BP 94/67
--- NOTE | 2020-12-11 09:50 | NUR ---
PT RESTING IN BED. C/O NAUSEA AND VOMITING. DENIES PAIN AT THIS TIME. IV TO LEFT UPPER ARM WITH NS @ 100ML/HR INFUSING VIA PUMP. SITE WITHOUT REDNESS OR EDEMA. DRAINS NOTED TO ABDOMEN. PT DENIES FURTHER NEEDS AT THIS TIME. CL WITHIN REACH. ENCOURAGED TO CALL WITH NEEDS. CONTINUE POC.
[2020-12-11 12:58] VITALS: BP 92/63
[2020-12-11 17:02] LABS: % SATURATION 45 % (15-55); IRON 33 ug/dl (35-150); TOTAL IRON BIND CAPACITY 72 ug/dl (260-445)
[2020-12-11 17:03] LABS: UNSAT IRON BIND CAPACITY 39 ug/dl (150-375)
[2020-12-11 17:11] VITALS: BP 91/61
[2020-12-11 20:00] VITALS: BP 93/64
[2020-12-12] VITALS: BP 96/62
[2020-12-12 04:00] VITALS: BP 100/69
[2020-12-12 05:32] LABS: BASOPHILS 0.4 % (0-2); EOSINOPHILS 0.1 % (0-7); HEMATOCRIT 30.7 % (36.0-48.0); HEMOGLOBIN 10.6 g/dL (12-16); LYMPHOCYTES 11.5 % (15-50); MCH 31.7 pg (26.0-34.0); MCHC 34.4 g/dL (31.0-37.0); MCV 92.2 fL (80.0-100.0); MONOCYTES 13.3 % (2-11); NEUTROPHILS 74.7 % (40-80); PLATELET COUNT 340 10x3/uL (130-400); RBC 3.33 10x6/uL (4.00-5.40); RDW 21.8 % (11.5-14.5)
[2020-12-12 05:52] LABS: ALBUMIN 2.6 g/dL (3.4-5.0); ALKALINE PHOSPHATASE 175 U/L (30-120); ALT (SGPT) 20 U/L (10-68); CALC OSMOLALITY 271 mosm/kg (275-300); CARBON DIOXIDE 26.6 mmol/L (21.0-32.0); CHLORIDE - SERUM 101 mmol/L (98-107); CREATININE - SERUM 0.5 mg/dL (0.6-1.3); GLUCOSE 96 mg/dL (74-106); PROTEIN - SERUM 5.5 g/dL (6.4-8.2); SODIUM 136 mmol/L (136-145); UREA NITROGEN 13 mg/dL (7-18); eGFR NON AFRICAN AMERICAN > 90 mL/min (90-120)
[2020-12-12 05:55] LABS: WBC 6.1 10x3/uL (4.8-10.8)
[2020-12-12 06:05] LABS: MAGNESIUM - SERUM 2.1 mg/dL (1.8-2.4); POTASSIUM - SERUM 3.7 mmol/L (3.5-5.1)
[2020-12-12 10:07] VITALS: BP 89/63
--- NOTE | 2020-12-12 12:43 | NUR ---
Nutrition Follow-up: Diet: Regular PO intake: ~20% average x last 4 meals. She states that she is hungry but is unable to eat 2/2 nausea. States that antimedics are not helping. She does not like Ensure or Boost. States that there is nothing that I could get her from the kitchen. Last BM: none since admit Wt: 106# (12/10/20) Meds noted: zofran IV, NS@100 Labs reviewed Recommend continue Regular diet. Will continue to honor food preferences. Hopefully nausea can be medically controlled and appetite/PO intake will improve. RD will follow-up within 2-3 days.
[2020-12-12 12:50] VITALS: BP 99/69
[2020-12-12 18:13] VITALS: BP 92/63
--- NOTE | 2020-12-12 19:45 | NUR ---
RECEIVED BEDSIDE REPORT. PT LAYING IN BED, A&O X4. PIV TO LEFT UPPER ARM, PATENT AND INFUSING, NO REDNESS OR SWELLING. PT ABLE TO AMBULATE AD ALLEN. EDUCATED PT ON CL AND NEEDS, VERBALIZED UNDERSTANDING. BED LOW, CL IN REACH.
[2020-12-12 20:00] VITALS: BP 87/62
[2020-12-13] VITALS: BP 87/60
[2020-12-13 04:00] VITALS: BP 92/66
[2020-12-13 05:04] LABS: BASOPHILS 0.4 % (0-2); EOSINOPHILS 0.7 % (0-7); HEMATOCRIT 26.4 % (36.0-48.0); LYMPHOCYTES 12.9 % (15-50); MCH 31.2 pg (26.0-34.0); MCHC 33.9 g/dL (31.0-37.0); MCV 92.1 fL (80.0-100.0); MEAN PLATELET VOLUME 6.8 fL (7.4-10.4); MONOCYTES 15.8 % (2-11); NEUTROPHILS 70.2 % (40-80); PLATELET COUNT 281 10x3/uL (130-400); RBC 2.87 10x6/uL (4.00-5.40); RDW 21.3 % (11.5-14.5)
[2020-12-13 05:05] LABS: WBC 4.3 10x3/uL (4.8-10.8)
[2020-12-13 05:12] LABS: ALBUMIN 2.5 g/dL (3.4-5.0); ALKALINE PHOSPHATASE 125 U/L (30-120); ALT (SGPT) 15 U/L (10-68); BILIRUBIN - TOTAL 0.56 mg/dL (0.2-1.3); CALC OSMOLALITY 273 mosm/kg (275-300); CALCIUM 7.1 mg/dL (8.5-10.1); CARBON DIOXIDE 25.5 mmol/L (21.0-32.0); CHLORIDE - SERUM 105 mmol/L (98-107); GLUCOSE 73 mg/dL (74-106); MAGNESIUM - SERUM 1.8 mg/dL (1.8-2.4); PROTEIN - SERUM 4.9 g/dL (6.4-8.2); SODIUM 138 mmol/L (136-145); UREA NITROGEN 11 mg/dL (7-18)
[2020-12-13 05:13] LABS: CREATININE - SERUM 0.3 mg/dL (0.6-1.3); eGFR NON AFRICAN AMERICAN > 90 mL/min (90-120)
[2020-12-13 08:56] VITALS: BP 82/51
[2020-12-13 17:24] VITALS: BP 101/59
--- NOTE | 2020-12-13 19:45 | NUR ---
RECEIVED BEDSIDE REPORT. PT LAYING IN BED A&O X4. PIV TO LEFT UPPER ARM, PATENT AND INFUSING, NO REDNESS OR SWELLING. TELEMETRY IN PLACE 103, ST. DRAINS X2 TO ABD. EDUCATED PT ON CL AND NEEDS, VERBALIZED UNDERSTANDING. BED LOW, CL IN REACH.
[2020-12-13 20:00] VITALS: BP 97/62
[2020-12-14] VITALS (7 sets, daily range): BP systolic 83–86; BP diastolic 54–57
[2020-12-14 06:11] LABS: BASOPHILS 0.7 % (0-2); EOSINOPHILS 1.1 % (0-7); HEMATOCRIT 26.5 % (36.0-48.0); HEMOGLOBIN 8.9 g/dL (12-16); LYMPHOCYTES 16.1 % (15-50); MCH 30.7 pg (26.0-34.0); MCHC 33.5 g/dL (31.0-37.0); MCV 91.6 fL (80.0-100.0); MEAN PLATELET VOLUME 6.8 fL (7.4-10.4); NEUTROPHILS 64.1 % (40-80); PLATELET COUNT 274 10x3/uL (130-400); RBC 2.89 10x6/uL (4.00-5.40); WBC 4.2 10x3/uL (4.8-10.8)
[2020-12-14 06:57] LABS: ALBUMIN 2.8 g/dL (3.4-5.0); ALKALINE PHOSPHATASE 115 U/L (30-120); ALT (SGPT) 16 U/L (10-68); CALCIUM 7.5 mg/dL (8.5-10.1); CARBON DIOXIDE 25.5 mmol/L (21.0-32.0); CHLORIDE - SERUM 104 mmol/L (98-107); GLUCOSE 93 mg/dL (74-106); MAGNESIUM - SERUM 1.7 mg/dL (1.8-2.4); POTASSIUM - SERUM 3.2 mmol/L (3.5-5.1); PROTEIN - SERUM 5.3 g/dL (6.4-8.2); SODIUM 136 mmol/L (136-145)
[2020-12-14 06:58] LABS: CALC OSMOLALITY 269 mosm/kg (275-300); CREATININE - SERUM 0.4 mg/dL (0.6-1.3); UREA NITROGEN 7 mg/dL (7-18); eGFR NON AFRICAN AMERICAN > 90 mL/min (90-120)
--- NOTE | 2020-12-14 10:05 | NUR ---
PT LYING IN BED. DID NOT EAT BREAKFAST. STATES HER MOM WILL BRING HER FOOD. IV CDI, RR EVEN NONLABORED. ALL NEEDS MET AT THIS TIME. CLWR.
--- NOTE | 2020-12-14 19:45 | NUR ---
RECEIVED BEDSIDE REPORT. PT LAYING IN BED A&O X4. PIV TO LEFT FOREARM PATENT AND INFUSING, NO REDNESS OR SWELLING. DRAINS X2 TO ABD, DISTENDED. TELEMETRY IN PLACE [address]. PT ABLE TO AMBUALTE AD ALLEN. EDUCATED PT ON CL AND NEEDS, VERBALIZED UNDERSTANDING. BED LOW, CL IN REACH.
[2020-12-15] VITALS: BP 86/54; BP 92/59
[2020-12-15 04:00] VITALS: BP 91/63
[2020-12-15 06:30] LABS: HEMATOCRIT 25.2 % (36.0-48.0); HEMOGLOBIN 8.6 g/dL (12-16); MCH 31.5 pg (26.0-34.0); MCV 92.6 fL (80.0-100.0); MEAN PLATELET VOLUME 7.2 fL (7.4-10.4); PLATELET COUNT 252 10x3/uL (130-400); RBC 2.72 10x6/uL (4.00-5.40); RDW 21.9 % (11.5-14.5); WBC 3.5 10x3/uL (4.8-10.8)
[2020-12-15 07:09] LABS: ALKALINE PHOSPHATASE 104 U/L (30-120); ALT (SGPT) 16 U/L (10-68); CALC OSMOLALITY 267 mosm/kg (275-300); CALCIUM 7.7 mg/dL (8.5-10.1); CARBON DIOXIDE 23.8 mmol/L (21.0-32.0); CHLORIDE - SERUM 104 mmol/L (98-107); CREATININE - SERUM 0.5 mg/dL (0.6-1.3); GLUCOSE 104 mg/dL (74-106); POTASSIUM - SERUM 3.6 mmol/L (3.5-5.1); PROTEIN - SERUM 5.3 g/dL (6.4-8.2); SODIUM 135 mmol/L (136-145); UREA NITROGEN 8 mg/dL (7-18); eGFR NON AFRICAN AMERICAN > 90 mL/min (90-120)
[2020-12-15 07:18] LABS: EOSINOPHILS 2 % (0-7); LYMPHOCYTES 13 % (15-50); MONOCYTES 1 % (2-11); NEUTROPHILS 84 % (40-80); PLATELET ESTIMATE NORMAL
--- NOTE | 2020-12-15 07:36 | NUR ---
RECIEVED BEDSIDE REPORT. BED LOW POSITION, CALL LIGHT IN REACH. IV INFUSING PER MAR. FREE FROM SIGNS OF DISTRESS. DENIES NEEDS AT THIS TIME. WILL CONTINUE TO MONITOR.
[2020-12-15 08:43] VITALS: BP 85/55
[2020-12-15] MEDS ORDERED: CARAFATE1 G PO (11:24)
[2020-12-15 13:01] VITALS: BP 88/59
--- NOTE | 2020-12-15 14:14 | MORECARE ---
CASE MANAGEMENT DISCHARGE SUMMARY PATIENT: DASHA MCFARLAND UNIT: [id number] ADM DATE: 12/09/20 AGE: 50 : 70 SEX: F ROOM/BED: D.2207 AUTHOR: KEELEY,DOC PHYSICIAN: REFERRING PHYSICIAN: JOAQUINA PEGUERO DO DATE OF SERVICE: 12/15/20 Case Management Discharge Planning Summary DCP REVIEW SUMMARY ANTICIPATED D/C DATE: EXPECTED LOS : CASE STATUS: DCP Initiated INITIAL REVIEW: 12/09/2020 INITIAL REVIEWER: Tameka Hamptno FINAL DISCHARGE DISPOSITION: 06 : Discharged/Trans to Home Under Care of Organized Home Health Service in Anticipation of Skilled Care FINAL REVIEWER: FINAL REVIEW DATE: DCP Focus Questions & Answers QUESTION: ANSWER : PATIENT: DASHA MCFARLAND ENCOUNTER: [id number] MEDICAL RECORD#: [id number] ADMISSION DATE: 12/09/2020 DISCHARGE DATE: ATTENDING MD: JOAQUINA TRIPP : AGE: 50 MARITAL STATUS: D DC PLAN ID: [id number] FACILITY: [facility] PRINTED ON: 12/15/20 14:14 CT All edits/amendments must be made on the electronic document DICTATION DATE: 12/15/201413 BURLAPPER: JOSE GUADALUPE 12/15/201413 RPT#: [id number] DC DATE: STATUS: ADM IN [facility] [address] [place] [address] END OF REPORT
--- NOTE | 2020-12-15 14:51 | MORECARE ---
CASE MANAGEMENT DISCHARGE SUMMARY PATIENT: DASHA MCFARLAND UNIT: [id number] ADM DATE: 12/09/20 AGE: 50 : 70 SEX: F ROOM/BED: D.2207 AUTHOR: KEELEY,DOC PHYSICIAN: REFERRING PHYSICIAN: JOAQUINA PEGUERO DO DATE OF SERVICE: 12/15/20 Case Management Discharge Planning Summary COMMENTS ENTERED DATE: 12/15/20 14:12 CT COMMENT TYPE: Discharge Planning REVIEWER: Tameka Hampton CM met with patient to complete initial dc planning assessment. CM educated patient on the CM role and verbal consent given by patient to complete assessment. Patient lives at home with her children. She stated that she will stay with her mom for a little bit for she goes to her home. [facility] with [facility]. She has all the DME that she needs. I will fax clinical to [facility]. Patient denied known discharge needs at this time. CM will continue to follow and will assist as needed with dc plans/needs. DCP REVIEW SUMMARY ANTICIPATED D/C DATE: EXPECTED LOS : CASE STATUS: DCP Initiated INITIAL REVIEW: 12/09/2020 INITIAL REVIEWER: Tameka Hampton FINAL DISCHARGE DISPOSITION: 06 : Discharged/Trans to Home Under Care of Organ[facility] Health Service in Anticipation of Skilled Care FINAL REVIEWER: FINAL REVIEW DATE: DCP Focus Questions & Answers QUESTION: ANSWER : PATIENT: DASHA MCFARLAND ENCOUNTER: [id number] MEDICAL RECORD#: [id number] ADMISSION DATE: 12/09/2020 DISCHARGE DATE: ATTENDING MD: JOAQUINA TRIPP : AGE: 50 MARITAL STATUS: D DC PLAN ID: [id number] FACILITY: [facility] PRINTED ON: 12/15/20 14:51 CT All edits/amendments must be made on the electronic document DICTATION DATE: 12/15/201450 GIS MANAGER: JOSE GUADALUPE 12/15/201450 RPT#: [id number] DC DATE: STATUS: ADM IN [facility] [address] [place] [address] END OF REPORT
--- NOTE | 2020-12-15 15:00 | NUR ---
DISCHARGE TEACHING COMPLETE. NO FURTHER QUESTIONS. IV CATH REMOVED, CATH TIP INTACT. BELONGINGS GATHERED, LEFT UNIT VIA WHEELCHAIR TO HOME AT THIS TIME.
--- NOTE | 2020-12-19 10:19 | MORECARE ---
CASE MANAGEMENT DISCHARGE SUMMARY PATIENT: DASHA MCFARLAND UNIT: [id number] ADM DATE: 12/09/20 AGE: 50 : 70 SEX: F ROOM/BED: D.2207 AUTHOR: KEELEY,DOC PHYSICIAN: REFERRING PHYSICIAN: JOAQUINA PEGUERO DO DATE OF SERVICE: 12/19/20 Case Management Discharge Planning Summary COMMENTS ENTERED DATE: 12/15/20 14:12 CT COMMENT TYPE: Discharge Planning REVIEWER: Tameka Hampton CM met with patient to complete initial dc planning assessment. CM educated patient on the CM role and verbal consent given by patient to complete assessment. Patient lives at home with her children. She stated that she will stay with her mom for a little bit for she goes to her home. She is [facility] with [facility]. She has all the DME that she needs. I will fax clinical to [facility]. Patient denied known discharge needs at this time. CM will continue to follow and will assist as needed with dc plans/needs. DCP REVIEW SUMMARY ANTICIPATED D/C DATE: EXPECTED LOS : CASE STATUS: DCP Initiated INITIAL REVIEW: 12/09/2020 INITIAL REVIEWER: Tameka Hampton FINAL DISCHARGE DISPOSITION: 06 : Discharged/Trans to Home Under Care of Organ[facility] Service in Anticipation of Skilled Care FINAL REVIEWER: FINAL REVIEW DATE: DCP Focus Questions & Answers QUESTION: ANSWER : PATIENT: DASHA MCFARLAND ENCOUNTER: [id number] MEDICAL RECORD#: [id number] ADMISSION DATE: 12/09/2020 DISCHARGE DATE: 12/15/2020 ATTENDING MD: JOAQUINA TRIPP : AGE: 50 MARITAL STATUS: D DC PLAN ID: [id number] FACILITY: [facility] PRINTED ON: 12/19/20 10:18 CT All edits/amendments must be made on the electronic document DICTATION DATE: 12/19/20 1018 SEAT COVER CUTTER: JOSE GUADALUPE 12/19/20 1018 RPT#: [id number] DC DATE:12/15/20 STATUS: DIS IN [facility] [address] [place] [address] END OF REPORT
--- NOTE | 2020-12-19 12:47 | MORECARE ---
CASE MANAGEMENT DISCHARGE SUMMARY PATIENT: DASHA MCFARLAND UNIT: [id number] ADM DATE: 12/09/20 AGE: 50 : 70 SEX: F ROOM/BED: D.2207 AUTHOR: KEELEY,DOC PHYSICIAN: REFERRING PHYSICIAN: JOAQUINA PEGUERO DO DATE OF SERVICE: 12/19/20 Case Management Discharge Planning Summary COMMENTS ENTERED DATE: 12/15/20 14:12 CT COMMENT TYPE: Discharge Planning REVIEWER: Tameka Hampton CM met with patient to complete initial dc planning assessment. CM educated patient on the CM role and verbal consent given by patient to complete assessment. Patient lives at home with her children. She stated that she will stay with her mom for a little bit for she goes to her home. [facility] She has all the DME that she needs. I will fax clinical to [facility]. Patient denied known discharge needs at this time. CM will continue to follow and will assist as needed with dc plans/needs. DCP REVIEW SUMMARY ANTICIPATED D/C DATE: EXPECTED LOS : CASE STATUS: DCP Initiated INITIAL REVIEW: 12/09/2020 INITIAL REVIEWER: Tameka Hampton FINAL DISCHARGE DISPOSITION: 06 : Discharged/Trans to Home [facility] of [facility] in Anticipation of Skilled Care FINAL REVIEWER: FINAL REVIEW DATE: DCP [facility] Questions & Answers QUESTION: ANSWER : PATIENT: DASHA MCFARLAND ENCOUNTER: [id number] MEDICAL RECORD#: [id number] ADMISSION DATE: 12/09/2020 DISCHARGE DATE: 12/15/2020 ATTENDING MD: JOAQUINA TRIPP : AGE: 50 MARITAL STATUS: D DC PLAN ID: [id number] FACILITY: [facility] PRINTED ON: 12/19/20 12:47 CT All edits/amendments must be made on the electronic document DICTATION DATE: 12/19/201246 SVP MONETIZATION: JOSE GUADALUPE 12/19/20 124 RPT#: [id number] DC DATE:12/15/20 STATUS: DIS IN [facility] [address] [place] [address] END OF REPORT
== END 2020-12-15 15:01 | disposition home health service (06) | DRG 754 ==
LOC: D.ER 16:42 → D.MS 21:11
PROVIDERS: Emergency Medicine; Internal Medicine Hematology & Oncology; ADMIT Family Medicine; ATTEND Family Medicine
DX: C56.9 Malignant neoplasm of unspecified ovary (principal); E43 Unspecified severe protein-calorie malnutrition; C78.7 Secondary malignant neoplasm of liver and intrahepatic bile duct; C79.89 Secondary malignant neoplasm of other specified sites; E87.1 Hypo-osmolality and hyponatremia; Z68.1 Body mass index [BMI] 19.9 or less, adult; J90 Pleural effusion, not elsewhere classified; R18.0 Malignant ascites; N30.00 Acute cystitis without hematuria; C78.6 Secondary malignant neoplasm of retroperitoneum and peritoneum; R53.1 Weakness; E86.0 Dehydration; R74.01 Elevation of levels of liver transaminase levels; D64.9 Anemia, unspecified; R53.81 Other malaise; R06.00 Dyspnea, unspecified; K21.9 Gastro-esophageal reflux disease without esophagitis; E83.51 Hypocalcemia; F17.200 Nicotine dependence, unspecified, uncomplicated

== ENCOUNTER 2020-12-20 19:36 | Inpatient (IN) | payer MEDICAID ==
[~2020-12-20] VITALS: Ht 167.6 cm; Wt 53.5 kg
--- NOTE | 2020-12-20 19:55 | NUR ---
PT HAS TWO DRAINS. ONE TO RUQ AND ONE TO RIGHT SIDE PT FAMILY STATES IT IS TO DRAIN FLUID IN ABD. PT REPORTS SHE DRAINS ABD AT HOME WITH HELP OF FAMILY.
[2020-12-20 20:00] VITALS: BP 101/70
[2020-12-20 20:00] LABS: BASOPHILS 0.2 % (0-2); EOSINOPHILS 0.5 % (0-7); HEMATOCRIT 32.5 % (36.0-48.0); LYMPHOCYTES 17.6 % (15-50); MCH 31.4 pg (26.0-34.0); MCHC 33.8 g/dL (31.0-37.0); MCV 92.9 fL (80.0-100.0); MEAN PLATELET VOLUME 7.3 fL (7.4-10.4); MONOCYTES 14.3 % (2-11); NEUTROPHILS 67.4 % (40-80); RDW 21.8 % (11.5-14.5); WBC 4.6 10x3/uL (4.8-10.8)
[2020-12-20 20:01] LABS: PLATELET COUNT 318 10x3/uL (130-400)
--- NOTE | 2020-12-20 20:08 | NUR ---
PT ASSISTED TO THE RESTROOM AT THIS TIME. UNABLE TO OBTAIN A URINE SAMPLE AT THIS TIME. THOMAS BAUM NOTIFIED
[2020-12-20 20:16] LABS: CALC OSMOLALITY 275 mosm/kg (275-300); CALCIUM 7.9 mg/dL (8.5-10.1); CARBON DIOXIDE 26.5 mmol/L (21.0-32.0); CHLORIDE - SERUM 100 mmol/L (98-107); CREATININE - SERUM 0.6 mg/dL (0.6-1.3); GLUCOSE 74 mg/dL (74-106); POTASSIUM - SERUM 3.9 mmol/L (3.5-5.1); SODIUM 136 mmol/L (136-145); UREA NITROGEN 26 mg/dL (7-18); eGFR NON AFRICAN AMERICAN > 90 mL/min (90-120)
[2020-12-20 20:23] LABS: ALBUMIN 2.3 g/dL (3.4-5.0); ALKALINE PHOSPHATASE 158 U/L (30-120); ALT (SGPT) 18 U/L (10-68); AMYLASE - SERUM 15 U/L (25-115); BILIRUBIN - TOTAL 0.53 mg/dL (0.2-1.3); PROTEIN - SERUM 4.9 g/dL (6.4-8.2)
[2020-12-20 20:31] LABS: LIPASE 12 U/L (73-393); TROPONIN-I < 0.017 ng/mL (0.000-0.060)
[2020-12-20 21:00] VITALS: BP 99/70
[2020-12-20 22:00] VITALS: BP 95/64
[2020-12-20 23:00] VITALS: BP 101/67
[2020-12-21] VITALS (10 sets, daily range): BP systolic 82–103; BP diastolic 55–73; Ht 167.6 cm; Wt 53.5 kg
--- NOTE | 2020-12-21 01:38 | NUR ---
PT MOVED TO INPATIENT HOSPITAL BED AT THIS TIME. PT VISITOR PROVIDED WITH RECLINER FOR COMFORT. PT DENEIS OTHER NEEDS AT THIS TIME. NO ACUTE DISTRESS NOTED, BED IN LOWEST POSITION, CALL LIGHT WITHIN REACH.
--- NOTE | 2020-12-21 08:03 | NUR ---
0700 BEDSIDE SHIPT REPORT RECEIVED AWAKE IN BED AAO X 4 STATING SHE IS GOING HOME THIS AM EXPLAINED THE DISCHARGE PROCESS TO PT VERIFIED UNDERSTANDINGH
--- NOTE | 2020-12-21 08:44 | NUR ---
CALLED REPORT TO ALYSSA GAMBOA RN.
--- NOTE | 2020-12-21 14:22 | NUR ---
SPOKE TO LEIGHTON IN REGARDS TO TPN FOR PATIENT, TPN SHOULD START AT 50, SPOKE TO CHERYL IN DIETARY WHO IS PLACING ORDER FOR TPN
[2020-12-22] VITALS (7 sets, daily range): BP systolic 84–112; BP diastolic 57–81
[2020-12-22 05:22] LABS: BASOPHILS 0.3 % (0-2); EOSINOPHILS 0 % (0-7); HEMATOCRIT 30.5 % (36.0-48.0); HEMOGLOBIN 10.5 g/dL (12-16); LYMPHOCYTES 7.2 % (15-50); MCHC 34.4 g/dL (31.0-37.0); MEAN PLATELET VOLUME 7.4 fL (7.4-10.4); MONOCYTES 6.2 % (2-11); NEUTROPHILS 86.3 % (40-80); PLATELET COUNT 319 10x3/uL (130-400); RBC 3.27 10x6/uL (4.00-5.40); WBC 4.8 10x3/uL (4.8-10.8)
[2020-12-22 05:50] LABS: ALBUMIN 2.2 g/dL (3.4-5.0); ALKALINE PHOSPHATASE 171 U/L (30-120); ALT (SGPT) 16 U/L (10-68); BILIRUBIN - TOTAL 0.34 mg/dL (0.2-1.3); CALCIUM 7.8 mg/dL (8.5-10.1); CARBON DIOXIDE 22.2 mmol/L (21.0-32.0); CHLORIDE - SERUM 101 mmol/L (98-107); CREATININE - SERUM 0.6 mg/dL (0.6-1.3); PROTEIN - SERUM 5.2 g/dL (6.4-8.2); SODIUM 134 mmol/L (136-145); UREA NITROGEN 25 mg/dL (7-18); eGFR NON AFRICAN AMERICAN > 90 mL/min (90-120)
[2020-12-22 05:54] LABS: CALC OSMOLALITY 272 mosm/kg (275-300); GLUCOSE 119 mg/dL (74-106); MAGNESIUM - SERUM 1.8 mg/dL (1.8-2.4); POTASSIUM - SERUM 4.5 mmol/L (3.5-5.1)
[2020-12-22 23:52] LABS: BACTERIA FEW HPF (<MOD); BILIRUBIN NEGATIVE (NEGATIVE); GRANULAR CAST 1 LPF (0-1); KETONE 1+ mg/dL (< 1+); NITRITE NEGATIVE (NEGATIVE); SQUAMOUS EPITHELIAL 2 HPF (0-4); UROBILINOGEN NORMAL mg/dL (< 2); WHITE CELLS - URINE 2 HPF (0-4)
[2020-12-23] VITALS: BP 93/65
[2020-12-23 04:00] VITALS: BP 97/72
[2020-12-23 05:29] LABS: BASOPHILS 0.1 % (0-2); EOSINOPHILS 0 % (0-7); HEMATOCRIT 28.6 % (36.0-48.0); HEMOGLOBIN 9.7 g/dL (12-16); LYMPHOCYTES 4.4 % (15-50); MCH 31.7 pg (26.0-34.0); MCHC 34.1 g/dL (31.0-37.0); MCV 92.9 fL (80.0-100.0); MEAN PLATELET VOLUME 7.4 fL (7.4-10.4); MONOCYTES 5.5 % (2-11); PLATELET COUNT 281 10x3/uL (130-400); RBC 3.08 10x6/uL (4.00-5.40); RDW 21.7 % (11.5-14.5); WBC 5.6 10x3/uL (4.8-10.8)
[2020-12-23 05:55] LABS: ALBUMIN 2.1 g/dL (3.4-5.0); ALKALINE PHOSPHATASE 201 U/L (30-120); ALT (SGPT) 19 U/L (10-68); BILIRUBIN - TOTAL 0.26 mg/dL (0.2-1.3); CALC OSMOLALITY 270 mosm/kg (275-300); CALCIUM 7.4 mg/dL (8.5-10.1); CARBON DIOXIDE 22.7 mmol/L (21.0-32.0); CHLORIDE - SERUM 102 mmol/L (98-107); CREATININE - SERUM 0.5 mg/dL (0.6-1.3); GLUCOSE 122 mg/dL (74-106); MAGNESIUM - SERUM 1.6 mg/dL (1.8-2.4); POTASSIUM - SERUM 4.6 mmol/L (3.5-5.1); PROTEIN - SERUM 5.2 g/dL (6.4-8.2); SODIUM 133 mmol/L (136-145); UREA NITROGEN 24 mg/dL (7-18); eGFR NON AFRICAN AMERICAN > 90 mL/min (90-120)
[2020-12-23 09:41] VITALS: BP 99/72
[2020-12-23 12:07] VITALS: BP 97/74
--- NOTE | 2020-12-23 14:12 | NUR ---
Nutrition follow-up: ProcalAmine PPN @ 50 ml/hr Labs reviewed Wt: 117# Pt with severe malnutrition of chronic illness Diet order: Clear liquids ProcalAmine PPN @ 50 ml/hr providin kcal (18-22%) 36 gm protein (49-68%) RDN will order Ensure clear on clear liquid tray to increase kcal, protein intake RDN will follow-up on pts progress in 3-5 days.
[2020-12-23 18:10] VITALS: BP 93/73
[2020-12-23 21:05] VITALS: BP 107/71
[2020-12-24 00:16] VITALS: BP 96/68
[2020-12-24 04:25] VITALS: BP 100/64
[2020-12-24 06:27] LABS: BASOPHILS 0.1 % (0-2); EOSINOPHILS 0 % (0-7); HEMATOCRIT 29.6 % (36.0-48.0); HEMOGLOBIN 9.9 g/dL (12-16); LYMPHOCYTES 9.7 % (15-50); MCH 31.2 pg (26.0-34.0); MCHC 33.3 g/dL (31.0-37.0); MCV 93.7 fL (80.0-100.0); MEAN PLATELET VOLUME 7.1 fL (7.4-10.4); MONOCYTES 11.8 % (2-11); NEUTROPHILS 78.4 % (40-80); RBC 3.16 10x6/uL (4.00-5.40); RDW 21.3 % (11.5-14.5); WBC 4.6 10x3/uL (4.8-10.8)
[2020-12-24 06:29] LABS: PLATELET COUNT 207 10x3/uL (130-400)
[2020-12-24 06:49] LABS: ALBUMIN 2.1 g/dL (3.4-5.0); ALKALINE PHOSPHATASE 196 U/L (30-120); ALT (SGPT) 19 U/L (10-68); BILIRUBIN - TOTAL 0.21 mg/dL (0.2-1.3); CALC OSMOLALITY 268 mosm/kg (275-300); CALCIUM 7.9 mg/dL (8.5-10.1); CARBON DIOXIDE 24.6 mmol/L (21.0-32.0); CHLORIDE - SERUM 101 mmol/L (98-107); CREATININE - SERUM 0.5 mg/dL (0.6-1.3); GLUCOSE 99 mg/dL (74-106); MAGNESIUM - SERUM 1.7 mg/dL (1.8-2.4); POTASSIUM - SERUM 4.6 mmol/L (3.5-5.1); PROTEIN - SERUM 5.4 g/dL (6.4-8.2); SODIUM 132 mmol/L (136-145); UREA NITROGEN 23 mg/dL (7-18); eGFR NON AFRICAN AMERICAN > 90 mL/min (90-120)
--- NOTE | 2020-12-24 07:51 | NUR ---
I have reviewed this patient and I concur with the Shift Assessment completed by the Licensed Practical Nurse today this shift.
[2020-12-24 08:20] VITALS: BP 99/69
--- NOTE | 2020-12-24 12:52 | NUR ---
RESTING,WITHOUT SIGNS OF DISTRESS.MONITOR
[2020-12-24 13:22] VITALS: BP 104/71
--- NOTE | 2020-12-24 15:20 | NUR ---
PATIENT HAS SPOKE WITH HER MOM. HISTOPATHOLOGY TECHNICIAN TO COME SEE PATIENT
[2020-12-24 20:00] VITALS: BP 92/68
[2020-12-25] VITALS: BP 96/69
--- NOTE | 2020-12-25 03:00 | NUR ---
I have reviewed this patient and I concur with the Shift Assessment completed by the Licensed Practical Nurse today this shift.
[2020-12-25 04:00] VITALS: BP 94/69
[2020-12-25 06:25] LABS: BASOPHILS 0.1 % (0-2); EOSINOPHILS 0.1 % (0-7); HEMOGLOBIN 9.6 g/dL (12-16); LYMPHOCYTES 10.5 % (15-50); MCH 31.1 pg (26.0-34.0); MCHC 33.3 g/dL (31.0-37.0); MCV 93.3 fL (80.0-100.0); MEAN PLATELET VOLUME 7.2 fL (7.4-10.4); NEUTROPHILS 78.3 % (40-80); PLATELET COUNT 199 10x3/uL (130-400)
[2020-12-25 06:30] LABS: WBC 3.3 10x3/uL (4.8-10.8)
[2020-12-25 07:21] LABS: ALBUMIN 2.1 g/dL (3.4-5.0); ALKALINE PHOSPHATASE 178 U/L (30-120); ALT (SGPT) 17 U/L (10-68); BILIRUBIN - TOTAL 0.19 mg/dL (0.2-1.3); CALC OSMOLALITY 265 mosm/kg (275-300); CARBON DIOXIDE 23.3 mmol/L (21.0-32.0); CHLORIDE - SERUM 99 mmol/L (98-107); CREATININE - SERUM 0.5 mg/dL (0.6-1.3); GLUCOSE 93 mg/dL (74-106); POTASSIUM - SERUM 4.5 mmol/L (3.5-5.1); PROTEIN - SERUM 5.5 g/dL (6.4-8.2); SODIUM 131 mmol/L (136-145); UREA NITROGEN 22 mg/dL (7-18); eGFR NON AFRICAN AMERICAN > 90 mL/min (90-120)
[2020-12-25 08:27] VITALS: BP 106/76
--- NOTE | 2020-12-25 09:00 | NUR ---
ASSESSMENT PER FLOW SHEET. PATIENT IS WITHOUT DISTRESS. FALL PREVENTION WITH BED ALARM. MONITOR
--- NOTE | 2020-12-25 12:06 | NUR ---
DR IZQUIERDO TO SEE PATIENT. PATIENT IS NOT DOING WELL TODAY. SHE IS TALKING TO PATIENT RE.. CODE STATUS AND POSSIBLE HOSPICE CONSULT. PATIENT IS NOT SPEAKING MUCH. INSTRUCTED TO CALL FAMILY PER DR. IZQUIERDO. CALL TO HER MOTHER JUL [phone]. HER AND FAMILY ARE COMING TO VISIT WITH DR IZQUIERDO.
--- NOTE | 2020-12-25 12:11 | NUR ---
SPOKE WITH DR IZQUIERDO. SHE IS TO CALL ANDREAS THE PATIENTS MOM.
[2020-12-25 13:02] VITALS: BP 104/77
--- NOTE | 2020-12-25 16:16 | MORECARE ---
CASE MANAGEMENT DISCHARGE SUMMARY PATIENT: DASHA MCFARLAND UNIT: [id number] ADM DATE: 12/20/20 AGE: 50 : 70 SEX: F ROOM/BED: D.2238 AUTHOR: KEELEY,DOC PHYSICIAN: REFERRING PHYSICIAN: GUNNER KANG MD DATE OF SERVICE: 12/25/20 Case Management Discharge Planning Summary COMMENTS ENTERED DATE: 12/25/20 16:08 CT COMMENT TYPE: Discharge Planning REVIEWER: Lance Santos Received Consult for Hospice. Spoke with patient's mother, Dwain Byrd, . OMID for [facility] signed and placed in chart. Spoke with Josafat of [facility]. Clinicals Faxed. Josafat to speak with patient's mother. CM will continue to follow and will assist as needed with dc plans/needs. DCP REVIEW SUMMARY ANTICIPATED D/C DATE: EXPECTED LOS : CASE STATUS: DCP Initiated INITIAL REVIEW: 12/20/2020 INITIAL REVIEWER: Lance Santos FINAL DISCHARGE DISPOSITION: : FINAL REVIEWER: FINAL REVIEW DATE: DCP [facility] Questions & Answers QUESTION: ANSWER : PATIENT: DASHA MCFARLAND ENCOUNTER: [id number] MEDICAL RECORD#: [id number] ADMISSION DATE: 12/20/2020 DISCHARGE DATE: ATTENDING MD: DEEPA: AGE: 50 MARITAL STATUS: D DC PLAN ID: [id number] FACILITY: [facility] PRINTED ON: 12/25/20 16:16 CT All edits/amendments must be made on the electronic document DICTATION DATE: 12/25/201615 SILVERWARE ASSEMBLER: JOSE GUADALUPE 12/25/20 161 RPT#: [id number] DC DATE: STATUS: ADM IN [facility] [address] [place] [address] END OF REPORT
--- NOTE | 2020-12-25 17:20 | MORECARE ---
CASE MANAGEMENT DISCHARGE SUMMARY PATIENT: DASHA MCFARLAND UNIT: [id number] ADM DATE: 12/20/20 AGE: 50 : 70 SEX: F ROOM/BED: D.2238 AUTHOR: KEELEY,DOC PHYSICIAN: REFERRING PHYSICIAN: GUNNER KANG MD DATE OF SERVICE: 12/25/20 Case Management Discharge Planning Summary COMMENTS ENTERED DATE: 12/25/20 16:08 CT COMMENT TYPE: Discharge Planning REVIEWER: Lance Tom Received Consult for Hospice. Spoke with patient's mother, Dwain Byrd, . OMID for [facility] signed and placed in chart. Spoke with Josafat of [facility]. Clinicals Faxed. Josafat to speak with patient's mother. CM will continue to follow and will assist as needed with dc plans/needs. Appended by Lance Santos on 12/25/2020 17:09 CDT: Josafat from [facility] met with the patient and family. Josafat stated that legal documents have been signed and the patient is ready for home admit post Discharge. CM will continue to follow and will assist as needed with dc plans/needs. DCP REVIEW SUMMARY ANTICIPATED D/C DATE: EXPECTED LOS : CASE STATUS: DCP Initiated INITIAL REVIEW: 12/20/2020 INITIAL REVIEWER: Lance Santos FINAL DISCHARGE DISPOSITION: : FINAL REVIEWER: FINAL REVIEW DATE: DCP [facility] Questions & Answers QUESTION: ANSWER : PATIENT: DASHA MCFARLAND ENCOUNTER: [id number] MEDICAL RECORD#: [id number] ADMISSION DATE: 12/20/2020 DISCHARGE DATE: ATTENDING MD: : AGE: 50 MARITAL STATUS: D DC PLAN ID: [id number] FACILITY: [facility] PRINTED ON: 12/25/20 17:20 CT All edits/amendments must be made on the electronic document DICTATION DATE: 12/25/201719 CHLORINE PLANT OPERATOR: JOSE GUADALUPE 12/25/201719 RPT#: [id number] DC DATE: STATUS: ADM IN [facility] [address] [place] [address] END OF REPORT
[2020-12-25 17:27] VITALS: BP 96/75
[2020-12-25 20:00] VITALS: BP 100/72
--- NOTE | 2020-12-25 23:10 | NUR ---
CHANGED LINENS AND DRAINED ABD PER PT REQUEST WITH [facility] DRAIN
[2020-12-26] VITALS: BP 93/67
--- NOTE | 2020-12-26 03:00 | NUR ---
I have reviewed this patient and I concur with the Shift Assessment completed by the Licensed Practical Nurse today this shift.
[2020-12-26 04:00] VITALS: BP 95/70
[2020-12-26 06:11] LABS: BASOPHILS 0 % (0-2); EOSINOPHILS 0.8 % (0-7); HEMATOCRIT 26.7 % (36.0-48.0); HEMOGLOBIN 9.1 g/dL (12-16); LYMPHOCYTES 14.8 % (15-50); MCH 31.5 pg (26.0-34.0); MCHC 34.1 g/dL (31.0-37.0); MCV 92.4 fL (80.0-100.0); MEAN PLATELET VOLUME 7.2 fL (7.4-10.4); MONOCYTES 12.1 % (2-11); NEUTROPHILS 72.3 % (40-80); PLATELET COUNT 188 10x3/uL (130-400); RBC 2.89 10x6/uL (4.00-5.40)
[2020-12-26 06:20] LABS: WBC 4.4 10x3/uL (4.8-10.8)
[2020-12-26 06:33] LABS: ALKALINE PHOSPHATASE 198 U/L (30-120); ALT (SGPT) 19 U/L (10-68); BILIRUBIN - TOTAL 0.25 mg/dL (0.2-1.3); CALC OSMOLALITY 264 mosm/kg (275-300); CALCIUM 7.8 mg/dL (8.5-10.1); CARBON DIOXIDE 24.1 mmol/L (21.0-32.0); CHLORIDE - SERUM 100 mmol/L (98-107); CREATININE - SERUM 0.4 mg/dL (0.6-1.3); GLUCOSE 84 mg/dL (74-106); MAGNESIUM - SERUM 1.8 mg/dL (1.8-2.4); POTASSIUM - SERUM 4.4 mmol/L (3.5-5.1); PROTEIN - SERUM 5.3 g/dL (6.4-8.2); SODIUM 131 mmol/L (136-145); UREA NITROGEN 21 mg/dL (7-18); eGFR NON AFRICAN AMERICAN > 90 mL/min (90-120)
[2020-12-26 09:25] VITALS: BP 91/65
[2020-12-26] MEDS ORDERED: FLORAJEN DIGES1 EACH PO (11:23)
[2020-12-26] MEDS ORDERED: ZITHROMAX500 MG PO (11:24)
[2020-12-26] MEDS ORDERED: TUMS PO (11:24)
[2020-12-26] MEDS ORDERED: OMNICEF300 MG PO (11:24)
[2020-12-26 12:45] VITALS: BP 93/62
[2020-12-26 15:46] VITALS: BP 93/67
--- NOTE | 2020-12-26 16:08 | NUR ---
CALLED [facility] FOR PT TRANSFER HOME WITH [facility], ALL INFORMATION GIVEN, WILL BE HERE WITHIN 45 MINUTES TO AN HOUR, AROUND 2919
--- NOTE | 2020-12-26 16:20 | MORECARE ---
CASE MANAGEMENT DISCHARGE SUMMARY PATIENT: DASHA MCFARLAND UNIT: [id number] ADM DATE: 12/20/20 AGE: 50 : 70 SEX: F ROOM/BED: D.2238 AUTHOR: KEELEY,DOC PHYSICIAN: REFERRING PHYSICIAN: GUNNER KANG MD DATE OF SERVICE: 12/26/20 Case Management Discharge Planning Summary COMMENTS ENTERED DATE: 12/25/20 16:08 CT COMMENT TYPE: Discharge Planning REVIEWER: Lance Tom Received Consult for Hospice. Spoke with patient's mother, Dwain Byrd, . OMID for [facility] signed and placed in chart. Spoke with Josafat of [facility]. Clinicals Faxed. Josafat to speak with patient's mother. CM will continue to follow and will assist as needed with dc plans/needs. Appended by Lance Santos on 12/25/2020 17:09 CDT: Josafat from [facility] met with the patient and family. Josafat stated that legal documents have been signed and the patient is ready for home admit post Discharge. CM will continue to follow and will assist as needed with dc plans/needs. DCP REVIEW SUMMARY ANTICIPATED D/C DATE: EXPECTED LOS : CASE STATUS: DCP Initiated INITIAL REVIEW: 12/20/2020 INITIAL REVIEWER: Lance Santos FINAL DISCHARGE DISPOSITION: : FINAL REVIEWER: FINAL REVIEW DATE: DCP [facility] Questions & Answers QUESTION: ANSWER : PATIENT: DASHA MCFARLAND ENCOUNTER: [id number] MEDICAL RECORD#: [id number] ADMISSION DATE: 12/20/2020 DISCHARGE DATE: ATTENDING MD: : AGE: 50 MARITAL STATUS: D DC PLAN ID: [id number] FACILITY: [facility] PRINTED ON: 12/26/20 16:20 CT All edits/amendments must be made on the electronic document DICTATION DATE: 12/26/201619 HRBP: JOSE GUADALUPE 12/26/201619 RPT#: [id number] DC DATE: STATUS: ADM IN [facility] [address] [place] [address] END OF REPORT
--- NOTE | 2020-12-26 16:39 | NUR ---
PT LEFT VIA STRETCHER WITH ASSISTANCE FROM [facility], NO SIGNS OF DISTRESS, PT MEDICATED WITH [facility] FOR TRANSPORT, RIGHT CHEST PORT DRESSED WITH BIOPATCH AND TEGADERM USING STERILE TECHNIQUE, SALINE LOCKED, PT TOLERATED WELL
--- NOTE | 2020-12-26 16:57 | MORECARE ---
CASE MANAGEMENT DISCHARGE SUMMARY PATIENT: DASHA MCFARLAND UNIT: [id number] ADM DATE: 12/20/20 AGE: 50 : 70 SEX: F ROOM/BED: D.2238 AUTHOR: KEELEY,DOC PHYSICIAN: REFERRING PHYSICIAN: GUNNER KANG MD DATE OF SERVICE: 12/26/20 Case Management Discharge Planning Summary COMMENTS ENTERED DATE: 12/25/20 16:08 CT COMMENT TYPE: Discharge Planning REVIEWER: Lance Tom Received Consult for Hospice. Spoke with patient's mother, Dwain Byrd, . OMID for [facility] signed and placed in chart. Spoke with Josafat of [facility]. Clinicals Faxed. Josafat to speak with patient's mother. CM will continue to follow and will assist as needed with dc plans/needs. Appended by Lance Santos on 12/25/2020 17:09 CDT: Josafat from [facility] met with the patient and family. Josafat stated that legal documents have been signed and the patient is ready for home admit post Discharge. CM will continue to follow and will assist as needed with dc plans/needs. DCP REVIEW SUMMARY ANTICIPATED D/C DATE: EXPECTED LOS : CASE STATUS: DCP Initiated INITIAL REVIEW: 12/20/2020 INITIAL REVIEWER: Lance Santos FINAL DISCHARGE DISPOSITION: : FINAL REVIEWER: FINAL REVIEW DATE: DCP [facility] Questions & Answers QUESTION: ANSWER : PATIENT: DASHA MCFARLAND ENCOUNTER: [id number] MEDICAL RECORD#: [id number] ADMISSION DATE: 12/20/2020 DISCHARGE DATE: 12/26/2020 ATTENDING MD: DEEPA: AGE: 50 MARITAL STATUS: D DC PLAN ID: [id number] FACILITY: [facility] PRINTED ON: 12/26/20 16:57 CT All edits/amendments must be made on the electronic document DICTATION DATE: 12/26/201656 AGRICULTURAL SPECIALIST: JOSE GUADALUPE 12/26/201656 RPT#: [id number] DC DATE:12/26/20 STATUS: DIS IN [facility] [address] [place] [address] END OF REPORT
--- NOTE | 2020-12-27 16:27 | MORECARE ---
CASE MANAGEMENT DISCHARGE SUMMARY PATIENT: DASHA MCFARLAND UNIT: [id number] ADM DATE: 12/20/20 AGE: 50 : 70 SEX: F ROOM/BED: D.2238 AUTHOR: KEELEY,DOC PHYSICIAN: REFERRING PHYSICIAN: GUNNER KANG MD DATE OF SERVICE: 12/27/20 Case Management Discharge Planning Summary COMMENTS ENTERED DATE: 12/25/20 16:08 CT COMMENT TYPE: Discharge Planning REVIEWER: Lance Tom Received Consult for Hospice. Spoke with patient's mother, Dwain Byrd, . OMID for [facility] signed and placed in chart. Spoke with Josafat of [facility]. Clinicals Faxed. Josafat to speak with patient's mother. CM will continue to follow and will assist as needed with dc plans/needs. Appended by Lance Santos on 12/25/2020 17:09 CDT: Josafat from [facility] met with the patient and family. Josafat stated that legal documents have been signed and the patient is ready for home admit post Discharge. CM will continue to follow and will assist as needed with dc plans/needs. DCP REVIEW SUMMARY ANTICIPATED D/C DATE: EXPECTED LOS : CASE STATUS: DCP Complete INITIAL REVIEW: 12/20/2020 INITIAL REVIEWER: Lance Santos FINAL DISCHARGE DISPOSITION: : FINAL REVIEWER: FINAL REVIEW DATE: DCP [facility] Questions & Answers QUESTION: ANSWER : PATIENT: DASHA MCFARLAND ENCOUNTER: [id number] MEDICAL RECORD#: [id number] ADMISSION DATE: 12/20/2020 DISCHARGE DATE: 12/26/2020 ATTENDING MD: DEEPA: AGE: 50 MARITAL STATUS: D DC PLAN ID: [id number] FACILITY: [facility] PRINTED ON: 12/27/20 16:27 CT All edits/amendments must be made on the electronic document DICTATION DATE: 12/27/201626 STAINED GLASS JOINER: JOSE GUADALUPE 12/27/201626 RPT#: [id number] DC DATE:12/26/20 STATUS: DIS IN [facility] [address] [place] [address] END OF REPORT
--- NOTE | 2020-12-29 13:10 | MORECARE ---
CASE MANAGEMENT DISCHARGE SUMMARY PATIENT: DASHA MCFARLAND UNIT: [id number] ADM DATE: 12/20/20 AGE: 50 : 70 SEX: F ROOM/BED: D.2238 AUTHOR: KEELEY,DOC PHYSICIAN: REFERRING PHYSICIAN: GUNNER KANG MD DATE OF SERVICE: 12/29/20 Case Management Discharge Planning Summary COMMENTS ENTERED DATE: 12/25/20 16:08 CT COMMENT TYPE: Discharge Planning REVIEWER: Lance Tom Received Consult for Hospice. Spoke with patient's mother, Dwain Byrd, . OMID for [facility] signed and placed in chart. Spoke with Josafat of [facility]. Clinicals Faxed. Josafat to speak with patient's mother. CM will continue to follow and will assist as needed with dc plans/needs. Appended by Lance Santos on 12/25/2020 17:09 CDT: Josafat from [facility] met with the patient and family. Josafat stated that legal documents have been signed and the patient is ready for home admit post Discharge. CM will continue to follow and will assist as needed with dc plans/needs. DCP REVIEW SUMMARY ANTICIPATED D/C DATE: EXPECTED LOS : CASE STATUS: DCP Complete INITIAL REVIEW: 12/20/2020 INITIAL REVIEWER: Lance Santos FINAL DISCHARGE DISPOSITION: : FINAL REVIEWER: FINAL REVIEW DATE: DCP [facility] Questions & Answers QUESTION: ANSWER : PATIENT: DASHA MCFARLAND ENCOUNTER: [id number] MEDICAL RECORD#: [id number] ADMISSION DATE: 12/20/2020 DISCHARGE DATE: 12/26/2020 ATTENDING MD: DEEPA: AGE: 50 MARITAL STATUS: D DC PLAN ID: [id number] FACILITY: [facility] PRINTED ON: 12/29/20 13:10 CT All edits/amendments must be made on the electronic document DICTATION DATE: 12/29/20 131 REPORT PROGRAMMER: JOSE GUADALUPE 12/29/20 1310 RPT#: [id number] DC DATE:12/26/20 STATUS: DIS IN [facility] [address] [place] [address] END OF REPORT
== END 2020-12-26 16:49 | disposition home health service (06) | DRG 374 ==
LOC: D.ER 19:36 → D.MS 21:48 → D.EDHOLD 21:48 → D.MS 12-21 07:40
PROVIDERS: Family Medicine; ADMIT Family Medicine; ATTEND Family Medicine
DX: C78.6 Secondary malignant neoplasm of retroperitoneum and peritoneum (principal); E43 Unspecified severe protein-calorie malnutrition; J18.9 Pneumonia, unspecified organism; C56.9 Malignant neoplasm of unspecified ovary; C78.7 Secondary malignant neoplasm of liver and intrahepatic bile duct; R18.8 Other ascites; Z68.1 Body mass index [BMI] 19.9 or less, adult; C78.89 Secondary malignant neoplasm of other digestive organs; M62.81 Muscle weakness (generalized); E86.0 Dehydration; D72.819 Decreased white blood cell count, unspecified; D64.9 Anemia, unspecified; F17.200 Nicotine dependence, unspecified, uncomplicated